=== PATIENT | male | born 1960 | race African-American/Black ===

== ENCOUNTER 2017-02-09 23:40 | Inpatient (IN) ==
[2017-02-10] MEDS ORDERED: ONDANSETRON 4 MG/2 ML VIAL IV STA (00:02)
[2017-02-10] MEDS ORDERED: SODIUM CHLORIDE 0.9% 500 ML IV STA (00:02)
[2017-02-10] MEDS ORDERED: NITROGLYCERIN 2% OINT 1 INCH/GM PACK TOP STA (00:02)
[2017-02-10] MEDS ORDERED: MORPHINE 2 MG/1 ML SYRINGE IV STA (00:02)
[2017-02-10] MEDS ORDERED: ASPIRIN 325 MG TABLET PO STA (00:02)
[2017-02-10] MEDS ORDERED: hydrALAZINE 20 MG/1 ML VIAL IV STA (00:03)
[2017-02-10] MEDS ORDERED: NITROGLYCERIN 2% OINT 1 INCH/GM PACK TOP ONE (00:08)
[2017-02-10] MEDS ORDERED: hydrALAZINE 20 MG/1 ML VIAL ONE (00:08)
[2017-02-10] MEDS ORDERED: ONDANSETRON 4 MG/2 ML VIAL ONE (00:08)
[2017-02-10] MEDS ORDERED: MORPHINE 2 MG/1 ML SYRINGE ONE (00:09)
[2017-02-10] MEDS ORDERED: ASPIRIN 325 MG TABLET ONE (00:09)
[2017-02-10 00:24] LABS: Apearance,Urine CLEAR (Clear); Bilirubin,Urine Negative (Negative); Blood, Urine Moderate mg/dL (Negative); Glucose,Urine (UA) 150 mg/dL (Negative); Ketones,Urine Negative (Negative); Nitrite,Urine Negative (Negative); Protein,Urine 30 MG/DL; RBC,Urine 33 /HPF (0-4); Urine Color Straw (Yellow); Urine Specific Gravity 1.006 (1.001-1.035); Urine Urobilinogen < 2.0 EU/DL (0.2-1.0); WBC,Urine 1 /HPF (0-6)
[2017-02-10 00:33] LABS: Bilirubin,Total 0.4 MG/DL (0.2-1.0); Magnesium 2.5 MG/DL (1.8-2.4); Osmolality,Calculated 284.1 MOS/KG (273-304); Potassium 3.4 MMOL/L (3.5-5.1); Total Protein 6.5 G/DL (6.4-8.3)
[2017-02-10 00:35] LABS: Basophils # 0.1 10*3/uL (0.0-0.2); Basophils % 0.6 % (0.0-0.8); Eosinophils # 0.2 10*3/uL (0.0-0.87); Hematocrit 41.9 VOL% (42.0-52.0); Hemoglobin 13.6 GM/DL (14.0-18.0); Immature Granulocytes % 0.8 %; Immature Granulocytes Absolute 0.09 #; Lymphocytes # 1.9 10*3/uL (1.4-4.0); Lymphocytes % 16.9 % (21.2-54.2); Mean Corpuscular HGB Conc 32.5 GM/DL (32-36); Mean Corpuscular Hemoglobin 29 PG (27-34); Mean Corpuscular Volume 89.9 FL (87-102); Mean Platelet Volume 10.6 FL (9.6-12.0); Monocytes # 0.9 10*3/uL (0.11-0.8); Monocytes % 8.3 % (1.7-12.7); Neutrophils # 7.9 10*3/uL (1.4-7.4); Neutrophils % 71.4 % (38.7-73.9); Platelet Count 235 T/CUMM (130-400); Red Blood Count 4.66 MC/CUMM (3.8-5.5); Red Cell Distribution Width 12.1 % (9.3-17.3); White Blood Count 11.1 T/CUMM (4-12)
--- NOTE | 2017-02-10 00:43 | Emergency Department Note ---
Raven Boyd Emily, am scribing for, and in the presence of, Zay Tim MD 00: 08. Glenroy Boyd Robert M, MD, personally performed the services described in this documentation, ascribed by Sarika Carbajal in my presence, and it is both accurate and complete . Arrival - Arrival Chief Complaint: Chest Pain Stated Complaint: chest pain ED Nursing Triage Note: Patient to room via ems. Patient complaining of chest pain and shortness of breath. EMS activated a stemi. rober notified but wanted EKG in the Er. Patient has demished breath sound on the right lower lobe. Patient states that he ran out of his medication yesterday and has not had his medication today. Mode of Arrival: Stretcher Limitations: No Limitations Source: Patient - History of Present Illness HPI Narrative: Pt is a 56 y/o male who came to ED by EMS for further evaluation of possible ST elevation that started earlier tonight. A STEMI alert initially was called, however, Dr. Jorgensen was alerted and he discontinued the STEMI alert and deferred the patient to the emergency department for further evaluation due to EKG results. Pt states mid sternal, non radiating chest pain started this afternoon and pain is worse with breathing causing a sharp pain. Pt denies N/V and abdomen pain. Pt notes he hasn't taken his BP medication today due to running out of nml medication yesterday. Pt's BP is 202/108 in ED. he also has some shortness of breath which worsens with his pain. The patient has had a stroke in the past. Onset (ago): hour(s) Consistency: constant Severity: moderate Severity scale (1-10): 5 Quality: sharp Allergies/Adverse Reactions: Allergies Allergy/AdvReac Type Severity Reaction Status Date / Time No Known Allergies Allergy Unverified 02/09/17 23:53 Review of System - Review of System 12 point system: reviewed and no additional remarkable complaints except as stated - Review of System Constitutional: Absent: chills, diaphoresis, fever Respiratory: Present: respiratory distress (with pain) Cardiovascular: Present: chest pain (sharp). Absent: palpitations, syncope Gastrointestinal: Absent: abdominal pain, nausea, vomiting Musculoskeletal: Absent: arm pain, neck pain Skin: Absent: rash Neurological: Absent: headache Medical,Surgical,& Family Hx - Medical History Cardio: History of: Hypertension Neurology: History of: Cerebrovascular Accident - Social History Smoking Status: Smoker, status unknown Frequency of Alcohol Use: None Type of Drug Use: None Exam Vital Signs: Vital Signs Temperature 97.8 F 02/10/17 00:00 Pulse Rate 73 02/10/17 01:00 Respiratory Rate 22 02/10/17 01:00 Blood Pressure 230/123 02/10/17 01:00 O2 Sat by Pulse Oximetry 100 02/10/17 01:00 - General General appearance: alert, in no apparent distress - Head Head exam: Present: atraumatic, normocephalic - Eye Eye exam: Present: PERRL, EOMI - ENT ENT exam: Present: mucous membranes moist. Absent: mucous membranes dry - Neck Neck exam: Present: full ROM. Absent: tenderness - Chest Chest inspection: Present: symmetric chest wall rise. Absent: tenderness - Respiratory Respiratory exam: Present: normal lung sounds bilaterally. Absent: respiratory distress - Cardiovascular Cardiovascular exam: Present: regular rate, normal rhythm, normal heart sounds - Abdominal Exam Abdominal exam: Present: soft. Absent: tenderness - Extremities Exam Extremities exam: Present: full ROM. Absent: tenderness, pedal edema - Neurological Exam Neurological exam: Present: alert, oriented X3, CN II-XII intact. Absent: motor sensory deficit - Psychiatric Psychiatric exam: Present: normal affect, normal mood - Skin Skin exam: Present: warm, dry Course - Consultations Consultation #1: Dr. Jorgensen will admit the patient. He requests the patient be placed on beta-blockers, aspirin, nitroglycerin, and Lovenox. Time: 00:56 Results - Labs CBC & BMP: 02/10/17 00:00 02/10/17 00:00 Lab Results: I have reviewed the patients labs Labs: Lab Results WBC 11.1 T/CUMM (4-12) 02/10/17 00:00 RBC 4.66 MC/CUMM (3.8-5.5) 02/10/17 00:00 Hgb 13.6 GM/DL (14.0-18.0) L 02/10/17 00:00 Hct 41.9 VOL% (42.0-52.0) L 02/10/17 00:00 MCV 89.9 FL (87-102) 02/10/17 00:00 MCH 29 PG (27-34) 02/10/17 00:00 MCHC 32.5 GM/DL (32-36) 02/10/17 00:00 RDW 12.1 % (9.3-17.3) 02/10/17 00:00 Plt Count 235 T/CUMM (130-400) 02/10/17 00:00 MPV 10.6 FL (9.6-12.0) 02/10/17 00:00 Neut % (Auto) 71.4 % (38.7-73.9) 02/10/17 00:00 Lymph % (Auto) 16.9 % (21.2-54.2) L 02/10/17 00:00 [place] % (Auto) 8.3 % (1.7-12.7) 02/10/17 00:00 Eos % (Auto) 2.0 % (0.00-10.9) 02/10/17 00:00 Baso % (Auto) 0.6 % (0.0-0.8) 02/10/17 00:00 Neut # (Auto) 7.9 10*3/uL (1.4-7.4) H 02/10/17 00:00 Lymph # (Auto) 1.9 10*3/uL (1.4-4.0) 02/10/17 00:00 [place] # (Auto) 0.9 10*3/uL (0.11-0.8) H 02/10/17 00:00 Eos # (Auto) 0.2 10*3/uL (0.0-0.87) 02/10/17 00:00 Baso # (Auto) 0.1 10*3/uL (0.0-0.2) 02/10/17 00:00 Immature Gran % 0.8 % 02/10/17 00:00 Nucleated RBC % 0.0 /100WBC 02/10/17 00:00 Immature Gran # 0.09 # 02/10/17 00:00 Nucleated RBCs # 0.00 10*3/uL 02/10/17 00:00 INR 1.0 02/10/17 00:00 PT Patient/Control Mix 10.0 SECS 02/10/17 00:00 Sodium 142 MMOL/L (136-145) 02/10/17 00:00 Potassium 3.4 MMOL/L (3.5-5.1) L 02/10/17 00:00 Chloride 106 MMOL/L (98-107) 02/10/17 00:00 Carbon Dioxide 30 MMOL/L (21-32) 02/10/17 00:00 Anion Gap 9.4 MMOL/L (5.0-15.0) 02/10/17 00:00 BUN 25 MG/DL (7-18) H 02/10/17 00:00 Creatinine 2.80 MG/DL (0.70-1.30) H 02/10/17 00:00 GFR Calculation 34 ML/MIN 02/10/17 00:00 BUN/Creatinine Ratio 8.00 RATIO (6.00-20.00) 02/10/17 00:00 Glucose 61 MG/DL (74-106) L 02/10/17 00:00 Calculated Osmolality 284.1 MOS/KG (273-304) 02/10/17 00:00 Calcium 9.0 MG/DL (8.5-10.1) 02/10/17 00:00 Magnesium 2.5 MG/DL (1.8-2.4) H 02/10/17 00:00 Total Bilirubin 0.40 MG/DL (0.2-1.0) 02/10/17 00:00 AST 43 U/L (0-37) H 02/10/17 00:00 ALT 39 U/L (16-61) 02/10/17 00:00 Alkaline Phosphatase 97 U/L (45-117) 02/10/17 00:00 Total Protein 6.5 G/DL (6.4-8.3) 02/10/17 00:00 Albumin 4.0 G/DL (3.4-5.0) 02/10/17 00:00 Globulin 2.5 G/DL (2.3-3.5) 02/10/17 00:00 Albumin/Globulin Ratio 1.6 RATIO (1.1-2.2) 02/10/17 00:00 Lipase 722.0 U/L (73-393) H 02/10/17 00:00 Urine Color Straw (Yellow) 02/10/17 00:00 Urine Appearance Clear (Clear) 02/10/17 00:00 Urine pH 7.0 (4.5-8.0) 02/10/17 00:00 Ur Specific [place] 1.006 (1.001-1.035) 02/10/17 00:00 Urine Protein 30 MG/DL 02/10/17 00:00 Urine Glucose (UA) 150 mg/dL (Negative) 02/10/17 00:00 Urine Ketones Negative mg/dL (Negative) 02/10/17 00:00 Urine Blood Moderate mg/dL (Negative) 02/10/17 00:00 Urine Nitrate Negative (Negative) 02/10/17 00:00 Urine Bilirubin Negative mg/dL (Negative) 02/10/17 00:00 Urine Urobilinogen < 2.0 EU/DL (0.2-1.0) H 02/10/17 00:00 Urine Leukocytes Negative Kristin/ul (Negative) 02/10/17 00:00 Urine RBC 33 /HPF (0-4) 02/10/17 00:00 Urine WBC 1 /HPF (0-6) 02/10/17 00:00 Ur Culture Indicated? Not indicated 02/10/17 00:00 Laboratory Tests 02/10/17 00:00 Troponin I 4.170 H - EKG EKG results: interpreted by ERMD (2 EKGs obtained. The first demonstrates a wide complex left bundle branch appearing rhythm with no ST elevation. The patient had a second EKG which demonstrates normal sinus rhythm with inverted T waves inferiorly and laterally with no ST elevation. Dr. Jorgensen is aware of the changes.) - Diagnostic Findings Procedure: Chest x-ray: image reviewed by me (No acute process) Disposition Clinical Impression: Non-STEMI (non-ST elevated myocardial infarction), Elevated lipase, Chest pain Case discussed with: patient Disposition: Still a Patient Condition: Stable Time of Disposition: 00:49
[2017-02-10] MEDS ORDERED: ONDANSETRON 4 MG/2 ML VIAL IV PRN (00:56)
[2017-02-10] MEDS ORDERED: MAGNESIUM SULF RIDER 4 GM in PREMIX 1 EACH IV PRN (00:56)
[2017-02-10] MEDS ORDERED: guaiFENesin/DM ER 600-30 MG TABLET PO PRN (00:56)
[2017-02-10] MEDS ORDERED: ZALEPLON 5 MG CAPSULE PO PRN (00:56)
[2017-02-10] MEDS ORDERED: MORPHINE 2 MG/1 ML SYRINGE IV PRN (00:56)
[2017-02-10] MEDS ORDERED: DOCUSATE SODIUM 100 MG CAPSULE PO PRN (00:56)
[2017-02-10] MEDS ORDERED: diphenhydrAMINE CAP 25 MG CAPSULE PO PRN (00:56)
[2017-02-10] MEDS ORDERED: MAGNESIUM SULF RIDER 2 GM in PREMIX 1 EACH IV PRN ×2 (00:56→18:15)
[2017-02-10] MEDS ORDERED: ENOXAPARIN 100 MG/ML SYRINGE SUBCUT SCH (01:00)
[2017-02-10] MEDS ORDERED: niCARdipine 25 MG/10 ML VIAL IV ONE (01:09)
[2017-02-10] MEDS: niCARdipine INJ 25 MG in SODIUM CHLORIDE 0.9% 240 ML IV SCH ×3 (01:19→10:40)
[2017-02-10 01:29] LABS: CKMB % 3.6 %
[2017-02-10 01:37] LABS: Troponin I Only 4.15 NG/ML (0.00-0.045)
[2017-02-10] MEDS: SODIUM CHLORIDE 0.45% 1,000 ML IV SCH ×2 (02:50→10:14)
--- NOTE | 2017-02-10 07:45 | Cardiology History & Physical ---
Assessment and Plan - Time spent with patient Time spent with patient: Greater than 30 minutes (1) Non-STEMI (non-ST elevated myocardial infarction) Status: Acute Assessment and plan: Of note, it appears that his chest wall pain was reproducible with what brought him in. However, his troponins were mildly high on admission at higher overnight. He seems to had a non-STEMI. He has not had a STEMI Plan/recommendation: treat for [id number], Lovenox, beta-woody Hydrate cautiously with saline Reassess renal function in a.m. If creatinine is decreasing we will proceed with cath, will use cardiac swing protocol to minimize contrast Replete potassium Restart the amlodipine from home. Leave off HCTZ Check lipids and treat per guidelines. Echo to evaluate murmur Brilinta 180 mg was given Left heart cath and possible PTCA or stent in the a.m. The risk and benefits were discussed. He agrees to proceed. See H&P sedation uptake I discussed with the patient the benefits of stopping tobacco/nicotine, the problems with continuing to use it, and options of treatment. The patient is considering this option. Current Visit: Yes (2) Chest wall pain Status: Acute Current Visit: Yes (3) Hypertension Status: Acute Current Visit: Yes (4) Elevated serum creatinine Status: Acute Current Visit: Yes (5) Hypokalemia Status: Acute Current Visit: Yes (6) History of stroke Status: Acute Current Visit: Yes (7) LVH (left ventricular hypertrophy) due to hypertensive disease Status: Acute Current Visit: Yes (8) Smoker Status: Acute Current Visit: Yes (9) Murmur Status: Acute Current Visit: Yes (10) Chest pain Status: Acute Current Visit: Yes (11) Elevated lipase Status: Acute Current Visit: Yes History of Present Illness Chief complaint: "I hurt my chest and was short of breath" History of present illness: Mr. Gregorio is a 56 year old male PCP: Dr. Michael Dey Crop Duster Helper: None The patient is 56. He ran out of meds a few days ago. His blood pressure is higher. 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 He did not have any trauma to his chest and did not have any injury to his chest. However he began to have knifelike chest pain in his chest. It is worse with deep breath. It lessened if he change positions. Last about 10 minutes or so. There is some associated shortness breath but no nausea diaphoresis. No dysphagia odynophagia GE reflux. He was seen by EMS. They did an EKG. They called a STEMI protocol code. However, I saw the EKG and saw it was LVH with strain so he was taken to the ER. Repeat EKG showed the same EKG. He is not having a STEMI. However his troponins were elevated. He has had a non-STEMI. He was admitted. No orthopnea, PND, edema, palpitations, syncope, cough, wheezing, or phlegm. No diabetes Has had a stroke 3 years ago Says he has some kidney problems due to his hypertension Hypertension Does smoke cigarettes. Does not drink alcohol. There is a family history of some CAD and some diabetes SPH: Occasional, yes, yes and yes. Review of systems is marked for decreased visual acuity. No bleeding in the pt's bowels, urine, or coughing up blood. No planned surgery for the next year. No contraindication to anticoagulation for a year. Home Medications Medication Instructions Recorded Confirmed Type Amlodipine Besylate 10 mg PO DAILY 02/10/17 02/10/17 History Chlorthalidone 25 mg PO DAILY 02/10/17 02/10/17 History Hydrocodone/Acetaminophen [[place] 1 tablet PO Q6HR PRN 02/10/17 02/10/17 History 10-325 Tablet] Tizanidine HCl [Zanaflex] 2 mg PO TID 02/10/17 02/10/17 History hydroCHLOROthiazide 25 mg PO DAILY 02/10/17 02/10/17 History [Hydrochlorothiazide] Allergies Allergy/AdvReac Type Severity Reaction Status Date / Time No Known Allergies Allergy Unverified 02/09/17 23:53 12 point system: reviewed and no additional remarkable complaints except as stated (A 12 point review of systems is negative except for as mentioned in the HPI.) Medical,Surgical,& Family Hx - Medical History Cardio: History of: Hypertension Neurology: History of: Cerebrovascular Accident - Family History Family History: Reports;: Family Cancer (Father), Family Diabetes (Mother), Family Hypertension (Sister) - Social History Smoking Status: Current every day smoker Have you smoked in the last 12 months: Yes Time spent discussing smoking cessation with patient: 3 to 10 minutes Frequency of Alcohol Use: Frequently Type of Drug Use: None Functional capacity: independent ambulation Cardiology Physical Exam - Constitutional Vitals: Vital Signs Temp Pulse Resp BP Pulse Ox 98.6 F 71 24 149/81 98 02/10/17 04:00 02/10/17 06:00 02/10/17 06:00 02/10/17 06:45 02/10/17 06:00 Intake and Output 02/09/17 02/09/17 02/10/17 15:59 23:59 07:59 Intake Total 350 / 850 Output Total 700 / 700 Balance -350 / 150 Intake: IV 250 / 250 Cardene Inj 25 mg In Ns 250 / 250 240 ml @ 5 MG/HR 50 mls/ hr IV TITRATE DARLINE Rx#: [id number] Oral 100 / 100 Output: Urine 700 / 700 Other: Voiding Method Urinal Weight 90.492 kg Patient Weight 02/10/17 23:59 Weight 90.492 kg Exam: HEENT: Pupils equal, reactive to light and accommodation Neck: NoJVD or bruit Lungs clear to auscultation Heart: Regular rhythm rate with normal S1 and S2. Apical S4 1-2/6 systolic ejection murmur along the left lower sternal border. Abdomen: No hepatosplenomegaly, Spine/extremities: No clubbing, cyanosis, or edema Neuro: Nonfocal Psych: No depression or anxiety Femoral pulses are 4+. Foot pulses are 2+. Result/EKG - Labs CBC & BMP: 02/10/17 00:00 02/10/17 00:00 Lab Results: I have reviewed the past 24 hour labs Labs: Laboratory Results - last 24 hr 02/10/17 Unknown Total Creatine Kinase 508 H CK-MB (CK-2) 18.5 H CK and CKMB Interp 3.6 Troponin I 4.150 H - Diagnostic Findings Procedure: Chest x-ray: report reviewed by me - EKG EKG results: interpreted by me
--- NOTE | 2017-02-10 07:56 | XRay Report ---
XR chest 1V portable Indication: Chest pain. Chest one view: No comparison. Heart is borderline enlarged. Aorta slightly tortuous. Lungs are hypoinflated with atelectasis but otherwise clear. Pleural spaces are clear. Impression: Borderline cardiomegaly. Pulmonary hypoinflation with vascular crowding and atelectasis. PROCEDURE INTERPRETED AT [facility] DEPARTMENT OF RADIOLOGY Final Report Signed by: Omero Be M.D.
[2017-02-10] MEDS ORDERED: METOPROLOL TARTRATE 50 MG TABLET PO SCH (09:00)
[2017-02-10] MEDS: PANTOPRAZOLE 40 MG TABLET PO SCH (09:20)
[2017-02-10] MEDS: NITROGLYCERIN 2% OINT 1 INCH/GM PACK TOP SCH ×2 (09:21→20:42)
--- NOTE | 2017-02-10 09:48 | EKG Report ---
Stationary ECG Study 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
--- NOTE | 2017-02-10 09:48 | EKG Report ---
Please refer to the EKG image. Final interpretation is pending.
[2017-02-10] MEDS ORDERED: ASPIRIN CHEW 81 MG TABLET PO ONE (10:01)
[2017-02-10 10:02] LABS: CKMB % 6.8 %
[2017-02-10 10:05] LABS: Troponin I Only 23.7 NG/ML (0.00-0.045)
[2017-02-10] MEDS: POTASSIUM CHLORIDE 20 MEQ TABLET PO PRN ×3 (10:36→20:41)
[2017-02-10] MEDS: amLODIPine 10 MG TABLET PO SCH (10:36)
[2017-02-10] MEDS: ACETAMINOPHEN 325 MG TABLET PO SCH ×2 (10:36→20:41)
[2017-02-10] MEDS: traMADol 50 MG TABLET PO SCH ×2 (10:36→20:41)
[2017-02-10] MEDS: GABAPENTIN 100 MG CAPSULE PO SCH ×3 (10:37→20:41)
[2017-02-10] MEDS: SODIUM CHLORIDE 0.9% 1,000 ML IV SCH (10:38)
[2017-02-10] MEDS ORDERED: TICAGRELOR 90 MG TABLET PO ONE (12:35)
--- NOTE | 2017-02-10 13:39 | ECHO Report ---
Karthik Gregorio Exam Date: 02/10/2017 10:22 Referring Physician: Technologist: July Mcgovern RDCS Age: 56 Ht (in): 71 Wt (lb): 199 Gender: M Exam Location: [facility] Echo Indications: Chest pain, unspecified, Non-ST elevation (NSTEMI) myocardial infarction, Shortness of breath, Essential (primary) hypertension, Nicotine dependence, cigarettes, uncomplicated, hx CVA BP: 137 / 75 HR: 55 Rhythm: Sinus Technical Quality: Good IMPRESSIONS Left ventricular ejection fraction is estimated at >55 %. Severe left ventricular hypertrophy. Normal left ventricular cavity size. The right atrium is mildly enlarged. Moderately increased left atrial size. Trace mitral valve regurgitation. Mild aortic valve regurgitation. Aortic valve sclerosis without stenosis. Trace to mild tricuspid valve regurgitation. Tricuspid regurgitation velocities suggest a PAP of 49 mmHg. Mild pulmonary valve regurgitation. MEASUREMENTS (Male / Female) Normal Values 2D ECHO LV Diastolic Diameter PLAX 4.1 cm 4.2 - 5.9 / 3.9 - 5.3 cm LV Systolic Diameter PLAX 3.3 cm LV Fractional Shortening PLAX 19.3 % IVS Diastolic Thickness 2.4 cm 0.6 - 1.0 / 0.6 - 0.9 cm LVPW Diastolic Thickness 2.2 cm 0.6 - 1.0 / 0.6 - 0.9 cm RV Internal Dim ED PLAX 3.2 cm Aortic Root Diameter 3.1 cm LA Systolic Diameter LX 5.0 cm 3.0 - 4.0 / 2.7 - 3.8 cm DOPPLER TR Peak Velocity 311.0 cm/s TR Peak Gradient 38.7 mmHg FINDINGS Left Ventricle Normal left ventricular cavity size. Severe left ventricular hypertrophy. Left ventricular ejection fraction is estimated at >55 %. Right Ventricle The right ventricle is normal in size and function. Right Atrium The right atrium is mildly enlarged. Left Atrium Moderately increased left atrial size. Mitral Valve Morphologically normal mitral valve. Trace mitral valve regurgitation. Aortic Valve Aortic valve sclerosis without stenosis. mild aortic valve regurgitation. Tricuspid Valve Morphologically normal tricuspid valve. Trace to mild tricuspid valve regurgitation. Tricuspid regurgitation velocities suggest a PAP of 49 mmHg. Pulmonic Valve Morphologically normal pulmonic valve. Mild pulmonary valve regurgitation. Pericardium Normal pericardium without effusion. Aorta Normal ascending aorta dimension. Moises Jorgensen MD (Electronically Signed) Final Date: 10 February 2017 13:39
[2017-02-10] MEDS: tiZANidine 4 MG TABLET PO SCH ×2 (14:42→20:41)
[2017-02-10] MEDS: ENOXAPARIN 100 MG/ML SYRINGE SUBCUT SCH (14:42)
--- NOTE | 2017-02-10 17:13 | EKG Report ---
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
[2017-02-10 18:05] LABS: CKMB % 6.4 %
[2017-02-10 18:06] LABS: Troponin I Only 31.1 NG/ML (0.00-0.045)
[2017-02-10] MEDS ORDERED: diphenhydrAMINE CAP 25 MG CAPSULE PO ONE (18:15)
[2017-02-10] MEDS ORDERED: POTASSIUM CHLORIDE RIDER 10 MEQ in PREMIX 1 EACH IV PRN (18:15)
[2017-02-10] MEDS ORDERED: DIAZEPAM 5 MG TABLET PO ONE (18:15)
--- NOTE | 2017-02-10 18:19 | History and Physical Update ---
Sedation H&P Update - History and Physical H&P was reviewed, the patient examined and there: are no changes in the patients condition since last H&P was completed. (No bleeding in the pt's bowels , urine, or coughing up blood. No planned surgery for the next year. No contraindication to anticoagulation for a year.) - Dictation Physical: refer to H&P completed by admitting physician (Bilateral femoral pulses are 3-4+. Foot pulses are 2+.) - Physical Exam Mental Status: alert and oriented Heart: regular rate and rhythm Lung: clear to auscultation Abdomen: within normal limits Vitals: within normal limits - Sedation Plan for Sedation: minimal Patient Consent: Procedure disscussed with patient and patinet has consented., Risks and benefits were discussed with patient,including infection,, bleeding, injury to surrounding structures, seizure, temporary nerve, Patient understands and accepts potential risks/benefits and agrees to (Left heart cath and possible PTCA or stent were discussed with the patient. The risk of the procedure include but are not limited to a small risk of injury to the vessel, abnormal heart rhythm, stroke, heart attack, need for emergent surgery, contrast reaction, restenosis, or . The patient voices understanding, agrees with the plan, and desires to proceed with the heart catheterization.), proceed. ASA Class: III Airway Assessment: Class III: Soft palate, base of uvula visible
[2017-02-10] MEDS ORDERED: CARVEDILOL 3.125 MG TABLET PO SCH (21:00)
[2017-02-11] MEDS: ENOXAPARIN 100 MG/ML SYRINGE SUBCUT SCH (00:07)
[2017-02-11 04:45] LABS: Basophils # 0.1 10*3/uL (0.0-0.2); Basophils % 0.7 % (0.0-0.8); Eosinophils # 0.3 10*3/uL (0.0-0.87); Eosinophils % 3.3 % (0.00-10.9); Hematocrit 37.9 VOL% (42.0-52.0); Hemoglobin 12.4 GM/DL (14.0-18.0); Immature Granulocytes % 0.2 %; Immature Granulocytes Absolute 0.02 #; Mean Corpuscular HGB Conc 32.7 GM/DL (32-36); Mean Corpuscular Hemoglobin 29 PG (27-34); Mean Corpuscular Volume 89.6 FL (87-102); Mean Platelet Volume 10.5 FL (9.6-12.0); Monocytes # 0.9 10*3/uL (0.11-0.8); Monocytes % 10.7 % (1.7-12.7); Neutrophils # 5.2 10*3/uL (1.4-7.4); Neutrophils % 61.1 % (38.7-73.9); Platelet Count 211 T/CUMM (130-400); Red Blood Count 4.23 MC/CUMM (3.8-5.5); Red Cell Distribution Width 12.4 % (9.3-17.3); White Blood Count 8.5 T/CUMM (4-12)
[2017-02-11 05:13] LABS: Albumin 3.1 G/DL (3.4-5.0); Bilirubin,Total 0.9 MG/DL (0.2-1.0); Calcium 8.1 MG/DL (8.5-10.1); Potassium 4.5 MMOL/L (3.5-5.1); Total Protein 5.4 G/DL (6.4-8.3)
[2017-02-11] MEDS: SODIUM CHLORIDE 0.9% 1,000 ML IV SCH ×3 (06:38→22:43)
[2017-02-11] MEDS ORDERED: SODIUM CHLORIDE 0.9% 1,000 ML IV SCH (07:00)
[2017-02-11] MEDS ORDERED: diphenhydrAMINE CAP 25 MG CAPSULE PO ONE (07:00)
[2017-02-11] MEDS ORDERED: DIAZEPAM 5 MG TABLET PO ONE (07:00)
--- NOTE | 2017-02-11 07:25 | Cardiology Progress Note ---
Cardiology - PN: Subj Interval history: Cardiology note 56-year-old man with chronic hypertension admitted with chest pain and non-Q- wave PA. Total CPK 518 troponin IV 0.150 Also has chronic renal failure. Creatinine 2.80 BUN 25 No pain. O2 sat 97% on 2 L Telemetry shows sinus rhythm in the 60s and 70s Blood pressure 150/90 Decreased breath sounds but clear Regular rhythm no gallop Abdomen soft benign Femoral pulses 2+ without bruit distal pulses 2+ Lab data today Sodium 143 potassium 4.5 chloride 112 CO2 24 BUN 25 creatinine 2.80 glucose 87 Peak CPK 518 troponin IV 0.150 BNP 147 Echo Doppler showed ejection fraction of 55% with moderate LVH, moderate dilated left atrium, aortic valve sclerosis, normal RV function, moderate TR PA pressure [address] Jorgensen Impression Non-Q-wave infarction Chronic hypertension Chronic renal failure creatinine 2.80 History of stroke 2013 Active smoker Noncompliance with medication Plan Cardiac cath. Procedure, risk benefits discussed in layman's terms with nurse Pravin present for the entire discussion. All questions answered. He agrees to proceed as outlined. Patient is fully aware of the increased risk for progressive renal failure with contrast administration. Patient will require aggressive lifestyle changes and risk factor modification Normal saline hydration Exam (Progress Note) - Constitutional Vitals: Period Temp Pulse Resp BP Sys/[place] Pulse Ox Last 24 Hr 97.7 F-98.2 F 42-104 15-20 110-185/49-100 98-100 Result/EKG - Labs CBC & BMP: 02/11/17 03:37 02/11/17 03:36 Labs: Laboratory Results - last 24 hr 02/10/17 02/10/17 02/10/17 07:44 08:40 17:02 WBC RBC Hgb Hct MCV MCH MCHC RDW Plt Count MPV Neut % (Auto) Lymph % (Auto) [place] % (Auto) Eos % (Auto) Baso % (Auto) Neut # (Auto) Lymph # (Auto) [place] # (Auto) Eos # (Auto) Baso # (Auto) Immature Gran % Nucleated RBC % Immature Gran # Nucleated RBCs # Sodium Potassium Chloride Carbon Dioxide Anion Gap BUN Creatinine GFR Calculation BUN/Creatinine Ratio Glucose POC Glucose 96 Calculated Osmolality Calcium Total Bilirubin AST ALT Alkaline Phosphatase Total Creatine Kinase 461 H 337 H D CK-MB (CK-2) 31.3 H D 21.5 H D CK and CKMB Interp 6.8 6.4 Troponin I 23.700 H D 31.100 H D Total Protein Albumin Globulin Albumin/Globulin Ratio 02/11/17 02/11/17 03:36 03:37 WBC 8.5 RBC 4.23 Hgb 12.4 L Hct 37.9 L MCV 89.6 MCH 29 MCHC 32.7 RDW 12.4 Plt Count 211 MPV 10.5 Neut % (Auto) 61.1 Lymph % (Auto) 24.0 [place] % (Auto) 10.7 Eos % (Auto) 3.3 Baso % (Auto) 0.7 Neut # (Auto) 5.2 Lymph # (Auto) 2.0 [place] # (Auto) 0.9 H Eos # (Auto) 0.3 Baso # (Auto) 0.1 Immature Gran % 0.2 Nucleated RBC % 0.0 Immature Gran # 0.02 Nucleated RBCs # 0.00 Sodium 143 Potassium 4.5 Chloride 112 H Carbon Dioxide 24 Anion Gap 11.5 BUN 25 H Creatinine 2.80 H GFR Calculation 34 BUN/Creatinine Ratio 8.00 Glucose 87 POC Glucose Calculated Osmolality 287.0 Calcium 8.1 L Total Bilirubin 0.90 AST 36 ALT 29 Alkaline Phosphatase 66 Total Creatine Kinase CK-MB (CK-2) CK and CKMB Interp Troponin I Total Protein 5.4 L Albumin 3.1 L Globulin 2.3 Albumin/Globulin Ratio 1.3
[2017-02-11] MEDS ORDERED: ASPIRIN CHEW 81 MG TABLET PO SCH (09:00)
[2017-02-11] MEDS: NITROGLYCERIN 2% OINT 1 INCH/GM PACK TOP SCH ×2 (09:07→20:16)
[2017-02-11] MEDS: amLODIPine 10 MG TABLET PO SCH (09:08)
[2017-02-11] MEDS: PANTOPRAZOLE 40 MG TABLET PO SCH (09:09)
[2017-02-11] MEDS: traMADol 50 MG TABLET PO SCH ×2 (09:09→20:16)
[2017-02-11] MEDS: tiZANidine 4 MG TABLET PO SCH ×3 (09:09→20:16)
[2017-02-11] MEDS: GABAPENTIN 100 MG CAPSULE PO SCH ×3 (09:09→20:15)
[2017-02-11] MEDS: ACETAMINOPHEN 325 MG TABLET PO SCH ×2 (09:09→20:15)
[2017-02-11] MEDS ORDERED: LIDOCAINE 1% 20 ML VIAL ONE (09:46)
[2017-02-11] MEDS ORDERED: MIDAZOLAM 2 MG/2 ML VIAL ONE (09:47)
[2017-02-11] MEDS ORDERED: MEPERIDINE 25 MG/1 ML VIAL ONE (09:47)
[2017-02-11] MEDS ORDERED: ASPIRIN CHEW 81 MG TABLET PO ONE (09:47)
[2017-02-11] MEDS ORDERED: TIROFIBAN 5,000 MCG/100 ML PREMIX IV ONE (10:21)
[2017-02-11] MEDS ORDERED: HEPARIN 5,000 UNIT/1 ML VIAL ONE (10:28)
[2017-02-11] MEDS ORDERED: NITROGLYCERIN DRIP 50 MG/250 ML BOTTLE IV ONE (10:48)
[2017-02-11] MEDS ORDERED: TICAGRELOR 90 MG TABLET ONE (11:00)
[2017-02-11] MEDS ORDERED: NIFEdipine 10 MG CAPSULE ONE (11:07)
--- NOTE | 2017-02-11 11:22 | Operative Note ---
Date of procedure: 02/11/17 Procedure Preformed: Left heart cath Coronary angiography Angiogram of the right femoral artery Stent of the right coronary [id number] stent, 4.0 x 18 mm Zions Alpine , after pre-dilating with a 3.5 x 15 mm NC apex Loading with Brilinta, 180 mg p.o. Angio-Seal of the right femoral artery-successful A total of 115 cc of Visipaque was used-- Surgeon / Physician: Moises Jorgensen Cake Wrapper: Leah Vanegas Post-op diagnosis: same (Patient has a non-STEMI and also has had some chest wall pain. He has hypertension, is a smoker. Patient has LVH with strain on EKG.) Findings: Impression: Significant disease in the mid right coronary-95%, GYPSY grade III flow --mid vessel, large vessel, dominant Moderate disease in the proximal and mid LAD-50% lesions Mild disease in circumflex No LV gram was done-to conserve contrast exposure because of his renal insufficiency--he had an echocardiogram done post ID which showed normal LVEF and 3+ LVH Aggrastat bolus and infusion-for ACS Status post successful stenting of the mid right coronary artery-4.0 x 18 mm Zions Alpine, after pre-dilating with a 3.5 x 15 mm NC apex Angiogram right femoral artery Angio-Seal of the right femoral artery-successful Loading with Brilinta, 180 mg p.o. Plan/recommendations: The patient will have risk factors optimized. The patient did have a non-STEMI, involve the right coronary. He has had intervention. I have emphasized to him to the patient importance of taking his medication, particularly the aspirin and the Brilinta/Plavix. In the past, at times is run out of his antihypertensive medicines and she has not taken them. I emphasized to him that could not be done with these post ID/stent medications. He voices understanding. He agrees. Otherwise, we will adjust medication to better treat his hypertension. His renal function will be assessed tomorrow. He will be hydrated well overnight with saline, hopefully will prevent some worsening renal function. The patient will be on antiplatelet medications to include aspirin indefinitely and Plavix or Brilinta for at least a year. Follow-up will be scheduled. Addenda: I saw the patient post-cath. the groin puncture site and distal pulse are stable. vital signs are stable and the patient will be observed closely overnight. Specimens: none sent Estimated blood loss: minimal Condition: stable Anesthesia: local, conscious sedation Disposition: ICU
[2017-02-11] MEDS ORDERED: TIROFIBAN 5,000 MCG/100 ML PREMIX IV SCH (11:30)
--- NOTE | 2017-02-11 11:30 | Cardiology Operative Report ---
Date of Procedure:: 02/11/17 Post-op diagnosis: same (Patient has a non-STEMI and also has had some chest wall pain. He has hypertension, is a smoker. Patient has LVH with strain on EKG.) Procedure: Date of procedure: 02/11/17 Procedure Preformed: Left heart cath Coronary angiography Angiogram of the right femoral artery Stent of the right coronary [id number] stent, 4.0 x 18 mm Zions Alpine , after pre-dilating with a 3.5 x 15 mm NC apex Loading with Brilinta, 180 mg p.o. Angio-Seal of the right femoral artery-successful A total of 115 cc of Visipaque was used-- Surgeon / Physician: Moises Jorgensen Electro Mechanical Engineer: Leah Vanegas Post-op diagnosis: same (Patient has a non-STEMI and also has had some chest wall pain. He has hypertension, is a smoker. Patient has LVH with strain on EKG.) procedure: The patient was prepped and draped in usual manner. Entered the right femoral artery via the Seldinger technique. I used a sheath and then used a JL4 and engaged left coronary. Cardiac sling was used to minimize contrast, 1 injection I then exchanged for a JR4. 2 views of the right coronary were taken. The interventional procedure was then done-see below. I crossed the valve with the JR4 guide. Left ventricular end-diastolic pressures measured. no Left ventriculography was done. Left ventricle pullback was done. The catheters were then removed from the patient. Please see the data sheets for the details of catheters used. Intervention: Cardiovascular surgery was available for any complications. The coronary intervention was done using a JR4 guiding catheter, 0.014 run through wire,, After predilatation with a 3.5 x 15 mm NC apex[3.5 x 12 mm NC apex squeegeed out of the lesion], then placed a 4.0 x 18 mm Zions Alpine coronary stent across the lesion. It was deployed. Afterwards, there was some narrowing proximally and distally. It has appearance of a curtain alvaro finding, straightening curve vessel. I removed the balloon and gave some intracoronary nitroglycerin. I then did a test shot and it indicated it was much better. I removed the wire and appeared there was no dissection. Angiogram of the artery after intervention was done. There was a good result.. Angiogram of the right femoral artery was done, either at that time . Angio- Seal was done. Patient was transferred to her room on telemetry in satisfactory condition. Please see the cath report for details of the pressures and times. Complications: none Hemodynamic data: LVEDP was 34 mmHg. Angiographic data: The left main coronary was large and had minimal luminal irregularities. The left anterior descending artery was large. There is one major diagonal. It was approximately mid lesion which was 50%, eccentric, and smooth Otherwise, there are minimal luminal irregularities. The left circumflex system was moderate to large. It was 1 major obtuse marginal and 1 posterior lateral branches. Otherwise there are minimal luminal irregularities in the circumflex The right coronary artery was large in size, dominant vessel with the PDA. There was a moderate sized post lateral branch. There was moderate tortuosity throughout the vessel. The midportion had a 99% narrowing with GYPSY grade III flow. Otherwise there were minimal luminal irregularities and some mild to moderate disease within the vessel. After intervention of the right coronary there was a slight stepup and stepdown. There is a 0% residual. the area of curtain alvaro findings was gone after removal of the wire and giving intracoronary nitroglycerin Angiogram of the right femoral artery revealed the puncture site to be in a large vessel, above the bifurcation. It was suitable for Angio-Seal. Findings: Impression: Significant disease in the mid right coronary-95%, GYPSY grade III flow --mid vessel, large vessel, dominant Moderate disease in the proximal and mid LAD-50% lesions Mild disease in circumflex No LV gram was done-to conserve contrast exposure because of his renal insufficiency--he had an echocardiogram done post DE which showed normal LVEF and 3+ LVH LVEDP is high at 34 mmHg. Aggrastat bolus and infusion-for ACS Status post successful stenting of the mid right coronary artery-4.0 x 18 mm Syeda Ding, after pre-dilating with a 3.5 x 15 mm NC apex Angiogram right femoral artery Angio-Seal of the right femoral artery-successful Loading with Brilinta, 180 mg p.o. Plan/recommendations: The patient will have risk factors optimized. The patient did have a non-STEMI, involve the right coronary. He has had intervention. I have emphasized to him to the patient importance of taking his medication, particularly the aspirin and the Brilinta/Plavix. In the past, at times is run out of his antihypertensive medicines and she has not taken them. I emphasized to him that could not be done with these post DE/stent medications. He voices understanding. He agrees. Otherwise, we will adjust medication to better treat his hypertension. His renal function will be assessed tomorrow. He will be hydrated well overnight with saline, hopefully will prevent some worsening renal function. The patient will be on antiplatelet medications to include aspirin indefinitely and Plavix or Brilinta for at least a year. Follow-up will be scheduled. Addenda: I saw the patient post-cath. the groin puncture site and distal pulse are stable. vital signs are stable and the patient will be observed closely overnight. Specimens: none sent Estimated blood loss: minimal Condition: stable Anesthesia: local, conscious sedation Disposition: ICU Additional CC's: Moises Quiñonez Anesthesia: local, minimal conscious sedation Surgeon / Physician: Moises Jorgensen Electro Mechanical Engineer: other Estimated blood loss: minimal Specimens: none sent Condition: stable Disposition: ICU/CCU
--- NOTE | 2017-02-11 12:24 | EKG Report ---
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
[2017-02-11 13:11] LABS: Risk Ratio 3.27; VLDL CHOLESTEROL 10.8 MG/DL
[2017-02-11] MEDS: MINOXIDIL 2.5 MG TABLET PO SCH ×2 (13:19→20:15)
[2017-02-11] MEDS: ATORVASTATIN 20 MG TABLET PO SCH (13:19)
[2017-02-11] MEDS: CARVEDILOL 6.25 MG TABLET PO SCH ×2 (15:53→20:15)
[2017-02-11 19:34] LABS: CKMB % 5.2 %
[2017-02-11 19:35] LABS: Troponin I Only 23.1 NG/ML (0.00-0.045)
[2017-02-11] MEDS: TICAGRELOR 90 MG TABLET PO SCH (20:16)
[2017-02-12 04:52] LABS: Basophils % 0.4 % (0.0-0.8); Eosinophils # 0.2 10*3/uL (0.0-0.87); Eosinophils % 2.6 % (0.00-10.9); Hemoglobin 12.7 GM/DL (14.0-18.0); Immature Granulocytes % 0.4 %; Immature Granulocytes Absolute 0.04 #; Lymphocytes # 1.4 10*3/uL (1.4-4.0); Lymphocytes % 15.2 % (21.2-54.2); Mean Corpuscular HGB Conc 31.8 GM/DL (32-36); Mean Corpuscular Hemoglobin 29 PG (27-34); Mean Corpuscular Volume 92.2 FL (87-102); Mean Platelet Volume 10.7 FL (9.6-12.0); Monocytes % 10.9 % (1.7-12.7); Neutrophils # 6.6 10*3/uL (1.4-7.4); Neutrophils % 70.5 % (38.7-73.9); Platelet Count 212 T/CUMM (130-400); Red Blood Count 4.34 MC/CUMM (3.8-5.5); Red Cell Distribution Width 12.1 % (9.3-17.3); White Blood Count 9.3 T/CUMM (4-12)
[2017-02-12 05:36] LABS: CKMB % 6.7 %
[2017-02-12 05:37] LABS: Troponin I Only 25.3 NG/ML (0.00-0.045)
[2017-02-12 05:47] LABS: Calcium 8.7 MG/DL (8.5-10.1); Magnesium 2.3 MG/DL (1.8-2.4); Potassium 4.8 MMOL/L (3.5-5.1)
--- NOTE | 2017-02-12 07:17 | Cardiology Progress Note ---
Cardiology - PN: Subj Interval history: Cardiology note Status post non-Q-wave DE Chronic hypertension with poor control Cardiac cath yesterday by Dr. Jorgensen showed 99% mid right coronary which was stented with a 4.0 x 18 mm Alpine drug-coated stent with mild circumflex disease and 50% mid LAD disease. LV gram not done to conserve dye. No pain. Telemetry shows sinus rhythm in the 50s and 60s Blood pressure still running high 180/90 Regular rhythm no murmur Clear lungs Abdomen soft Right groin soft and dry. No bruit or hematoma. Distal pulses 2+ symmetric. Lab data today Sodium 143 potassium 4.8 chloride 110 CO2 25 BUN 26 creatinine 2.80 which is stable Glucose 79 magnesium 2.3 Peak CPK 508 peak troponin 25.3 Impression Non-Q-wave inferior DE with mid RCA stent EF 55% by recent echo with LVH Chronic hypertension with poor control History of stroke 2013 Chronic renal failure creatinine 2.80 Active smoker History of noncompliance Plan Transfer to telemetry Optimize BP meds. Currently taking Coreg 6.25 mg twice daily, minoxidil 5 mg twice daily, Norvasc 10 mg daily Routine groin precautions discussed Aspirin 81 mg daily and Brilinta 90 mg twice daily Atorvastatin 20 mg daily BMP in a.m. Probable discharge in a.m. Exam (Progress Note) - Constitutional Vitals: Period Temp Pulse Resp BP Sys/Carrasco Pulse Ox Last 24 Hr 97.3 F-98.8 F 48-71 8-26 137-186/66-139 95-100 Result/EKG - Labs CBC & BMP: 02/12/17 03:23 02/12/17 03:23 Labs: Laboratory Results - last 24 hr 02/11/17 02/11/17 02/11/17 11:41 11:41 18:57 WBC RBC Hgb Hct MCV MCH MCHC RDW Plt Count MPV Neut % (Auto) Lymph % (Auto) [place] % (Auto) Eos % (Auto) Baso % (Auto) Neut # (Auto) Lymph # (Auto) [place] # (Auto) Eos # (Auto) Baso # (Auto) Immature Gran % Nucleated RBC % Immature Gran # Nucleated RBCs # Sodium Potassium Chloride Carbon Dioxide Anion Gap BUN Creatinine GFR Calculation BUN/Creatinine Ratio Glucose Calculated Osmolality Calcium Magnesium Total Creatine Kinase 199 D 187 CK-MB (CK-2) 7.9 H D 9.7 H CK and CKMB Interp 4.0 5.2 Troponin I 25.000 H 23.100 H Triglycerides 54 Cholesterol 183 LDL Cholesterol 126.0 VLDL Cholesterol 10.8 HDL Cholesterol 56 Heart Disease Risk Ratio 3.27 02/12/17 02/12/17 02/12/17 03:23 03:23 03:23 WBC 9.3 RBC 4.34 Hgb 12.7 L Hct 40.0 L MCV 92.2 MCH 29 MCHC 31.8 L RDW 12.1 Plt Count 212 MPV 10.7 Neut % (Auto) 70.5 Lymph % (Auto) 15.2 L [place] % (Auto) 10.9 Eos % (Auto) 2.6 Baso % (Auto) 0.4 Neut # (Auto) 6.6 Lymph # (Auto) 1.4 [place] # (Auto) 1.0 H Eos # (Auto) 0.2 Baso # (Auto) 0.0 Immature Gran % 0.4 Nucleated RBC % 0.0 Immature Gran # 0.04 Nucleated RBCs # 0.00 Sodium 143 Potassium 4.8 Chloride 110 H Carbon Dioxide 25 Anion Gap 12.8 BUN 26 H Creatinine 2.80 H GFR Calculation 34 BUN/Creatinine Ratio 9.00 Glucose 79 Calculated Osmolality 288.0 Calcium 8.7 Magnesium 2.3 Total Creatine Kinase 220 CK-MB (CK-2) 14.8 H D CK and CKMB Interp 6.7 Troponin I 25.300 H Triglycerides Cholesterol LDL Cholesterol VLDL Cholesterol HDL Cholesterol Heart Disease Risk Ratio Quality Measures - VTE Contraindication to Pharmacological VTE Prophylaxis: High Risk of Bleeding Specialty Discharge - Follow Up or Referrals
--- NOTE | 2017-02-12 07:30 | Physician Query Form ---
CLICK EDIT DOCUMENT TO SELECT QUERY ANSWER --> OK --> SIGN Gaye Tim RN, CCDS Certified Clinical Hog Trader W) [phone] (f) [phone] [email or web address] PROVIDERS: Make your selection(s) from the choices in EACH section by typing an "x" and enter comments in the comment section. Please use your independent medical judgment in providing your response. This request does not imply that any particular answer is desired or expected. CLINICAL INDICATORS: (Providers should not edit this section) The medical record indicates that the patient was admitted with Non STEMI, "Chronic renal failure creatinine 2.80" and GFR of 34#. Clarify which of the following most accurately represents the patient's renal status: Chronic Kidney Disease Stages Source: National Kidney Disease Foundation ( ) Stage I (eGFR > or = 90) ( ) Stage II (eGFR 60 - 89) ( ) Stage III (eGFR 30 - 59) ( ) Stage IV (eGFR 15 - 29) ( ) Stage V (eGFR < 15 or dialysis) COMMENTS: Use of terms such as suspected, likely, or probable (associated with a specific diagnosis that is being evaluated, monitored, or treated as if it exists) are acceptable and can be restated in the discharge summary if not ruled out. MTDD
--- NOTE | 2017-02-12 08:08 | EKG Report ---
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
[2017-02-12] MEDS: FUROSEMIDE 40 MG TABLET PO SCH (08:15)
[2017-02-12] MEDS: PANTOPRAZOLE 40 MG TABLET PO SCH (08:16)
[2017-02-12] MEDS: amLODIPine 10 MG TABLET PO SCH (08:16)
[2017-02-12] MEDS: TICAGRELOR 90 MG TABLET PO SCH ×2 (08:16→22:06)
[2017-02-12] MEDS: GABAPENTIN 100 MG CAPSULE PO SCH ×3 (08:16→22:06)
[2017-02-12] MEDS: ACETAMINOPHEN 325 MG TABLET PO SCH ×2 (08:16→22:06)
[2017-02-12] MEDS: traMADol 50 MG TABLET PO SCH ×2 (08:16→22:06)
[2017-02-12] MEDS: MINOXIDIL 2.5 MG TABLET PO SCH ×2 (08:16→22:05)
[2017-02-12] MEDS: tiZANidine 4 MG TABLET PO SCH ×3 (08:17→22:06)
[2017-02-12] MEDS: ATORVASTATIN 20 MG TABLET PO SCH (08:17)
[2017-02-12] MEDS: ASPIRIN CHEW 81 MG TABLET PO SCH (08:17)
[2017-02-12] MEDS: CARVEDILOL 12.5 MG TABLET PO SCH ×2 (08:17→22:06)
--- NOTE | 2017-02-12 15:56 | Discharge Summary ---
<Sunday Han - Last Filed: 02/13/17 11:11> Hospital Course - Hospital Course Hospital Course: Cardiology addendum Patient examined and chart reviewed. Right groin soft and dry. No bruit or hematoma. Distal pulses 2+ symmetric. Patient has chronic renal failure. Potassium 3.8, sodium 140, BUN 35 creatinine 3.20 today. Blood pressure 156/86 in the right arm by me Patient is not a candidate for CRAINE or ARB due to chronic renal failure Plan Home today. local care with Dr. Jian Quiñonez in [place]. He will call his office to schedule office visit and recheck BMP in 1 week. I stressed the importance of taking his blood pressure medications daily and not missing doses. Patient had a prior stroke and has progressive renal failure. 10 mg amlodipine daily Minoxidil 5 mg twice daily Carvedilol 12.5 mg twice daily Lasix 40 mg daily Hydralazine 50 mg 3 times daily Specialty Discharge - Follow Up or Referrals Follow up with: Moises Jorgensen MD [Physician] - (1-2 weeks. MG KRISSY, CBC) Discharge Plan - Discharge Data Disposition: Disch To Home/Self Care - Discharge Medications New Atorvastatin [Lipitor] 20 mg PO BEDTIME #30 tablet Carvedilol [Coreg] 12.5 mg PO BID #60 tablet Furosemide Tab [Lasix Tab] 40 mg PO DAILY #30 tablet Ticagrelor [Brilinta] 90 mg PO BID #60 tablet hydrALAZINE TAB [Apresoline Tab] 50 mg PO TID #90 tablet Aspirin Chew Tab 81 mg PO DAILY #30 tablet Minoxidil [Loniten] 5 mg PO BID #60 tablet Continue Hydrocodone/Acetaminophen [[place] 10-325 Tablet] 1 tablet PO Q6HR PRN PRN Reason: Pain Amlodipine Besylate 10 mg PO DAILY Tizanidine HCl [Zanaflex] 2 mg PO TID Discontinued hydroCHLOROthiazide [Hydrochlorothiazide] 25 mg PO DAILY Chlorthalidone 25 mg PO DAILY - Follow Up or Referral Follow Up: Moises Jorgensen MD [Physician] - (1-2 weeks. MG KRISSY, CBC) - Forms/Instructions Instructions: Myocardial Infarction (GEN), Left Heart Catheterization (DC), Cigarette Smoking and Your Health (GEN), How to Stop Smoking, Inventory Control Planner ( GEN), Coronary Intravascular Stent Placement, Inventory Control Planner (GEN) Exam - Constitutional Vitals: Period Temp Pulse Resp BP Sys/Carrasco Pulse Ox Last 24 Hr 97 F-99.0 F 53-69 13-27 144-194/72-98 97-99 Discharge Results Procedures and tests throughout hospitalization: Pending Orders 02/14/17 04:00 Basic Metabolic Panel IN AM Labs on day of discharge: Labs from last 24 hours 02/13/17 02/13/17 02:26 02:26 WBC 7.6 RBC 4.32 Hgb 12.5 L Hct 37.3 L MCV 86.3 L MCH 29 MCHC 33.5 RDW 12.0 Plt Count 200 MPV 10.4 Neut % (Auto) 68.6 Lymph % (Auto) 17.8 L [place] % (Auto) 9.9 Eos % (Auto) 3.0 Baso % (Auto) 0.4 Neut # (Auto) 5.2 Lymph # (Auto) 1.4 [place] # (Auto) 0.8 Eos # (Auto) 0.2 Baso # (Auto) 0.0 Immature Gran % 0.3 Nucleated RBC % 0.0 Immature Gran # 0.02 Nucleated RBCs # 0.00 Sodium 140 Potassium 3.8 Chloride 106 Carbon Dioxide 24 Anion Gap 13.8 BUN 35 H Creatinine 3.20 H GFR Calculation 29 BUN/Creatinine Ratio 10.00 Glucose 89 Calculated Osmolality 285.4 Calcium 8.6 Magnesium 2.2 DS: Provider Date of admission: 02/10/17 00:56 Primary care physician: . No PCP Attending physician on admission: Moises Jorgensen MD Consults: 02/11/17 07:07 Consult to Cardiac Rehabilitation [CONS] Routine Reason for Cardiac Rehabilitation: Other 02/11/17 11:16 Consult to Cardiac Rehabilitation [CONS] Routine Reason for Cardiac Rehabilitation: Risk Factor Modification Home Exercise Program/Claudio Appt Out Pt Cardiac Rehab Discharging clinician: Sunday Han MD <Vee Johnson - Last Filed: 02/13/17 11:33> Hospital Course - Hospital Course Hospital Course: CARDIOLGIST: DR. JORGENSEN PCP: DR. JIAN MCDANIEL, MS Mr. Gregorio, 56-year-old male, was admitted February 10, 2017 for complaints of chest discomfort. His troponins were elevated overnight and he was taken to the cardiac catheterization lab where Dr. Jorgensen performed heart catheterization February 11, 2017 with the following impression noted: Findings: Impression: Significant disease in the mid right coronary-95%, GYPSY grade III flow --mid vessel, large vessel, dominant Moderate disease in the proximal and mid LAD-50% lesions Mild disease in circumflex No LV gram was done-to conserve contrast exposure because of his renal insufficiency--he had an echocardiogram done post SD which showed normal LVEF and 3+ LVH LVEDP is high at 34 mmHg. Aggrastat bolus and infusion-for ACS Status post successful stenting of the mid right coronary artery-4.0 x 18 mm Zions Alpine, after pre-dilating with a 3.5 x 15 mm NC apex Angiogram right femoral artery Angio-Seal of the right femoral artery-successful Plan/recommendations: The patient will have risk factors optimized. The patient did have a non-STEMI, involved the right coronary. He has had intervention. I have emphasized to him to the patient importance of taking his medication, particularly the aspirin and the Brilinta. In the past, at times is run out of his antihypertensive medicines and has not taken them. The patient will be on antiplatelet medications to include aspirin indefinitely and Brilinta for at least a year. Patient has known chronic renal insufficiency, stage IIIB Moderate. Patient was hydrated during hospital stay in order to preserve kidney function as much as possible. Patient was admitted with creatinine of 2.8, rachel to 3.2 during hospital stay. Patient remained hypertensive during hospital stay and medications were adjusted accordingly. He is NOT being discharged on CARINE or ARB due to fear of worsening renal insufficiency, (Stage III) Having felt the patient met maximal medical therapy, patient is being discharged home in stable condition. Patient is being given a follow-up appoint with Dr. Jorgensen approximately 1-2 weeks. At that visit the following labs were obtained: BMP, magnesium, CBC. Patient's primary care provider is Dr. Jian Quiñonez and we will arrange for him to have an appointment within a week, labs to be drawn Saturday, February 18, 2017 to include BMP, Mg. I am also making an outpatient referral to nephrology as patient has chronic renal insufficiency and will benefit from routine follow-up. Patient's blood pressure was elevated prior to receiving morning medications. Meds adjusted this morning and blood pressure under better control at discharge. He is being given a Brilinta Rx card at discharge. Discharge medications include: Aspirin 81 mg orally daily Atorvastatin 20 mg orally each evening Carvedilol 12.5 mg orally twice daily Lasix 40 mg orally daily Minoxidil 5 mg orally twice daily Brilinta 90 mg orally twice daily without fail. He is being given a Brilinta prescription card Amlodipine 10 mg orally daily Hydralazine 50 mg orally 3 times daily Patient was given handwritten prescriptions for above listed meds as there was no pharmacy listed - Time spent with patient Time with patient DS: Greater than 30 minutes Time spent discussing smoking cessation with patient: 3 to 10 minutes Diagnosis - Discharge Diagnosis (1) CAD (coronary artery disease) Status: Chronic (2) Chronic renal insufficiency, stage III (moderate) Status: Chronic (3) Non-STEMI (non-ST elevated myocardial infarction) Status: Resolved (4) Chest pain Status: Resolved (5) Hypertension Status: Chronic (6) Smoker Status: Chronic Discharge Plan - Discharge Data Condition at Discharge: Stable Discharge Diet: heart healthy Activity: other (Post cath expectations) Hygiene: no restrictions Weight Bearing at Discharge: other (Post cath expectations) Driving: other (Post cath expectations) Contact your physician if you experience:: fever over 101, Difficulty voiding, Redness or swelling, Nausea/Vomiting, Shortness of breath, Bleeding, pain uncontrolled by pain medications - Forms/Instructions Additional Discharge Instructions: Please arrange for patient to have BMP, Mg drawn with his PCP Dr. Jian Quiñonez SATURDAY, FEBRUARY 18, 2017. 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 Exam - Constitutional Exam: General: [Appears well with no apparent distress.] [Pleasant and cooperative. ] [Appears comfortable.] HEENT: [PERRL, normocephalic, atraumatic. Mucous membranes moist. No jaundice noted. Conjunctiva moist and clear, sclerae anicteric] Neck: No JVD/HJR, no thyromegaly or lymphadenopathy noted. No carotid bruit appreciated Cardiac: [Regular rate and rhythm.] [No murmur rub or gallop.] Lungs: [Clear to auscultation without accessory muscle use to assist the respiratory pattern.] Not requiring oxygen Abdomen: Soft, bowel sounds normoactive. Nontender and nondistended. No abdominal bruit or thrill noted. No masses noted. Musculoskeletal: No fluid collection. Decreased range of motion is noted. Extremities: Right groin soft, free of hematoma or bruit. No clubbing, cyanosis noted. [ No edema noted.] Upper extremity pulses 2+. Lower extremity pulses 2+. Capillary refill less than 3 seconds. Skin: No unusual lesions or rashes. No skin breakdown appreciated. Neuro: Awake, alert and oriented 3. Moves all extremities well without hemiparesis or paralysis. No essential tremor is appreciated. Discharge Results - Imaging and Cardiology Cardiology Procedure: report reviewed by Procedure: Chest x-ray: report reviewed by DS: Provider Expected date of discharge: 02/13/17
[2017-02-12] MEDS: hydrALAZINE 25 MG TABLET PO SCH ×2 (16:57→22:06)
[2017-02-13 02:43] LABS: Basophils % 0.4 % (0.0-0.8); Eosinophils # 0.2 10*3/uL (0.0-0.87); Hematocrit 37.3 VOL% (42.0-52.0); Hemoglobin 12.5 GM/DL (14.0-18.0); Immature Granulocytes % 0.3 %; Immature Granulocytes Absolute 0.02 #; Lymphocytes # 1.4 10*3/uL (1.4-4.0); Lymphocytes % 17.8 % (21.2-54.2); Mean Corpuscular HGB Conc 33.5 GM/DL (32-36); Mean Corpuscular Hemoglobin 29 PG (27-34); Mean Corpuscular Volume 86.3 FL (87-102); Mean Platelet Volume 10.4 FL (9.6-12.0); Monocytes # 0.8 10*3/uL (0.11-0.8); Monocytes % 9.9 % (1.7-12.7); Neutrophils # 5.2 10*3/uL (1.4-7.4); Neutrophils % 68.6 % (38.7-73.9); Platelet Count 200 T/CUMM (130-400); Red Blood Count 4.32 MC/CUMM (3.8-5.5); White Blood Count 7.6 T/CUMM (4-12)
[2017-02-13 03:14] LABS: Calcium 8.6 MG/DL (8.5-10.1); Magnesium 2.2 MG/DL (1.8-2.4); Osmolality,Calculated 285.4 MOS/KG (273-304); Potassium 3.8 MMOL/L (3.5-5.1)
[2017-02-13] MEDS ORDERED: hydrALAZINE 25 MG TABLET PO ONE (09:30)
[2017-02-13] MEDS: MINOXIDIL 2.5 MG TABLET PO SCH (09:34)
[2017-02-13] MEDS: ATORVASTATIN 20 MG TABLET PO SCH (09:34)
[2017-02-13] MEDS: GABAPENTIN 100 MG CAPSULE PO SCH (09:34)
[2017-02-13] MEDS: PANTOPRAZOLE 40 MG TABLET PO SCH (09:35)
[2017-02-13] MEDS: FUROSEMIDE 40 MG TABLET PO SCH (09:35)
[2017-02-13] MEDS: ASPIRIN CHEW 81 MG TABLET PO SCH (09:35)
[2017-02-13] MEDS: CARVEDILOL 12.5 MG TABLET PO SCH (09:35)
[2017-02-13] MEDS: tiZANidine 4 MG TABLET PO SCH (09:35)
[2017-02-13] MEDS: amLODIPine 10 MG TABLET PO SCH (09:35)
[2017-02-13] MEDS: ACETAMINOPHEN 325 MG TABLET PO SCH (09:35)
[2017-02-13] MEDS: traMADol 50 MG TABLET PO SCH (09:36)
[2017-02-13] MEDS: TICAGRELOR 90 MG TABLET PO SCH (09:36)
[2017-02-13] MEDS: hydrALAZINE 25 MG TABLET PO SCH (09:43)
[2017-02-13 11:19] VITALS: BP 153/85
== END 2017-02-13 14:00 | disposition home or self-care (01) | DRG 174 ==
LOC: EDUNIT# → N.ED 23:40 → N.EDINP 02-10 00:56 → N.TELES 02-10 01:13 → N.ICU 02-10 01:13 → N.TELES 02-12 17:17
PROVIDERS: ADMIT Internal Medicine Cardiovascular Disease; ATTEND Internal Medicine Cardiovascular Disease
PROC: CLCCHCL (ICD-10-PCS; 2017-02-11 10:45)

== ENCOUNTER 2017-02-15 21:22 | Inpatient (IN) ==
[2017-02-15] MEDS ORDERED: ALBUTEROL/IPRATROPIUM 3 ML NEB RESP TX STA (21:42)
[2017-02-15] MEDS ORDERED: LEVOFLOXACIN INJ 750 MG in PREMIX 1 EACH IV STA (21:42)
[2017-02-15] MEDS ORDERED: NITROGLYCERIN 2% OINT 1 INCH/GM PACK TOP STA (21:42)
[2017-02-15] MEDS ORDERED: methylPREDNISolone SOD SUC 125 MG/2 ML VIAL IV STA (21:42)
--- NOTE | 2017-02-15 21:50 | Emergency Department Note ---
Arrival - Arrival Chief Complaint: Chest Pain Stated Complaint: CP,FEVER, CHILLS ED Nursing Triage Note: TRANSFERRED VIA [facility] WITH C/O CHEST PAIN, CHILLS AND GENERALIZED DISCOMFORT ALL DAY. PATIENT HAD STENTS X [address] ON [address] JORGENSEN. NITRO SUB 0.4 ADMIN ENROUTE, PT STATES SOME RELIEF OF CP. Mode of Arrival: Ambulatory Limitations: No Limitations Source: Patient Time Seen by Provider: 02/15/17 21:41 - History of Present Illness HPI Narrative: This 56-year-old black male presents with approximately 12 hours of chills, fever 201, cough, shortness of breath, chest pain, and recent discharge 3 days ago with diagnoses of both non-STEMI OR and chronic renal failure. The patient states he does not have any nausea, vomiting, or diaphoresis associated with this. He does state the chest pain is similar to his anginal pain he suffered with several days ago when he was admitted. Currently he is intermittently shivering but afebrile currently. Onset (ago): hour(s) (Patient presents 12 hours post onset of symptoms) Consistency: constant Allergies/Adverse Reactions: Allergies Allergy/AdvReac Type Severity Reaction Status Date / Time No Known Allergies Allergy Unverified 02/09/17 23:53 Home Medications: Home Medications Medication Instructions Recorded Confirmed Type Amlodipine Besylate 10 mg PO DAILY 02/10/17 02/15/17 History Hydrocodone/Acetaminophen [[place] 1 tablet PO Q6HR PRN 02/10/17 02/15/17 History 10-325 Tablet] Tizanidine HCl [Zanaflex] 2 mg PO TID 02/10/17 02/15/17 History Aspirin Chew Tab 81 mg PO DAILY #30 tablet 02/13/17 02/15/17 Rx Atorvastatin [Lipitor] 20 mg PO BEDTIME #30 tablet 02/13/17 02/15/17 Rx Carvedilol [Coreg] 12.5 mg PO BID #60 tablet 02/13/17 02/15/17 Rx Furosemide Tab [Lasix Tab] 40 mg PO DAILY #30 tablet 02/13/17 02/15/17 Rx Minoxidil [Loniten] 5 mg PO BID #60 tablet 02/13/17 02/15/17 Rx Ticagrelor [Brilinta] 90 mg PO BID #60 tablet 02/13/17 02/15/17 Rx hydrALAZINE TAB [Apresoline Tab] 50 mg PO TID #90 tablet 02/13/17 02/15/17 Rx Review of System - Review of System 12 point system: reviewed and no additional remarkable complaints except as stated - Review of System Constitutional: Present: as per HPI Head/Ears/Nose/Throat: Present: see HPI Respiratory: Present: as per HPI Cardiovascular: Present: as per HPI Gastrointestinal: Present: as per HPI Medical,Surgical,& Family Hx - Medical History Cardio: History of: Hypertension, [place] Neurology: History of: Cerebrovascular Accident (3 YEARS AGO, RIGHT SIDE DEFICIETS) Endocrine: History of: Dyslipidemia - Surgical History Cardiac Surgeries: Sugical HX of: Cardiac Catheterization - Family History Family History: Reports;: Family Cancer (Father), Family Diabetes (Mother), Family Hypertension (Sister) - Social History Smoking Status: Current every day smoker Frequency of Alcohol Use: Occasionally Type of Drug Use: None Exam Physical Examination: GENERAL: Well developed, well nourished black male in no acute distress. HEENT: Normocephalic. No trauma. Moist mucous membranes. EOMI. PERRLA. ENT NML NECK: Supple. No adenopathy. CARDIAC: Regular. No murmurs. Heart rate 74 CHEST: Scattered expiratory rhonchi. No respiratory distress. O2 sat 100% ABDOMEN: Soft. Nontender. Active bowel sounds. EXTREMITIES: No trauma. Normal ROM. No pedal edema. SKIN: No diaphoresis. No rash. NEURO: Alert. Oriented 3. 4 out of 5 right-sided strength compared to left. No focal deficits. Vital Signs: Vital Signs Temperature 98.0 F 02/15/17 21:30 Pulse Rate 70 02/15/17 22:01 Respiratory Rate 20 02/15/17 22:01 Blood Pressure 94/65 02/15/17 21:30 O2 Sat by Pulse Oximetry 100 02/15/17 22:01 Course - Reevaluation(s) Reevaluation #1: Discussed with patient the need for hospitalization to rule out the possibility of recurrent ischemia - Consultations Consultation #1: Discussed with Dr. perkins who will admit for Dr. Jorgensen for further evaluation treatment. Results - Labs CBC & BMP: 02/15/17 21:40 02/15/17 21:40 - Impressions EKG sinus at 71 with right axis deviation and left ventricular hypertrophy with significant strain pattern - Diagnostic Findings Procedure: Chest x-ray: image reviewed by me, report reviewed by me ( Cardiomegaly otherwise no acute findings per) Disposition Clinical Impression: Chest pain post stenting, Recent non-STEMI, Bronchitis Case discussed with: patient, patient's family Condition: Guarded Time of Disposition: 22:50
[2017-02-15] MEDS ORDERED: methylPREDNISolone SOD SUC 125 MG/2 ML VIAL ONE (21:55)
[2017-02-15] MEDS ORDERED: NITROGLYCERIN 2% OINT 1 INCH/GM PACK TOP ONE (21:55)
[2017-02-15] MEDS ORDERED: LEVOFLOXACIN INJ 150 ML IV ONE (21:55)
[2017-02-15 22:00] LABS: Basophils % 0.3 % (0.0-0.8); Eosinophils # 0.2 10*3/uL (0.0-0.87); Eosinophils % 2.3 % (0.00-10.9); Hematocrit 40.7 VOL% (42.0-52.0); Hemoglobin 13.7 GM/DL (14.0-18.0); Immature Granulocytes % 0.2 %; Immature Granulocytes Absolute 0.02 #; Mean Corpuscular HGB Conc 33.7 GM/DL (32-36); Mean Corpuscular Hemoglobin 29 PG (27-34); Mean Platelet Volume 10.4 FL (9.6-12.0); Monocytes % 10.5 % (1.7-12.7); Neutrophils # 6.4 10*3/uL (1.4-7.4); Neutrophils % 65.7 % (38.7-73.9); Platelet Count 267 T/CUMM (130-400); Red Blood Count 4.73 MC/CUMM (3.8-5.5); Red Cell Distribution Width 11.9 % (9.3-17.3); White Blood Count 9.7 T/CUMM (4-12)
--- NOTE | 2017-02-15 22:05 | XRay Report ---
Portable chest Date: 02/15/2017 Clinical history: Shortness of breath Comparison: 02/10/2017 Technique: Portable AP sitting chest Findings: The heart is minimally enlarged with left ventricular prominence and uncoiling of the aorta. The lungs are stable in appearance with minimal chronic scarring. Stable mediastinum with degenerative changes. Impression: No acute cardiopulmonary pathology identified. The heart remains minimally enlarged with left ventricular prominence and uncoiling of the aorta which can be seen with hypertensive cardiovascular disease. PROCEDURE INTERPRETED AT [facility] DEPARTMENT OF RADIOLOGY Final Report Signed by: Dr. Naomi Funes
[2017-02-15 22:11] LABS: PT Patient Result 10.2 SECS
[2017-02-15 22:21] LABS: Albumin 4.2 G/DL (3.4-5.0); Bilirubin,Total 0.9 MG/DL (0.2-1.0); CKMB % 4.5 %; Calcium 9.6 MG/DL (8.5-10.1); Osmolality,Calculated 287.5 MOS/KG (273-304); Potassium 3.5 MMOL/L (3.5-5.1); Total Protein 7.8 G/DL (6.4-8.3)
[2017-02-15] MEDS ORDERED: METOPROLOL TARTRATE 50 MG TABLET PO STA (22:26)
[2017-02-15] MEDS ORDERED: METOPROLOL TARTRATE 50 MG TABLET ONE (22:28)
[2017-02-15] MEDS ORDERED: ATORVASTATIN 40 MG TABLET PO STA (22:38)
[2017-02-15] MEDS ORDERED: ONDANSETRON 4 MG/2 ML VIAL IV PRN (22:38)
[2017-02-15] MEDS ORDERED: ASPIRIN CHEW 81 MG TABLET PO STA (22:38)
[2017-02-15] MEDS ORDERED: ATORVASTATIN 40 MG TABLET ONE (22:52)
[2017-02-15] MEDS ORDERED: ASPIRIN CHEW 81 MG TABLET PO ONE (22:52)
[2017-02-16] MEDS: NITROGLYCERIN 2% OINT 1 INCH/GM PACK TOP SCH ×5 (00:23→18:27)
[2017-02-16] MEDS: ALBUTEROL/IPRATROPIUM 3 ML NEB RESP TX SCH ×4 (00:28→19:11)
[2017-02-16 04:43] LABS: Basophils % 0.1 % (0.0-0.8); Immature Granulocytes % 0.5 %; Immature Granulocytes Absolute 0.04 #; Lymphocytes # 0.5 10*3/uL (1.4-4.0); Lymphocytes % 5.8 % (21.2-54.2); Mean Corpuscular HGB Conc 33.3 GM/DL (32-36); Mean Corpuscular Hemoglobin 29 PG (27-34); Mean Corpuscular Volume 87.2 FL (87-102); Mean Platelet Volume 9.9 FL (9.6-12.0); Monocytes # 0.1 10*3/uL (0.11-0.8); Monocytes % 0.9 % (1.7-12.7); Neutrophils # 8.2 10*3/uL (1.4-7.4); Neutrophils % 92.7 % (38.7-73.9); Platelet Count 243 T/CUMM (130-400); Red Blood Count 4.47 MC/CUMM (3.8-5.5); Red Cell Distribution Width 11.9 % (9.3-17.3); White Blood Count 8.8 T/CUMM (4-12)
[2017-02-16 05:19] LABS: CKMB % 5.2 %; Calcium 9.2 MG/DL (8.5-10.1)
[2017-02-16 05:25] LABS: Troponin I Only 11.4 NG/ML (0.00-0.045)
[2017-02-16 05:59] LABS: Atypical Lymphocytes Few; Hypochromasia 1+; Lymphocytes 7 % (20-55); Platelet Estimate Adequate; Segmented Neutrophils 90 % (50-85); Total Cells Counted 100
[2017-02-16] MEDS: amLODIPine 10 MG TABLET PO SCH (09:10)
[2017-02-16] MEDS: MINOXIDIL 2.5 MG TABLET PO SCH ×2 (09:10→22:27)
[2017-02-16] MEDS: tiZANidine 4 MG TABLET PO SCH ×3 (09:10→22:27)
[2017-02-16] MEDS: PANTOPRAZOLE 40 MG TABLET PO SCH (09:10)
[2017-02-16] MEDS: TICAGRELOR 90 MG TABLET PO SCH ×2 (09:10→22:28)
[2017-02-16] MEDS: CARVEDILOL 12.5 MG TABLET PO SCH ×2 (09:11→22:28)
--- NOTE | 2017-02-16 09:26 | EKG Report ---
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
--- NOTE | 2017-02-16 10:16 | EKG Report ---
Stationary ECG Study 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
--- NOTE | 2017-02-16 13:45 | Cardiology History & Physical ---
History of Present Illness History of present illness: Cardiology history and physical 56-year-old man admitted with shortness of breath cough and atypical chest pain and elevated blood pressure. The patient was just discharged February 12, 2017. He is status post non-Q-wave infarction with mid RCA stent April 12, [address] Jorgensen. A 4.0 x 18 mm Zions drug-coated stent was placed mid right coronary with an excellent result. The LAD had a 50% mid stenosis and the circumflex had mild disease only. LVEDP was elevated 34. LV gram was not done to conserve dye. His echo Doppler showed normal ventricular function with moderate concentric LVH mildly dilated atrium and mild TR. chest x-ray shows mild cardiomegaly with an unfolded aorta but no obvious infiltrate or effusion. EKG shows sinus rhythm LVH with strain pattern unchanged from before. This patient has chronic renal failure. On discharge January 12, 2017 BUN was 35 creatinine 3.20 potassium 3.8. According to Dr. Jorgensen's admission note on February 10, he ran out of his BP medications. On my discharge on February 12, 2017, he was sent home on hydralazine but did not fill the prescription. I di and atorvastatin 20 mg daily. Scussed today with the patient and with his brother Kurtis and his [id number] Janina the importance of taking his blood pressure medications daily and not missing doses. This patient is clearly noncompliant and indifferent about his medical condition and ongoing medical problems. His 2 years ago and things and have never been the same for him. The patient had a stroke in 2013. He continues to smoke 1/2-1 pack of cigarettes daily. He does not drink any alcohol. No history of peptic ulcer disease. Medications on discharge included hydration milligrams to milligrams, carvedilol 12.5 mg twice daily, minoxidil 5 mg twice daily and amlodipine 10 mg daily. In addition, he was struck to take aspirin 81 mg daily and Brilinta 90 mg twice daily Blood pressure is 174/90. Pulse is 78 and regular aspirations 18 bilateral arcus. The back of breath noted. Flat neck veins. No carotid bruit. Decreased breath sounds but clear. Regular rhythm. No murmur or gallop. Abdomen obese soft benign. Femoral pulses are 2+ right groin soft and dry no bruit or hematoma distal pulses 2+ symmetric. Lab data today white count 9.7 hemoglobin 13.7 hematocrit 40.7 platelet count 267 Sodium 139 potassium 3.5 chloride 103 CO2 22 BUN 43 creatinine 3.70 glucose 91 Impression Bronchitis Atypical chest pain Accelerated hypertension due to noncompliance with medication Status post RCA stent February 10, 2011 with patent circumflex, 50% mid LAD and EDP 34 Recent echo showed normal LV function with moderate LVH Status post stroke 2014 Tobacco abuse Chronic renal failure which has progressed Noncompliance of medications Plan Admit to telemetry [facility] Optimize BP meds Recheck BMP in a.m. I had a long talk with the patient and his brother Kurtis and with his sister- in-law Janina. This patient has a long history of noncompliance and is indifferent To his multiple ongoing medical problems. Every effort has been made to stress the importance of taking his medications daily and not missing doses and not smoking, and following up regularly with his physicians. He is followed by Dr. Omero Quiñonez in [place] and the plan is to get a renal consult in [place] when he is released. Home Medications Medication Instructions Recorded Confirmed Type Amlodipine Besylate 10 mg PO DAILY 02/10/17 02/15/17 History Hydrocodone/Acetaminophen [[place] 1 tablet PO Q6HR PRN 02/10/17 02/15/17 History 10-325 Tablet] Tizanidine HCl [Zanaflex] 2 mg PO TID 02/10/17 02/15/17 History Aspirin Chew Tab 81 mg PO DAILY #30 tablet 02/13/17 02/15/17 Rx Atorvastatin [Lipitor] 20 mg PO BEDTIME #30 tablet 02/13/17 02/15/17 Rx Carvedilol [Coreg] 12.5 mg PO BID #60 tablet 02/13/17 02/15/17 Rx Furosemide Tab [Lasix Tab] 40 mg PO DAILY #30 tablet 02/13/17 02/15/17 Rx Minoxidil [Loniten] 5 mg PO BID #60 tablet 02/13/17 02/15/17 Rx Ticagrelor [Brilinta] 90 mg PO BID #60 tablet 02/13/17 02/15/17 Rx hydrALAZINE TAB [Apresoline Tab] 50 mg PO TID #90 tablet 02/13/17 02/15/17 Rx Allergies Allergy/AdvReac Type Severity Reaction Status Date / Time No Known Allergies Allergy Unverified 02/09/17 23:53 Medical,Surgical,& Family Hx - Medical History Cardio: History of: Hypertension, [place] Neurology: History of: Cerebrovascular Accident (3 YEARS AGO, RIGHT SIDE DEFICIETS) Endocrine: History of: Dyslipidemia - Surgical History Cardiac Surgeries: Sugical HX of: Cardiac Catheterization - Family History Family History: Reports;: Family Cancer (Father), Family Diabetes (Mother), Family Hypertension (Sister) - Social History Smoking Status: Current every day smoker Frequency of Alcohol Use: Occasionally Type of Drug Use: None Cardiology Physical Exam - Constitutional Vitals: Vital Signs Temp Pulse Resp BP Pulse Ox 98.8 F 65 20 129/67 98 02/16/17 12:00 02/16/17 12:00 02/16/17 12:00 02/16/17 12:00 02/16/17 12:00 Intake and Output 02/15/17 02/16/17 02/16/17 23:59 07:59 15:59 Intake Total 150 / 150 100 / 100 Output Total 300 / 300 Balance 150 / 150 -200 / -200 Intake: IV 150 / 150 Levaquin Inj 750 mg In 150 / 150 Premix 1 Each @ 100 mls/ hr IV 1X ED STA Rx#: [id number] Oral 100 / 100 Output: Urine 300 / 300 Other: Weight 88.451 kg Result/EKG - Labs CBC & BMP: 02/16/17 04:37 02/16/17 04:37 Labs: Laboratory Results - last 24 hr 02/16/17 02/16/17 04:37 04:37 WBC 8.8 RBC 4.47 Hgb 13.0 L Hct 39.0 L MCV 87.2 MCH 29 MCHC 33.3 RDW 11.9 Plt Count 243 MPV 9.9 Neut % (Auto) 92.7 H Lymph % (Auto) 5.8 L [place] % (Auto) 0.9 L Eos % (Auto) 0.0 Baso % (Auto) 0.1 Neut # (Auto) 8.2 H Lymph # (Auto) 0.5 L [place] # (Auto) 0.1 L Eos # (Auto) 0.0 Baso # (Auto) 0.0 Total Counted 100 Immature Gran % 0.5 Nucleated RBC % 0.0 Immature Gran # 0.04 Segmented Neutrophils 90 H Lymphocytes 7 L Monocytes 3 Nucleated RBCs # 0.00 Atypical Lymphocytes Few Platelet Estimate Adequate Hypochromasia 1+ Sodium 136 Potassium 4.0 Chloride 103 Carbon Dioxide 24 Anion Gap 13.0 BUN 44 H Creatinine 3.90 H GFR Calculation 22 BUN/Creatinine Ratio 11.00 Glucose 152 H Calculated Osmolality 285.0 Calcium 9.2 Total Creatine Kinase 151 CK-MB (CK-2) 7.8 H CK and CKMB Interp 5.2 Troponin I 11.400 H
--- NOTE | 2017-02-16 13:58 | Cardiology Progress Note ---
Cardiology - PN: Subj Interval history: Cardiology note No pain. Nonproductive cough. No fever or chills. Blood pressure 180/86 Regular rhythm no murmur Decreased breath sounds but fairly clear Abdomen benign No leg edema Lab data today Sodium 136 potassium 4.0 chloride 103 CO2 24 BUN 44 creatinine 3.90 Glucose 72 BNP 197 Troponin level is down to 11.0. Peak troponin post infarction was 30 on 2016. Plan BMP in a.m. Increase hydralazine 100 mg 3 times daily Levaquin Nebs Exam (Progress Note) - Constitutional Vitals: Period Temp Pulse Resp BP Sys/[place] Pulse Ox Last 24 Hr 97.8 F-98.8 F 56-85 16-25 129-183/53-104 95-100 Result/EKG - Labs CBC & BMP: 02/16/17 04:37 02/16/17 04:37 Labs: Laboratory Results - last 24 hr 02/16/17 02/16/17 04:37 04:37 WBC 8.8 RBC 4.47 Hgb 13.0 L Hct 39.0 L MCV 87.2 MCH 29 MCHC 33.3 RDW 11.9 Plt Count 243 MPV 9.9 Neut % (Auto) 92.7 H Lymph % (Auto) 5.8 L [place] % (Auto) 0.9 L Eos % (Auto) 0.0 Baso % (Auto) 0.1 Neut # (Auto) 8.2 H Lymph # (Auto) 0.5 L [place] # (Auto) 0.1 L Eos # (Auto) 0.0 Baso # (Auto) 0.0 Total Counted 100 Immature Gran % 0.5 Nucleated RBC % 0.0 Immature Gran # 0.04 Segmented Neutrophils 90 H Lymphocytes 7 L Monocytes 3 Nucleated RBCs # 0.00 Atypical Lymphocytes Few Platelet Estimate Adequate Hypochromasia 1+ Sodium 136 Potassium 4.0 Chloride 103 Carbon Dioxide 24 Anion Gap 13.0 BUN 44 H Creatinine 3.90 H GFR Calculation 22 BUN/Creatinine Ratio 11.00 Glucose 152 H Calculated Osmolality 285.0 Calcium 9.2 Total Creatine Kinase 151 CK-MB (CK-2) 7.8 H CK and CKMB Interp 5.2 Troponin I 11.400 H
[2017-02-16] MEDS ORDERED: NITROGLYCERIN SL 0.4 MG TABLET SL ONE ×2 (18:11→18:12)
[2017-02-16] MEDS: LEVOFLOXACIN INJ 750 MG in PREMIX 1 EACH IV SCH (22:37)
[2017-02-17] MEDS: ALBUTEROL/IPRATROPIUM 3 ML NEB RESP TX SCH ×4 (00:04→20:46)
[2017-02-17] MEDS: NITROGLYCERIN 2% OINT 1 INCH/GM PACK TOP SCH ×3 (00:15→09:43)
[2017-02-17 06:09] LABS: Osmolality,Calculated 291.7 MOS/KG (273-304); Potassium 3.7 MMOL/L (3.5-5.1)
[2017-02-17] MEDS: TICAGRELOR 90 MG TABLET PO SCH ×2 (09:00→22:25)
[2017-02-17] MEDS: amLODIPine 10 MG TABLET PO SCH (09:00)
[2017-02-17] MEDS: PANTOPRAZOLE 40 MG TABLET PO SCH (09:01)
[2017-02-17] MEDS: CARVEDILOL 12.5 MG TABLET PO SCH (09:01)
[2017-02-17] MEDS: tiZANidine 4 MG TABLET PO SCH ×3 (09:01→22:24)
[2017-02-17] MEDS: MINOXIDIL 2.5 MG TABLET PO SCH ×2 (09:05→22:24)
[2017-02-17] MEDS ORDERED: MAGNESIUM HYDROXIDE SUSP 30 ML UDCUP PO ONE (11:12)
[2017-02-17] MEDS ORDERED: MAGNESIUM HYDROXIDE SUSP 30 ML UDCUP PO PRN (11:33)
--- NOTE | 2017-02-17 11:34 | Cardiology Progress Note ---
Cardiology - PN: Subj Interval history: Cardiology note 56-year-old man status post non-Q-wave inferior IA with mid RCA stent February 10, [address] Jorgensen. Circumflex was patent and LAD had a 50% mid stenosis with EDP of 34. Echo showed normal LV function with moderate LVH and diastolic dysfunction. Patient also has chronic renal failure. Baseline creatinine was 2.8 prior to his heart cath. 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 Omero Quiñonez in [place]. The patient was readmitted on February 16 with elevated blood pressure cough weakness and atypical chest pain. EKG shows sinus rhythm with LVH with strain pattern. Troponin level was continuing to trend downward. Today his blood pressure is still high. 174/90 in the left arm by me. No chest pain. Telemetry has been benign. Heart rate in the 70s. Without ectopy O2 sat 90% on 2 L Lab data today Sodium 138 potassium 3.7 chloride 102 CO2 22 BUN 58 creatinine 4.60 Impression Status post small non-Q-wave inferior IA with mid RCA stent February 10, [address] Jorgensen Normal ejection fraction with moderate LVH and diastolic dysfunction by recent echo Bronchitis Progressive renal failure. Creatinine was 2.8 at baseline precath. Creatinine today 4.60 Active smoker Status post stroke 2013 Noncompliance with medications Plan Increase carvedilol 25 mg twice daily Continue minoxidil 5 mg twice daily Continue amlodipine 10 mg daily Continue hydralazine 100 mg 3 times daily Renal consult with Dr. Cardenas No family is present at this time. However, I had a long talk with his brother Kurtis and [id number] Janina yesterday BMP in a.m. Exam (Progress Note) - Constitutional Vitals: Period Temp Pulse Resp BP Sys/[place] Pulse Ox Last 24 Hr 98.5 F-99.9 F 55-94 16-25 129-170/67-87 94-99 Result/EKG - Labs CBC & BMP: 02/16/17 04:37 02/17/17 05:02 Labs: Laboratory Results - last 24 hr 02/17/17 05:02 Sodium 138 Potassium 3.7 Chloride 102 Carbon Dioxide 22 Anion Gap 17.7 H BUN 58 H Creatinine 4.60 H GFR Calculation 18 BUN/Creatinine Ratio 12.00 Glucose 111 H Calculated Osmolality 291.7 Calcium 9.0
--- NOTE | 2017-02-17 13:51 | Nephrology Consult Note ---
History of Present Illness Chief complaint: ARF on CRF History of present illness: Mr. Gregorio is a 56 year old male recently hospitalized for non-ST elevation [place]. He underwent cardiac cath on 02/11/2017. He has chronic renal failure and had a creatinine of 2.8 on the day of heart cath. He was discharged on 2016. He returned yesterday with hypertension shortness of breath and worsening renal failure. His hypertension has been treated and his shortness of breath has improved. Renal function continues to decline Home Medications Medication Instructions Recorded Confirmed Type Amlodipine Besylate 10 mg PO DAILY 02/10/17 02/15/17 History Hydrocodone/Acetaminophen [[place] 1 tablet PO Q6HR PRN 02/10/17 02/15/17 History 10-325 Tablet] Tizanidine HCl [Zanaflex] 2 mg PO TID 02/10/17 02/15/17 History Aspirin Chew Tab 81 mg PO DAILY #30 tablet 02/13/17 02/15/17 Rx Atorvastatin [Lipitor] 20 mg PO BEDTIME #30 tablet 02/13/17 02/15/17 Rx Carvedilol [Coreg] 12.5 mg PO BID #60 tablet 02/13/17 02/15/17 Rx Furosemide Tab [Lasix Tab] 40 mg PO DAILY #30 tablet 02/13/17 02/15/17 Rx Minoxidil [Loniten] 5 mg PO BID #60 tablet 02/13/17 02/15/17 Rx Ticagrelor [Brilinta] 90 mg PO BID #60 tablet 02/13/17 02/15/17 Rx hydrALAZINE TAB [Apresoline Tab] 50 mg PO TID #90 tablet 02/13/17 02/15/17 Rx Allergies Allergy/AdvReac Type Severity Reaction Status Date / Time No Known Allergies Allergy Unverified 02/09/17 23:53 Medical,Surgical,& Family Hx - Medical History Cardio: History of: Hypertension, [place] Neurology: History of: Cerebrovascular Accident (3 YEARS AGO, RIGHT SIDE DEFICIETS) Endocrine: History of: Dyslipidemia - Surgical History Cardiac Surgeries: Sugical HX of: Cardiac Catheterization - Family History Family History: Reports;: Family Cancer (Father), Family Diabetes (Mother), Family Hypertension (Sister) - Social History Smoking Status: Current every day smoker Frequency of Alcohol Use: Occasionally Type of Drug Use: None Review of Systems 12 point system: reviewed and no additional remarkable complaints except as stated Exam - Vital Signs Vital signs: Period Temp Pulse Resp BP Sys/[place] Pulse Ox Last 24 Hr 97.7 F-99.9 F 55-94 16-25 131-170/69-87 94-100 Exam: Gen.: Alert and oriented x3. ENT: Pupils equal round reactive to light. EOMs intact. Mucous membranes moist. Neck: Supple. No JVD or bruit. Cardiovascular: Regular rate and rhythm. No murmur rub or gallop Lungs: Clear Abdomen: Soft. Nontender. Positive bowel sounds. No organomegaly Extremities: No edema Results - Labs CBC & BMP: 02/16/17 04:37 02/17/17 05:02 Assessment and Plan (1) ARF (acute renal failure) Status: Acute Assessment and plan: 56-year-old man admitted with: * CRF stage III. This is late stage III. Baseline creatinine prior to heart cath 2.8. * ARF. This is due to contrast-induced nephropathy. He is on no nephrotoxic medications. He is not volume overloaded. Cautious hydration * Hypertension. Now controlled * CAD. Recent stent placement Current Visit: Yes (2) Chronic renal failure, stage 3 (moderate) Status: Acute Current Visit: Yes (3) History of stroke Status: Acute Current Visit: No (4) CAD (coronary artery disease) Status: Chronic Current Visit: No (5) Hypertension Status: Chronic Current Visit: No (6) Non-STEMI (non-ST elevated myocardial infarction) Status: Resolved Current Visit: No
[2017-02-17] MEDS: CARVEDILOL 25 MG TABLET PO SCH ×2 (14:06→22:25)
[2017-02-17] MEDS: DEXTROSE 5% NACL 0.45% 1,000 ML IV SCH (14:50)
[2017-02-17] MEDS: DOCUSATE SODIUM 100 MG CAPSULE PO SCH (22:23)
[2017-02-17] MEDS: LEVOFLOXACIN INJ 750 MG in PREMIX 1 EACH IV SCH (22:29)
[2017-02-18] MEDS: ALBUTEROL/IPRATROPIUM 3 ML NEB RESP TX SCH ×4 (01:41→19:17)
[2017-02-18 05:59] LABS: Calcium 8.9 MG/DL (8.5-10.1); Osmolality,Calculated 288.7 MOS/KG (273-304); Potassium 3.9 MMOL/L (3.5-5.1)
--- NOTE | 2017-02-18 06:21 | EKG Report ---
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
--- NOTE | 2017-02-18 07:52 | EKG Report ---
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
[2017-02-18] MEDS: amLODIPine 10 MG TABLET PO SCH (08:32)
[2017-02-18] MEDS: tiZANidine 4 MG TABLET PO SCH ×3 (08:32→20:50)
[2017-02-18] MEDS: MINOXIDIL 2.5 MG TABLET PO SCH ×2 (08:32→20:50)
[2017-02-18] MEDS: PANTOPRAZOLE 40 MG TABLET PO SCH (08:33)
[2017-02-18] MEDS: TICAGRELOR 90 MG TABLET PO SCH ×2 (08:33→20:50)
[2017-02-18] MEDS: DOCUSATE SODIUM 100 MG CAPSULE PO SCH ×2 (08:33→20:50)
[2017-02-18] MEDS: CARVEDILOL 25 MG TABLET PO SCH ×2 (08:33→20:50)
--- NOTE | 2017-02-18 13:05 | Nephrology Progress Note ---
Nephrology - PN: Subj Interval history: He complains of chest wall pain this morning. Mild SOB. Exam (PN)-Nephrology - Vital Signs Vital signs: Period Temp Pulse Resp BP Sys/[place] Pulse Ox Last 24 Hr 97.8 F-99.4 F 65-77 16-20 135-150/65-78 94-99 Exam: ENT: Normal Cardiovascular: Regular rate and rhythm. No murmur rub or gallop Lungs: Clear Extremities: No edema - Lab 02/16/17 04:37 02/18/17 04:32 Most recent lab results Calcium 8.9 MG/DL (8.5-10.1) 02/18/17 04:32 Assessment and Plan (1) ARF (acute renal failure) Status: Acute Assessment and plan: 56-year-old man admitted with: * CRF stage III. This is late stage III. Baseline creatinine prior to heart cath 2.8. * ARF. This is due to contrast-induced nephropathy. Creatinine is slightly better today. * Hypertension. Now controlled * CAD. Recent stent placement Current Visit: Yes (2) Chronic renal failure, stage 3 (moderate) Status: Acute Current Visit: Yes (3) History of stroke Status: Acute Current Visit: No (4) CAD (coronary artery disease) Status: Chronic Current Visit: No (5) Hypertension Status: Chronic Current Visit: No
[2017-02-18] MEDS ORDERED: BISACODYL 5 MG TABLET PO ONE (14:13)
[2017-02-18] MEDS ORDERED: MAGNESIUM HYDROXIDE SUSP 30 ML UDCUP PO ONE (14:13)
--- NOTE | 2017-02-18 14:32 | Cardiology Progress Note ---
<Vee Johnson E - Last Filed: 02/18/17 14:14> Assessment and Plan - Time spent with patient Time spent with patient: Greater than 30 minutes (1) Bronchitis Status: Acute Assessment and plan: See plan of care listed below Current Visit: Yes (2) Dyslipidemia Status: Chronic Assessment and plan: See plan of care listed below Current Visit: Yes (3) Noncompliance Status: Chronic Assessment and plan: See plan of care listed below Current Visit: Yes (4) Chest pain Status: Resolved Assessment and plan: See plan of care listed below Current Visit: No (5) Hypertension Status: Chronic Assessment and plan: See plan of care listed below Current Visit: No (6) History of stroke Status: Chronic Assessment and plan: See plan of care listed below Current Visit: No (7) LVH (left ventricular hypertrophy) due to hypertensive disease Status: Acute Current Visit: No (8) Smoker Status: Chronic Assessment and plan: See plan of care listed below Current Visit: No (9) CAD (coronary artery disease) Status: Chronic Assessment and plan: See plan of care listed below Current Visit: No (10) Chronic renal insufficiency, stage III (moderate) Status: Chronic Assessment and plan: See plan of care listed below Current Visit: No Cardiology - PN: Subj Interval history: Cardiology history and physical INKING MACHINE TENDER: DR. SHUKLA PCP: DR. JIAN ANGLIN [place], [place] SUMMARY: 56-year-old man admitted over the weekend with shortness of breath, cough, atypical chest pain and elevated blood pressure. Patient had been discharged home February 13, 2017 after requiring PCI to the right coronary artery for non-STEMI. (Moderate disease in the proximal and mid LAD - 50% lesions. Mild disease in circumflex). Echocardiogram revealed LVEF 55%, 3+ LVH, no significant valvular abnormality. Patient also has chronic renal insufficiency and history of noncompliance. He returned to the emergency department after not having taking his medications as prescribed. He has been diagnosed with bronchitis, worsened acute on chronic renal insufficiency, uncontrolled hypertension. Cardiac biomarkers, though elevated, lower than at recent discharge. EKG reveals LV strain pattern unchanged from prior admission. DAY 3 FEBRUARY 18, 2017: Over the weekend, patient said chest pain has improved. His cardiac biomarkers, though elevated, are lower than at recent discharge. Appreciate Dr. Ahn's management of patient's worsened renal insufficiency. Creatinine is slightly better today, noted to be 4.1. It peaked at 4.6 yesterday. Blood pressure seems to be better controlled. He is tolerating carvedilol, minoxidil, amlodipine and hydralazine. Avoiding CARINE inhibitors due to fear of worsening renal insufficiency. Today, I will add aspirin to his medication regimen. Low-dose Lovenox 30 mg subcu daily given his renal insufficiency. Hopefully, the patient will be eligible for discharge in the next 1-2 days. ASSESSMENT/PLAN: 1. CHEST PAIN - thought to be related to uncontrolled hypertension, bronchitis. This is NOT [place] 2. BRONNCHITIS - was put on Levaquin over the weekend. Improved. 3. CAD - Adding ASA. Continue Brilinta, betablockers. Start lipid lowering agent. 4. UNCONTROLLED HYPERTENSION -better control during hospital stay. Avoiding CARINE inhibitors for fear of worsening renal insufficiency. 5. DYSLIPIDEMIA - lipase was elevated last visit. Will restart lipid lowering agent if lipase okay tomorrow. 6. NON-COMPLIANCE -greater than 30 minutes was spent discussing the need for continued compliance with 2 family members today as well as with the patient. 7. ACUTE ON CHRONIC RENAL INSUFFICIENCY, STAGE III - nephrology continues to follow 8. CONSTIPATION -addressing with medications today 9. TOBACCOISM -reiterated the importance of tobacco cessation. 10. POST STROKE 2013 -continue current plan of care Exam (Progress Note) - Constitutional Vitals: Period Temp Pulse Resp BP Sys/Carr[place] Pulse Ox Last 24 Hr 97.8 F-99.4 F 65-77 16-20 135-150/65-78 94-99 Exam: General: [Appears well with no apparent distress.] [Pleasant and cooperative. ] [Appears comfortable.] HEENT: [PERRL, normocephalic, atraumatic. Mucous membranes moist. No jaundice noted. Conjunctiva moist and clear, sclerae anicteric] Neck: No JVD/HJR, no thyromegaly or lymphadenopathy noted. No carotid bruit appreciated Cardiac: [Regular rate and rhythm.] [No murmur rub or gallop.] Lungs: [Clear to auscultation without accessory muscle use to assist the respiratory pattern.] Not requiring oxygen Abdomen: Soft, bowel sounds normoactive. Nontender and nondistended. No abdominal bruit or thrill noted. No masses noted. Musculoskeletal: No fluid collection. Decreased range of motion is noted. Extremities: No clubbing, cyanosis noted. [ No edema noted.] Upper extremity pulses 2+. Lower extremity pulses 2+. Capillary refill less than 3 seconds. Skin: No unusual lesions or rashes. No skin breakdown appreciated. Neuro: Awake, alert and oriented 3. Moves all extremities well without hemiparesis or paralysis. No essential tremor is appreciated. Result/EKG - Labs CBC & BMP: 02/16/17 04:37 02/18/17 04:32 Lab Results: I have reviewed the past 24 hour labs Labs: Laboratory Results - last 24 hr 02/18/17 02/18/17 04:32 11:40 Sodium 138 Potassium 3.9 Chloride 103 Carbon Dioxide 22 Anion Gap 16.9 H BUN 52 H Creatinine 4.10 H GFR Calculation 21 BUN/Creatinine Ratio 12.00 Glucose 107 H Calculated Osmolality 288.7 Calcium 8.9 Total Creatine Kinase 90 D CK-MB (CK-2) 4.1 H Troponin I 6.770 H D - EKG EKG results: interpreted by me EKG shows: sinus rhythm <Jian Tabares - Last Filed: 02/18/17 17:57> Cardiology - PN: Subj Interval history: Patient personally interviewed and examined and chart reviewed. Discussed case with Vee Johnson COMPUTER SECURITY SPECIALIST. I agree with the note as is. Patient from cardiac standpoint remained stable but his creatinine is still elevated but improving. His blood pressures are still elevated. He does complains of epigastric discomfort this evening. He's had no palpitations. We appreciate nephrology is helping evaluation. Exam is as noted. This evening I note that he has some epigastric tenderness and chest wall soreness. His telemetry is stable. We will continue his present therapy. Exam (Progress Note) - Constitutional Vitals: Period Temp Pulse Resp BP Sys/[place] Pulse Ox Last 24 Hr 98.4 F-99.4 F 65-77 16-20 137-150/66-78 94-99 Result/EKG - Labs CBC & BMP: 02/16/17 04:37 02/18/17 04:32 Labs: Laboratory Results - last 24 hr 02/18/17 02/18/17 02/18/17 04:32 11:40 Unknown Sodium 138 Potassium 3.9 Chloride 103 Carbon Dioxide 22 Anion Gap 16.9 H BUN 52 H Creatinine 4.10 H GFR Calculation 21 BUN/Creatinine Ratio 12.00 Glucose 107 H Calculated Osmolality 288.7 Calcium 8.9 Total Creatine Kinase 90 D CK-MB (CK-2) 4.1 H Troponin I 6.770 H D Lipase 304.0
[2017-02-18] MEDS: ASPIRIN EC 81 MG TABLET PO SCH (16:26)
[2017-02-18] MEDS: DEXTROSE 5% NACL 0.45% 1,000 ML IV SCH (16:26)
[2017-02-18] MEDS: ENOXAPARIN 30 MG/0.3 ML SYRINGE SUBCUT SCH (16:27)
[2017-02-18] MEDS ORDERED: ALUMINUM/MAGNES/SIMETH MAX STR 30 ML UDCUP PO PRN (18:43)
[2017-02-19] MEDS: ALBUTEROL/IPRATROPIUM 3 ML NEB RESP TX SCH ×4 (01:42→20:13)
[2017-02-19 06:10] LABS: Basophils % 0.4 % (0.0-0.8); Eosinophils # 0.1 10*3/uL (0.0-0.87); Eosinophils % 1.5 % (0.00-10.9); Hematocrit 32.7 VOL% (42.0-52.0); Hemoglobin 10.7 GM/DL (14.0-18.0); Immature Granulocytes % 0.3 %; Immature Granulocytes Absolute 0.03 #; Lymphocytes # 1.2 10*3/uL (1.4-4.0); Lymphocytes % 13.9 % (21.2-54.2); Mean Corpuscular HGB Conc 32.7 GM/DL (32-36); Mean Corpuscular Hemoglobin 29 PG (27-34); Mean Corpuscular Volume 88.9 FL (87-102); Mean Platelet Volume 10.1 FL (9.6-12.0); Monocytes # 0.9 10*3/uL (0.11-0.8); Monocytes % 9.8 % (1.7-12.7); Neutrophils # 6.6 10*3/uL (1.4-7.4); Neutrophils % 74.1 % (38.7-73.9); Platelet Count 262 T/CUMM (130-400); Red Blood Count 3.68 MC/CUMM (3.8-5.5); Red Cell Distribution Width 11.8 % (9.3-17.3); White Blood Count 8.9 T/CUMM (4-12)
[2017-02-19 06:47] LABS: Calcium 8.7 MG/DL (8.5-10.1); Magnesium 2.8 MG/DL (1.8-2.4); Osmolality,Calculated 288.5 MOS/KG (273-304); Potassium 3.9 MMOL/L (3.5-5.1)
--- NOTE | 2017-02-19 07:57 | XRay Report ---
XR chest 2V Indication: Shortness of breath Comparison: 15 February 2017 Findings: The heart and mediastinum are normal in size and configuration. The pulmonary vascularity is normal in caliber. No lung infiltrates, effusions, pneumothorax or other abnormality is demonstrated. Impression: No acute cardiopulmonary disease. PROCEDURE INTERPRETED AT [facility] DEPARTMENT OF RADIOLOGY Final Report Signed by: Dr. Eduar Uriarte
[2017-02-19] MEDS: DEXTROSE 5% NACL 0.45% 1,000 ML IV SCH (08:56)
[2017-02-19] MEDS: DOCUSATE SODIUM 100 MG CAPSULE PO SCH ×2 (08:57→21:10)
[2017-02-19] MEDS: TICAGRELOR 90 MG TABLET PO SCH ×2 (08:57→21:10)
[2017-02-19] MEDS: PANTOPRAZOLE 40 MG TABLET PO SCH (08:57)
[2017-02-19] MEDS: amLODIPine 10 MG TABLET PO SCH (08:57)
[2017-02-19] MEDS: CARVEDILOL 25 MG TABLET PO SCH ×2 (08:57→21:10)
[2017-02-19] MEDS: tiZANidine 4 MG TABLET PO SCH ×3 (08:57→21:09)
[2017-02-19] MEDS: ASPIRIN EC 81 MG TABLET PO SCH (08:57)
[2017-02-19] MEDS: MINOXIDIL 2.5 MG TABLET PO SCH ×2 (08:57→21:10)
--- NOTE | 2017-02-19 13:43 | Nephrology Progress Note ---
Nephrology - PN: Subj Interval history: No shortness of breath today. Exam (PN)-Nephrology - Vital Signs Vital signs: Period Temp Pulse Resp BP Sys/[place] Pulse Ox Last 24 Hr 97.8 F-99.0 F 68-85 16-20 132-149/55-74 95-100 Exam: ENT: Normal Cardiovascular: Regular rate and rhythm. No murmur rub or gallop Lungs: Clear Extremities: No edema - Lab 02/19/17 05:28 02/19/17 05:28 Most recent lab results Calcium 8.7 MG/DL (8.5-10.1) 02/19/17 05:28 Magnesium 2.8 MG/DL (1.8-2.4) H 02/19/17 05:28 Assessment and Plan (1) ARF (acute renal failure) Status: Acute Assessment and plan: 56-year-old man admitted with: * CRF stage III. This is late stage III. Baseline creatinine prior to heart cath 2.8. * ARF. This is due to contrast-induced nephropathy. Creatinine is slowly improving * Hypertension. controlled * CAD. Recent stent placement Current Visit: Yes (2) Chronic renal failure, stage 3 (moderate) Status: Acute Current Visit: Yes (3) History of stroke Status: Chronic Current Visit: No (4) CAD (coronary artery disease) Status: Chronic Current Visit: No (5) Hypertension Status: Chronic Current Visit: No
[2017-02-19] MEDS: ENOXAPARIN 30 MG/0.3 ML SYRINGE SUBCUT SCH (15:01)
[2017-02-19 15:43] LABS: Apearance,Urine CLEAR (Clear); Bilirubin,Urine Negative (Negative); Blood, Urine Negative (Negative); Glucose,Urine (UA) Negative (Negative); Ketones,Urine Negative (Negative); Mucus,Urine Occasional /LPF (Occasional); Nitrite,Urine Negative (Negative); Protein,Urine Negative; RBC,Urine 1 /HPF (0-4); Squamous Epithelial Cell,Urine Occasional /HPF (0-10); Urine Color Yellow (Yellow); Urine Specific Gravity 1.011 (1.001-1.035); Urine Urobilinogen < 2.0 EU/DL (0.2-1.0); WBC,Urine 3 /HPF (0-6)
--- NOTE | 2017-02-19 15:50 | Cardiology Progress Note ---
<Vee Johnson E - Last Filed: 02/19/17 15:51> Assessment and Plan - Time spent with patient Time spent with patient: Greater than 30 minutes (1) Bronchitis Status: Resolved Assessment and plan: See plan of care listed below Current Visit: Yes (2) Dyslipidemia Status: Chronic Assessment and plan: See plan of care listed below Current Visit: Yes (3) Noncompliance Status: Chronic Assessment and plan: See plan of care listed below Current Visit: Yes (4) Hypertension Status: Chronic Assessment and plan: See plan of care listed below Current Visit: No (5) History of stroke Status: Chronic Assessment and plan: See plan of care listed below Current Visit: No (6) LVH (left ventricular hypertrophy) due to hypertensive disease Status: Chronic Current Visit: No (7) Smoker Status: Chronic Assessment and plan: See plan of care listed below Current Visit: No (8) CAD (coronary artery disease) Status: Chronic Assessment and plan: See plan of care listed below Current Visit: No (9) Chronic renal insufficiency, stage III (moderate) Status: Chronic Assessment and plan: See plan of care listed below Current Visit: No Cardiology - PN: Subj Interval history: FULLER BRUSH MAN: DR. SHUKLA PCP: DR. JIAN ANGLIN, [place], [place] SUMMARY: 56-year-old man admitted over the weekend with shortness of breath, cough, atypical chest pain and elevated blood pressure. Patient had been discharged home February 13, 2017 after requiring PCI to the right coronary artery for non-STEMI. (Moderate disease in the proximal and mid LAD - 50% lesions. Mild disease in circumflex). Echocardiogram revealed LVEF 55%, 3+ LVH, no significant valvular abnormality. Patient also has chronic renal insufficiency and history of noncompliance. He returned to the emergency department after not having taking his medications as prescribed. He has been diagnosed with bronchitis, worsened acute on chronic renal insufficiency, uncontrolled hypertension. Cardiac biomarkers, though elevated, lower than at recent discharge. EKG reveals LV strain pattern unchanged from prior admission. DAY 4 FEBRUARY 19, 2017: Patient's chest pain resolved over the weekend. His blood pressures well controlled since admission with adjustment of medications. Creatinine has improved slightly today (4.0) and we appreciate Dr. Cardenas'. Being gently hydrated with IV resuscitation. Hopefully, patient will be eligible for discharge in the next 1-2 days depending on his creatinine response. He is tolerating Carvedilol, Minoxidil, Amlodipine and Hydralazine. Avoiding CARINE inhibitors due to fear of worsening renal insufficiency. ASSESSMENT/PLAN: 1. CHEST PAIN - thought to be related to uncontrolled hypertension, bronchitis. This is NOT [place]. Chest pain resolved once blood pressure was controlled 2. BRONCHITIS - was put on Levaquin over the weekend. Improved. 3. CAD -continue aspirin, Brilinta, betablockers, lipid-lowering agent 4. UNCONTROLLED HYPERTENSION -better control during hospital stay. Avoiding CARINE inhibitors for fear of worsening renal insufficiency. 5. DYSLIPIDEMIA - lipase was elevated last visit. Rechecked this morning and it has normalized. Will start a low dose atorvastatin and monitor closely 6. NON-COMPLIANCE -greater than 30 minutes was spent discussing the need for continued compliance. Verbalized understanding 7. ACUTE ON CHRONIC RENAL INSUFFICIENCY, STAGE III - nephrology continues to follow 8. CONSTIPATION -resolved 9. TOBACCOISM -reiterated the importance of tobacco cessation. 10. POST STROKE 2013 -continue current plan of care Exam (Progress Note) - Constitutional Vitals: Period Temp Pulse Resp BP Sys/[place] Pulse Ox Last 24 Hr 97.8 F-99.0 F 68-85 16-20 132-149/55-74 95-100 Exam: General: [Appears well with no apparent distress.] [Pleasant and cooperative. ] [Appears comfortable.] HEENT: [PERRL, normocephalic, atraumatic. Mucous membranes moist. No jaundice noted. Conjunctiva moist and clear, sclerae anicteric] Neck: No JVD/HJR, no thyromegaly or lymphadenopathy noted. No carotid bruit appreciated Cardiac: [Regular rate and rhythm.] [No murmur rub or gallop.] Lungs: [Clear to auscultation without accessory muscle use to assist the respiratory pattern.] Not requiring oxygen Abdomen: Soft, bowel sounds normoactive. Nontender and nondistended. No abdominal bruit or thrill noted. No masses noted. Musculoskeletal: No fluid collection. Decreased range of motion is noted. Extremities: No clubbing, cyanosis noted. [ No edema noted.] Upper extremity pulses 2+. Lower extremity pulses 2+. Capillary refill less than 3 seconds. Skin: No unusual lesions or rashes. No skin breakdown appreciated. Neuro: Awake, alert and oriented 3. Moves all extremities well without hemiparesis or paralysis. No essential tremor is appreciated. Result/EKG - Labs CBC & BMP: 02/19/17 05:28 02/19/17 05:28 Lab Results: I have reviewed the past 24 hour labs Labs: Laboratory Results - last 24 hr 02/18/17 02/19/17 02/19/17 Unknown 05:28 05:28 WBC 8.9 RBC 3.68 L Hgb 10.7 L D Hct 32.7 L MCV 88.9 MCH 29 MCHC 32.7 RDW 11.8 Plt Count 262 MPV 10.1 Neut % (Auto) 74.1 H Lymph % (Auto) 13.9 L [place] % (Auto) 9.8 Eos % (Auto) 1.5 Baso % (Auto) 0.4 Neut # (Auto) 6.6 Lymph # (Auto) 1.2 L [place] # (Auto) 0.9 H Eos # (Auto) 0.1 Baso # (Auto) 0.0 Immature Gran % 0.3 Nucleated RBC % 0.0 Immature Gran # 0.03 Nucleated RBCs # 0.00 Sodium 139 Potassium 3.9 Chloride 106 Carbon Dioxide 23 Anion Gap 13.9 BUN 46 H Creatinine 4.00 H GFR Calculation 22 BUN/Creatinine Ratio 11.00 Glucose 107 H Calculated Osmolality 288.5 Calcium 8.7 Magnesium 2.8 H Lipase 304.0 - EKG EKG results: interpreted by me EKG shows: sinus rhythm <Jian Tabares - Last Filed: 02/19/17 18:05> Cardiology - PN: Subj Interval history: Patient personally interviewed, examined and his chart reviewed. Did discuss his case with Vee Johnson NP. I agree with the history as well as the examination and assessment. As already noted this patient's main issue at this time is his renal dysfunction. His creatinine at least is made some improvement as has his BUN. His cardiac status remained stable. We will discharge the patient when nephrology feels he is had maximum benefit here in the hospital. We'll continue to monitor his blood pressure. I do not think we need to be any more aggressive than we are for fear that dropping his blood pressure too much would cause progressive renal dysfunction. Hopefully we'll didn't go home soon. Exam (Progress Note) - Constitutional Vitals: Period Temp Pulse Resp BP Sys/[place] Pulse Ox Last 24 Hr 97.8 F-99.0 F 68-85 16-20 132-149/55-74 95-100 Result/EKG - Labs CBC & BMP: 02/19/17 05:28 02/19/17 05:28 Labs: Laboratory Results - last 24 hr 02/19/17 02/19/17 02/19/17 05:28 05:28 14:32 WBC 8.9 RBC 3.68 L Hgb 10.7 L D Hct 32.7 L MCV 88.9 MCH 29 MCHC 32.7 RDW 11.8 Plt Count 262 MPV 10.1 Neut % (Auto) 74.1 H Lymph % (Auto) 13.9 L [place] % (Auto) 9.8 Eos % (Auto) 1.5 Baso % (Auto) 0.4 Neut # (Auto) 6.6 Lymph # (Auto) 1.2 L [place] # (Auto) 0.9 H Eos # (Auto) 0.1 Baso # (Auto) 0.0 Immature Gran % 0.3 Nucleated RBC % 0.0 Immature Gran # 0.03 Nucleated RBCs # 0.00 Sodium 139 Potassium 3.9 Chloride 106 Carbon Dioxide 23 Anion Gap 13.9 BUN 46 H Creatinine 4.00 H GFR Calculation 22 BUN/Creatinine Ratio 11.00 Glucose 107 H Calculated Osmolality 288.5 Calcium 8.7 Magnesium 2.8 H Urine Color Yellow Urine Appearance Clear Urine pH 5.0 Ur Specific [place] 1.011 Urine Protein Negative Urine Glucose (UA) Negative Urine Ketones Negative Urine Blood Negative Urine Nitrate Negative Urine Bilirubin Negative Urine Urobilinogen < 2.0 H Urine Leukocytes Trace Urine RBC 1 Urine WBC 3 Ur Squamous Epith Cells Occasional Urine Mucus Occasional Ur Culture Indicated? Not indicated
[2017-02-19] MEDS ORDERED: LEVOFLOXACIN INJ 750 MG in PREMIX 1 EACH IV SCH (21:00)
[2017-02-19] MEDS: ATORVASTATIN 10 MG TABLET PO SCH (21:10)
[2017-02-20] MEDS: ALBUTEROL/IPRATROPIUM 3 ML NEB RESP TX SCH ×4 (01:24→18:59)
[2017-02-20 05:48] LABS: Basophils % 0.3 % (0.0-0.8); Eosinophils # 0.1 10*3/uL (0.0-0.87); Eosinophils % 1.5 % (0.00-10.9); Hematocrit 30.9 VOL% (42.0-52.0); Hemoglobin 10.1 GM/DL (14.0-18.0); Immature Granulocytes % 0.5 %; Immature Granulocytes Absolute 0.04 #; Lymphocytes # 1.2 10*3/uL (1.4-4.0); Mean Corpuscular HGB Conc 32.7 GM/DL (32-36); Mean Corpuscular Hemoglobin 29 PG (27-34); Mean Platelet Volume 10.4 FL (9.6-12.0); Monocytes % 10.8 % (1.7-12.7); Neutrophils # 6.6 10*3/uL (1.4-7.4); Neutrophils % 73.9 % (38.7-73.9); Platelet Count 265 T/CUMM (130-400); Red Blood Count 3.47 MC/CUMM (3.8-5.5); Red Cell Distribution Width 11.7 % (9.3-17.3); White Blood Count 8.9 T/CUMM (4-12)
[2017-02-20 06:12] LABS: Calcium 8.5 MG/DL (8.5-10.1); Magnesium 2.7 MG/DL (1.8-2.4); Osmolality,Calculated 286.5 MOS/KG (273-304); Potassium 3.9 MMOL/L (3.5-5.1)
[2017-02-20] MEDS: tiZANidine 4 MG TABLET PO SCH ×3 (08:45→21:32)
[2017-02-20] MEDS: DOCUSATE SODIUM 100 MG CAPSULE PO SCH ×2 (08:47→21:34)
[2017-02-20] MEDS: CARVEDILOL 25 MG TABLET PO SCH ×2 (08:47→21:35)
[2017-02-20] MEDS: PANTOPRAZOLE 40 MG TABLET PO SCH (08:47)
[2017-02-20] MEDS: amLODIPine 10 MG TABLET PO SCH (08:48)
[2017-02-20] MEDS: TICAGRELOR 90 MG TABLET PO SCH ×2 (08:48→21:34)
[2017-02-20] MEDS: MINOXIDIL 2.5 MG TABLET PO SCH ×2 (08:48→21:33)
[2017-02-20] MEDS: ASPIRIN EC 81 MG TABLET PO SCH (08:48)
[2017-02-20] MEDS: DEXTROSE 5% NACL 0.45% 1,000 ML IV SCH (08:49)
--- NOTE | 2017-02-20 11:01 | Cardiology Progress Note ---
<Vee Johnson E - Last Filed: 02/20/17 10:59> Assessment and Plan - Time spent with patient Time spent with patient: Greater than 30 minutes (1) Bronchitis Status: Resolved Assessment and plan: See plan of care listed below Current Visit: Yes (2) Dyslipidemia Status: Chronic Assessment and plan: See plan of care listed below Current Visit: Yes (3) Noncompliance Status: Chronic Assessment and plan: See plan of care listed below Current Visit: Yes (4) Hypertension Status: Chronic Assessment and plan: See plan of care listed below Current Visit: No (5) History of stroke Status: Chronic Assessment and plan: See plan of care listed below Current Visit: No (6) LVH (left ventricular hypertrophy) due to hypertensive disease Status: Chronic Current Visit: No (7) Smoker Status: Chronic Assessment and plan: See plan of care listed below Current Visit: No (8) CAD (coronary artery disease) Status: Chronic Assessment and plan: See plan of care listed below Current Visit: No (9) Chronic renal insufficiency, stage III (moderate) Status: Chronic Assessment and plan: See plan of care listed below Current Visit: No Cardiology - PN: Subj Interval history: PHOTOGRAPHIC INTELLIGENCE OFFICER: DR. SHUKLA PCP: DR. JIAN ANGLIN, [place], [place] SUMMARY: 56-year-old man admitted over the weekend with shortness of breath, cough, atypical chest pain and elevated blood pressure. Patient had been discharged home February 13, 2017 after requiring PCI to the right coronary artery for non-STEMI. (Moderate disease in the proximal and mid LAD - 50% lesions. Mild disease in circumflex). Echocardiogram revealed LVEF 55%, 3+ LVH, no significant valvular abnormality. Patient also has chronic renal insufficiency and history of noncompliance. He returned to the emergency department after not having taking his medications as prescribed. He has been diagnosed with bronchitis, worsened acute on chronic renal insufficiency, uncontrolled hypertension. Cardiac biomarkers, though elevated, lower than at recent discharge. EKG reveals LV strain pattern unchanged from prior admission. DAY 5 FEBRUARY 20, 2017: Patient's chest pain resolved over the weekend. His blood pressures well controlled since admission with adjustment of medications. Creatinine has improved slightly today (3.9) and we appreciate nephrology's help. Being gently hydrated with IV resuscitation. When okay with nephrology, he will be stable for discharge. He is tolerating Carvedilol, Minoxidil, Amlodipine and Hydralazine. Avoiding CARINE inhibitors due to fear of worsening renal insufficiency. ASSESSMENT/PLAN: 1. CHEST PAIN - thought to be related to uncontrolled hypertension, bronchitis. This is NOT [place]. Chest pain resolved once blood pressure was controlled 2. BRONCHITIS - was put on Levaquin over the weekend. Improved. 3. CAD - continue Aspirin, Brilinta, betablockers, lipid-lowering agent 4. UNCONTROLLED HYPERTENSION - better controlled during hospital stay. Avoiding CARINE inhibitors for fear of worsening renal insufficiency. 5. DYSLIPIDEMIA - lipase was elevated last visit. Rechecked this morning and it has normalized. Will start a low dose atorvastatin and monitor closely 6. NON-COMPLIANCE - greater than 30 minutes was spent discussing the need for continued compliance. Verbalized understanding 7. ACUTE ON CHRONIC RENAL INSUFFICIENCY, STAGE III - nephrology continues to follow 8. CONSTIPATION - resolved 9. TOBACCOISM - reiterated the importance of tobacco cessation. 10. POST STROKE 2013 - continue current plan of care Exam (Progress Note) - Constitutional Vitals: Period Temp Pulse Resp BP Sys/[place] Pulse Ox Last 24 Hr 98.1 F-99.1 F 68-84 18-21 114-152/57-88 97-100 Exam: General: [Appears well with no apparent distress.] [Pleasant and cooperative. ] [Appears comfortable.] HEENT: [PERRL, normocephalic, atraumatic. Mucous membranes moist. No jaundice noted. Conjunctiva moist and clear, sclerae anicteric] Neck: No JVD/HJR, no thyromegaly or lymphadenopathy noted. No carotid bruit appreciated Cardiac: [Regular rate and rhythm.] [No murmur rub or gallop.] Lungs: [Clear to auscultation without accessory muscle use to assist the respiratory pattern.] Not requiring oxygen Abdomen: Soft, bowel sounds normoactive. Nontender and nondistended. No abdominal bruit or thrill noted. No masses noted. Musculoskeletal: No fluid collection. Decreased range of motion is noted. Extremities: No clubbing, cyanosis noted. [ No edema noted.] Upper extremity pulses 2+. Lower extremity pulses 2+. Capillary refill less than 3 seconds. Skin: No unusual lesions or rashes. No skin breakdown appreciated. Neuro: Awake, alert and oriented 3. Moves all extremities well without hemiparesis or paralysis. No essential tremor is appreciated. Result/EKG - Labs CBC & BMP: 02/20/17 05:04 02/20/17 05:04 Lab Results: I have reviewed the past 24 hour labs Labs: Laboratory Results - last 24 hr 02/19/17 02/20/17 02/20/17 14:32 05:04 05:04 WBC 8.9 RBC 3.47 L Hgb 10.1 L Hct 30.9 L MCV 89.0 MCH 29 MCHC 32.7 RDW 11.7 Plt Count 265 MPV 10.4 Neut % (Auto) 73.9 Lymph % (Auto) 13.0 L [place] % (Auto) 10.8 Eos % (Auto) 1.5 Baso % (Auto) 0.3 Neut # (Auto) 6.6 Lymph # (Auto) 1.2 L [place] # (Auto) 1.0 H Eos # (Auto) 0.1 Baso # (Auto) 0.0 Immature Gran % 0.5 Nucleated RBC % 0.0 Immature Gran # 0.04 Nucleated RBCs # 0.00 Sodium 139 Potassium 3.9 Chloride 107 Carbon Dioxide 23 Anion Gap 12.9 BUN 41 H Creatinine 3.90 H GFR Calculation 23 BUN/Creatinine Ratio 10.00 Glucose 105 Calculated Osmolality 286.5 Calcium 8.5 Magnesium 2.7 H Urine Color Yellow Urine Appearance Clear Urine pH 5.0 Ur Specific [place] 1.011 Urine Protein Negative Urine Glucose (UA) Negative Urine Ketones Negative Urine Blood Negative Urine Nitrate Negative Urine Bilirubin Negative Urine Urobilinogen < 2.0 H Urine Leukocytes Trace Urine RBC 1 Urine WBC 3 Ur Squamous Epith Cells Occasional Urine Mucus Occasional Ur Culture Indicated? Not indicated - EKG EKG results: interpreted by me EKG shows: sinus rhythm <Jian Tabares Emanuel - Last Filed: 02/20/17 16:13> Cardiology - PN: Subj Interval history: Patient personally interviewed and examined by me and chart reviewed. Discuss case of Vee Johnson NP. Agree with history as well as examination and assessment. Patient from a cardiac standpoint remained stable. He is continuing his hydration with improving creatinine. Once he has reached maximum benefit from his hydration and nephrology i.e. Dr. Cardenas feels that he be discharged we will do so. Generally is doing well. He's had no rhythm disturbance or other cardiac symptomatology. Exam (Progress Note) - Constitutional Vitals: Period Temp Pulse Resp BP Sys/[place] Pulse Ox Last 24 Hr 98.0 F-99.1 F 66-84 16-21 114-152/57-88 96-100 Result/EKG - Labs CBC & BMP: 02/20/17 05:04 02/20/17 05:04 Labs: Laboratory Results - last 24 hr 02/20/17 02/20/17 05:04 05:04 WBC 8.9 RBC 3.47 L Hgb 10.1 L Hct 30.9 L MCV 89.0 MCH 29 MCHC 32.7 RDW 11.7 Plt Count 265 MPV 10.4 Neut % (Auto) 73.9 Lymph % (Auto) 13.0 L [place] % (Auto) 10.8 Eos % (Auto) 1.5 Baso % (Auto) 0.3 Neut # (Auto) 6.6 Lymph # (Auto) 1.2 L [place] # (Auto) 1.0 H Eos # (Auto) 0.1 Baso # (Auto) 0.0 Immature Gran % 0.5 Nucleated RBC % 0.0 Immature Gran # 0.04 Nucleated RBCs # 0.00 Sodium 139 Potassium 3.9 Chloride 107 Carbon Dioxide 23 Anion Gap 12.9 BUN 41 H Creatinine 3.90 H GFR Calculation 23 BUN/Creatinine Ratio 10.00 Glucose 105 Calculated Osmolality 286.5 Calcium 8.5 Magnesium 2.7 H
[2017-02-20] MEDS: ENOXAPARIN 30 MG/0.3 ML SYRINGE SUBCUT SCH (15:16)
--- NOTE | 2017-02-20 16:29 | Nephrology Progress Note ---
Nephrology - PN: Subj Interval history: He denies shortness breath or chest pain. Exam (PN)-Nephrology - Vital Signs Vital signs: Period Temp Pulse Resp BP Sys/[place] Pulse Ox Last 24 Hr 98.0 F-99.1 F 66-84 16-21 114-152/57-88 96-100 Exam: ENT: Normal Cardiovascular: Regular rate and rhythm. No murmur rub or gallop Lungs: Clear Extremities: No edema - Lab 02/20/17 05:04 02/20/17 05:04 Most recent lab results Calcium 8.5 MG/DL (8.5-10.1) 02/20/17 05:04 Magnesium 2.7 MG/DL (1.8-2.4) H 02/20/17 05:04 Assessment and Plan (1) ARF (acute renal failure) Status: Acute Assessment and plan: 56-year-old man admitted with: * CRF stage III. This is late stage III. Baseline creatinine prior to heart cath 2.8. * ARF. This is due to contrast-induced nephropathy. Renal function slowly improving. * Hypertension. controlled * CAD. Recent stent placement Current Visit: Yes (2) Chronic renal failure, stage 3 (moderate) Status: Acute Current Visit: Yes (3) History of stroke Status: Chronic Current Visit: No (4) CAD (coronary artery disease) Status: Chronic Current Visit: No (5) Hypertension Status: Chronic Current Visit: No
[2017-02-20] MEDS: ATORVASTATIN 10 MG TABLET PO SCH (21:33)
[2017-02-21] MEDS: ALBUTEROL/IPRATROPIUM 3 ML NEB RESP TX SCH ×4 (00:39→18:51)
[2017-02-21] MEDS: DEXTROSE 5% NACL 0.45% 1,000 ML IV SCH ×2 (02:53→20:45)
[2017-02-21] MEDS: PANTOPRAZOLE 40 MG TABLET PO SCH (08:40)
[2017-02-21] MEDS: amLODIPine 10 MG TABLET PO SCH (08:40)
[2017-02-21] MEDS: CARVEDILOL 25 MG TABLET PO SCH ×2 (08:40→20:43)
[2017-02-21] MEDS: tiZANidine 4 MG TABLET PO SCH ×3 (08:40→20:42)
[2017-02-21] MEDS: MINOXIDIL 2.5 MG TABLET PO SCH (08:40)
[2017-02-21] MEDS: DOCUSATE SODIUM 100 MG CAPSULE PO SCH ×2 (08:40→20:42)
[2017-02-21] MEDS: TICAGRELOR 90 MG TABLET PO SCH ×2 (08:40→20:43)
[2017-02-21] MEDS: ASPIRIN EC 81 MG TABLET PO SCH (08:40)
[2017-02-21 10:09] LABS: Calcium 8.9 MG/DL (8.5-10.1); Osmolality,Calculated 285.7 MOS/KG (273-304)
--- NOTE | 2017-02-21 13:04 | Cardiology Progress Note ---
<Vee Johnson E - Last Filed: 02/21/17 13:05> Assessment and Plan (1) Bronchitis Status: Resolved Assessment and plan: See plan of care listed below Current Visit: Yes (2) Dyslipidemia Status: Chronic Assessment and plan: See plan of care listed below Current Visit: Yes (3) Noncompliance Status: Chronic Assessment and plan: See plan of care listed below Current Visit: Yes (4) Hypertension Status: Chronic Assessment and plan: See plan of care listed below Current Visit: No (5) History of stroke Status: Chronic Assessment and plan: See plan of care listed below Current Visit: No (6) LVH (left ventricular hypertrophy) due to hypertensive disease Status: Chronic Current Visit: No (7) Smoker Status: Chronic Assessment and plan: See plan of care listed below Current Visit: No (8) CAD (coronary artery disease) Status: Chronic Assessment and plan: See plan of care listed below Current Visit: No (9) Chronic renal insufficiency, stage III (moderate) Status: Chronic Assessment and plan: See plan of care listed below Current Visit: No Cardiology - PN: Subj Interval history: INSPECTOR PAPER PRODUCTS: DR. SHUKLA PCP: DR. JIAN ANGLIN, [place], [place] SUMMARY: 56-year-old man admitted over the weekend with shortness of breath, cough, atypical chest pain and elevated blood pressure. Patient had been discharged home February 13, 2017 after requiring PCI to the right coronary artery for non-STEMI. (Moderate disease in the proximal and mid LAD - 50% lesions. Mild disease in circumflex). Echocardiogram revealed LVEF 55%, 3+ LVH, no significant valvular abnormality. Patient also has chronic renal insufficiency and history of noncompliance. He returned to the emergency department after not having taking his medications as prescribed. He has been diagnosed with bronchitis, worsened acute on chronic renal insufficiency, uncontrolled hypertension. Cardiac biomarkers, though elevated, lower than at recent discharge. EKG reveals LV strain pattern unchanged from prior admission. DAY 6, FEBRUARY 21, 2017: Patient's chest pain resolved over the weekend. His blood pressures has been averaging 120s. Creatinine increased from 3.9-4.0 overnight. Patient may benefit from higher perfusion pressures. His minoxidil 5 mg orally twice daily I will decrease to 2-1/2 mg orally twice daily. Hopefully, patient will be discharged home soon. When nephrology believes he is ready for discharge we will arrange for such. ASSESSMENT/PLAN: 1. CHEST PAIN - thought to be related to uncontrolled hypertension, bronchitis. This is NOT HI. Chest pain resolved once blood pressure was controlled 2. BRONCHITIS - was put on Levaquin over the weekend. Improved. Will stop after today's dose 3. CAD - continue Aspirin, Brilinta, betablockers, lipid-lowering agent 4. UNCONTROLLED HYPERTENSION -may in fact be somewhat too low for his kidney perfusion. We will decrease minoxidil. Avoiding CARINE inhibitors for fear of worsening renal insufficiency. 5. DYSLIPIDEMIA - Low-dose lipid-lowering agent 6. NON-COMPLIANCE - greater than 30 minutes was spent discussing the need for continued compliance. Verbalized understanding 7. ACUTE ON CHRONIC RENAL INSUFFICIENCY, STAGE III - nephrology continues to follow 8. CONSTIPATION - resolved 9. TOBACCOISM - reiterated the importance of tobacco cessation. 10. POST STROKE 2013 - continue current plan of care Exam (Progress Note) - Constitutional Vitals: Period Temp Pulse Resp BP Sys/[place] Pulse Ox Last 24 Hr 97.8 F-99.1 F 64-90 16-20 116-156/51-71 92-99 Exam: General: [Appears well with no apparent distress.] [Pleasant and cooperative. ] [Appears comfortable.] HEENT: [PERRL, normocephalic, atraumatic. Mucous membranes moist. No jaundice noted. Conjunctiva moist and clear, sclerae anicteric] Neck: No JVD/HJR, no thyromegaly or lymphadenopathy noted. No carotid bruit appreciated Cardiac: [Regular rate and rhythm.] [No murmur rub or gallop.] Lungs: [Clear to auscultation without accessory muscle use to assist the respiratory pattern.] Not requiring oxygen Abdomen: Soft, bowel sounds normoactive. Nontender and nondistended. No abdominal bruit or thrill noted. No masses noted. Musculoskeletal: No fluid collection. Decreased range of motion is noted. Extremities: No clubbing, cyanosis noted. [ No edema noted.] Upper extremity pulses 2+. Lower extremity pulses 2+. Capillary refill less than 3 seconds. Skin: No unusual lesions or rashes. No skin breakdown appreciated. Neuro: Awake, alert and oriented 3. Moves all extremities well without hemiparesis or paralysis. No essential tremor is appreciated. Result/EKG - Labs CBC & BMP: 02/20/17 05:04 02/21/17 09:20 Lab Results: I have reviewed the past 24 hour labs Labs: Laboratory Results - last 24 hr 02/21/17 09:20 Sodium 138 Potassium 4.0 Chloride 107 Carbon Dioxide 23 Anion Gap 12.0 BUN 38 H Creatinine 4.00 H GFR Calculation 22 BUN/Creatinine Ratio 9.00 Glucose 134 H Calculated Osmolality 285.7 Calcium 8.9 - EKG EKG results: interpreted by me EKG shows: sinus rhythm <Jian Tabares - Last Filed: 02/21/17 16:53> Cardiology - PN: Subj Interval history: Patient personally interviewed and examined and chart reviewed. Discussed case with Vee Johnson NP. I agree with the patient's history, exam and assessment. The patient cardiac-yip is stable and stable exam. His issue is that his creatinine now is gone back up. Dr. Neville is increasing his IV fluids. From our standpoint we will continue to monitor him in the hospital until Dr. Neville feels he reached maximum hospital benefit in order to protect his kidneys. Exam (Progress Note) - Constitutional Vitals: Period Temp Pulse Resp BP Sys/[place] Pulse Ox Last 24 Hr 97.8 F-99.1 F 64-90 17-20 116-156/51-71 92-99 Result/EKG - Labs CBC & BMP: 02/20/17 05:04 02/21/17 09:20 Labs: Laboratory Results - last 24 hr 02/21/17 09:20 Sodium 138 Potassium 4.0 Chloride 107 Carbon Dioxide 23 Anion Gap 12.0 BUN 38 H Creatinine 4.00 H GFR Calculation 22 BUN/Creatinine Ratio 9.00 Glucose 134 H Calculated Osmolality 285.7 Calcium 8.9
[2017-02-21] MEDS: ENOXAPARIN 30 MG/0.3 ML SYRINGE SUBCUT SCH (15:05)
--- NOTE | 2017-02-21 15:44 | Nephrology Progress Note ---
Nephrology - PN: Subj Interval history: No chest pain or shortness of breath Exam (PN)-Nephrology - Vital Signs Vital signs: Period Temp Pulse Resp BP Sys/[place] Pulse Ox Last 24 Hr 97.8 F-99.1 F 64-90 17-20 116-156/51-71 92-99 Exam: ENT: Normal Cardiovascular: Regular rate and rhythm. No murmur rub or gallop Lungs: Clear Extremities: No edema - Lab 02/20/17 05:04 02/21/17 09:20 Most recent lab results Calcium 8.9 MG/DL (8.5-10.1) 02/21/17 09:20 Magnesium 2.7 MG/DL (1.8-2.4) H 02/20/17 05:04 Assessment and Plan (1) ARF (acute renal failure) Status: Acute Assessment and plan: 56-year-old man admitted with: * CRF stage III. This is late stage III. Baseline creatinine prior to heart cath 2.8. * ARF. Creatinine slightly higher today. Increase IV fluid * Hypertension. controlled * CAD. Recent stent placement Current Visit: Yes (2) Chronic renal failure, stage 3 (moderate) Status: Acute Current Visit: Yes (3) History of stroke Status: Chronic Current Visit: No (4) CAD (coronary artery disease) Status: Chronic Current Visit: No (5) Hypertension Status: Chronic Current Visit: No
[2017-02-21] MEDS ORDERED: NITROGLYCERIN SL 0.4 MG TABLET SL ONE (18:50)
[2017-02-21] MEDS: ATORVASTATIN 10 MG TABLET PO SCH (20:43)
[2017-02-22] MEDS: ALBUTEROL/IPRATROPIUM 3 ML NEB RESP TX SCH ×4 (01:06→20:18)
[2017-02-22] MEDS: ASPIRIN EC 81 MG TABLET PO SCH (09:09)
[2017-02-22] MEDS: MINOXIDIL 2.5 MG TABLET PO SCH (09:09)
[2017-02-22] MEDS: amLODIPine 10 MG TABLET PO SCH (09:09)
[2017-02-22] MEDS: PANTOPRAZOLE 40 MG TABLET PO SCH (09:09)
[2017-02-22] MEDS: tiZANidine 4 MG TABLET PO SCH ×3 (09:09→22:13)
[2017-02-22] MEDS: DOCUSATE SODIUM 100 MG CAPSULE PO SCH ×2 (09:09→22:11)
[2017-02-22] MEDS: CARVEDILOL 25 MG TABLET PO SCH ×2 (09:10→22:13)
[2017-02-22] MEDS: TICAGRELOR 90 MG TABLET PO SCH ×2 (09:10→22:13)
[2017-02-22 12:34] LABS: Calcium 8.3 MG/DL (8.5-10.1); Osmolality,Calculated 287.4 MOS/KG (273-304)
--- NOTE | 2017-02-22 12:38 | Cardiology Progress Note ---
<Vee Johnson E - Last Filed: 02/22/17 12:38> Assessment and Plan - Time spent with patient Time spent with patient: Greater than 30 minutes (1) Bronchitis Status: Resolved Assessment and plan: See plan of care listed below Current Visit: Yes (2) Dyslipidemia Status: Chronic Assessment and plan: See plan of care listed below Current Visit: Yes (3) Noncompliance Status: Chronic Assessment and plan: See plan of care listed below Current Visit: Yes (4) Hypertension Status: Chronic Assessment and plan: See plan of care listed below Current Visit: No (5) History of stroke Status: Chronic Assessment and plan: See plan of care listed below Current Visit: No (6) LVH (left ventricular hypertrophy) due to hypertensive disease Status: Chronic Current Visit: No (7) Smoker Status: Chronic Assessment and plan: See plan of care listed below Current Visit: No (8) CAD (coronary artery disease) Status: Chronic Assessment and plan: See plan of care listed below Current Visit: No (9) Chronic renal insufficiency, stage III (moderate) Status: Chronic Assessment and plan: See plan of care listed below Current Visit: No Cardiology - PN: Subj Interval history: PHOTOGRAMMETRIC ENGINEER: DR. SHUKLA PCP: DR. JIAN ANGLIN, [place], [place] SUMMARY: 56-year-old man admitted over the weekend with shortness of breath, cough, atypical chest pain and elevated blood pressure. Patient had been discharged home February 13, 2017 after requiring PCI to the right coronary artery for non-STEMI. (Moderate disease in the proximal and mid LAD - 50% lesions. Mild disease in circumflex). Echocardiogram revealed LVEF 55%, 3+ LVH, no significant valvular abnormality. Patient also has chronic renal insufficiency and history of noncompliance. He returned to the emergency department after not having taking his medications as prescribed. He has been diagnosed with bronchitis, worsened acute on chronic renal insufficiency, uncontrolled hypertension. Cardiac biomarkers, though elevated, lower than at recent discharge. EKG reveals LV strain pattern unchanged from prior admission. DAY 7, FEBRUARY 22, 2017: Patient's chest pain resolved over the weekend. His blood pressures has been averaging 120s. Creatinine remains unchanged at 4.0. Hopefully, patient will be discharged home soon. When nephrology believes he is ready for discharge we will arrange for such. ASSESSMENT/PLAN: 1. CHEST PAIN - thought to be related to uncontrolled hypertension, bronchitis. This is NOT DC. Chest pain resolved once blood pressure was controlled 2. BRONCHITIS - resolved 3. CAD - continue Aspirin, Brilinta, betablockers, lipid-lowering agent 4. UNCONTROLLED HYPERTENSION - improved. 5. DYSLIPIDEMIA - Low-dose lipid-lowering agent 6. NON-COMPLIANCE - greater than 30 minutes was spent discussing the need for continued compliance. Verbalized understanding 7. ACUTE ON CHRONIC RENAL INSUFFICIENCY, STAGE III - nephrology continues to follow 8. CONSTIPATION - resolved 9. TOBACCOISM - reiterated the importance of tobacco cessation. 10. POST STROKE 2014 - continue current plan of care Exam (Progress Note) - Constitutional Vitals: Period Temp Pulse Resp BP Sys/C[place] Pulse Ox Last 24 Hr 98.1 F-98.6 F 64-80 16-22 106-155/57-91 95-99 Exam: General: [Appears well with no apparent distress.] [Pleasant and cooperative. ] [Appears comfortable.] HEENT: [PERRL, normocephalic, atraumatic. Mucous membranes moist. No jaundice noted. Conjunctiva moist and clear, sclerae anicteric] Neck: No JVD/HJR, no thyromegaly or lymphadenopathy noted. No carotid bruit appreciated Cardiac: [Regular rate and rhythm.] [No murmur rub or gallop.] Lungs: [Clear to auscultation without accessory muscle use to assist the respiratory pattern.] Not requiring oxygen Abdomen: Soft, bowel sounds normoactive. Nontender and nondistended. No abdominal bruit or thrill noted. No masses noted. Musculoskeletal: No fluid collection. Decreased range of motion is noted. Extremities: No clubbing, cyanosis noted. [ No edema noted.] Upper extremity pulses 2+. Lower extremity pulses 2+. Capillary refill less than 3 seconds. Skin: No unusual lesions or rashes. No skin breakdown appreciated. Neuro: Awake, alert and oriented 3. Moves all extremities well without hemiparesis or paralysis. No essential tremor is appreciated. Result/EKG - Labs CBC & BMP: 02/20/17 05:04 02/21/17 09:20 Lab Results: I have reviewed the past 24 hour labs - EKG EKG results: interpreted by me EKG shows: sinus rhythm <Jian Tabares - Last Filed: 02/22/17 18:06> Cardiology - PN: Subj Interval history: Patient personally interviewed and examined and chart reviewed. I discussed case with Vee Johnson TABLEAU ANALYST. I agree with assessment and plan. In summation and addition the patient is stable. His creatinine is 3.9 today. He is still receiving IV fluids. His exam is stable. We will recheck his lab work tomorrow and when okay with nephrology and/or his creatinine is at least flat and may discharge him then to follow-up as an outpatient. Exam (Progress Note) - Constitutional Vitals: Period Temp Pulse Resp BP Sys/C[place] Pulse Ox Last 24 Hr 98.1 F-98.8 F 65-88 16-22 106-155/57-91 95-99 Result/EKG - Labs CBC & BMP: 02/20/17 05:04 02/22/17 12:01 Labs: Laboratory Results - last 24 hr 02/22/17 12:01 Sodium 140 Potassium 4.0 Chloride 109 H Carbon Dioxide 22 Anion Gap 13.0 BUN 36 H Creatinine 3.90 H GFR Calculation 23 BUN/Creatinine Ratio 9.00 Glucose 113 H Calculated Osmolality 287.4 Calcium 8.3 L
--- NOTE | 2017-02-22 13:04 | Nephrology Progress Note ---
Nephrology - PN: Subj Interval history: No chest pain or shortness of breath. No new symptoms Exam (PN)-Nephrology - Vital Signs Vital signs: Period Temp Pulse Resp BP Sys/[place] Pulse Ox Last 24 Hr 98.1 F-98.6 F 65-80 16-22 106-155/57-91 95-99 Exam: ENT: Normal Cardiovascular: Regular rate and rhythm. No murmur rub or gallop Lungs: Clear Extremities: No edema - Lab 02/20/17 05:04 02/22/17 12:01 Most recent lab results Calcium 8.3 MG/DL (8.5-10.1) L 02/22/17 12:01 Magnesium 2.7 MG/DL (1.8-2.4) H 02/20/17 05:04 Assessment and Plan (1) ARF (acute renal failure) Status: Acute Assessment and plan: 56-year-old man admitted with: * CRF stage III. This is late stage III. Baseline creatinine prior to heart cath 2.8. * ARF. Renal function stable. Continue IV fluid. * Hypertension. controlled * CAD. Recent stent placement Current Visit: Yes (2) Chronic renal failure, stage 3 (moderate) Status: Acute Current Visit: Yes (3) History of stroke Status: Chronic Current Visit: No (4) CAD (coronary artery disease) Status: Chronic Current Visit: No (5) Hypertension Status: Chronic Current Visit: No
[2017-02-22] MEDS: ENOXAPARIN 30 MG/0.3 ML SYRINGE SUBCUT SCH (15:33)
[2017-02-22] MEDS: ATORVASTATIN 10 MG TABLET PO SCH (22:12)
[2017-02-23] MEDS: ALBUTEROL/IPRATROPIUM 3 ML NEB RESP TX SCH ×2 (00:28→07:31)
[2017-02-23] MEDS: DEXTROSE 5% NACL 0.45% 1,000 ML IV SCH (01:11)
[2017-02-23 04:44] LABS: Albumin 3.3 G/DL (3.4-5.0); Calcium 8.2 MG/DL (8.5-10.1); Osmolality,Calculated 286.4 MOS/KG (273-304); Phosphorous 3.8 MG/DL (2.5-4.9)
[2017-02-23 08:34] VITALS: BP 157/77
[2017-02-23] MEDS: ASPIRIN EC 81 MG TABLET PO SCH (09:24)
[2017-02-23] MEDS: CARVEDILOL 25 MG TABLET PO SCH (09:24)
[2017-02-23] MEDS: TICAGRELOR 90 MG TABLET PO SCH (09:24)
[2017-02-23] MEDS: DOCUSATE SODIUM 100 MG CAPSULE PO SCH (09:25)
[2017-02-23] MEDS: PANTOPRAZOLE 40 MG TABLET PO SCH (09:25)
[2017-02-23] MEDS: MINOXIDIL 2.5 MG TABLET PO SCH (09:25)
[2017-02-23] MEDS: amLODIPine 10 MG TABLET PO SCH (09:25)
[2017-02-23] MEDS: tiZANidine 4 MG TABLET PO SCH (09:25)
--- NOTE | 2017-02-23 13:54 | Nephrology Progress Note ---
Nephrology - PN: Subj Interval history: Patient is resting comfortably no acute changes. Serum creatinine stable with a creatinine of 3.7. No shortness of breath or chest pain. Exam (PN)-Nephrology - Vital Signs Vital signs: Period Temp Pulse Resp BP Sys/[place] Pulse Ox Last 24 Hr 98.8 F-99.1 F 65-88 16-20 129-157/60-77 93-100 - General Appearance General appearance: well-developed, well-nourished EENT: ATNC Neck: supple Respiratory: clear Cardiology: no edema, regular rate, regular rhythm Gastrointestinal: normoactive bowel sounds, no tenderness, no guarding Neurologic: CN 3-12 intact Musculoskeletal: no deformities, no clubbing Psychiatric: mood/affect appropriate - Lab 02/20/17 05:04 02/23/17 03:08 Most recent lab results Calcium 8.2 MG/DL (8.5-10.1) L 02/23/17 03:08 Phosphorus 3.8 MG/DL (2.5-4.9) 02/23/17 03:08 Magnesium 2.7 MG/DL (1.8-2.4) H 02/20/17 05:04 Assessment and Plan (1) Chronic renal failure, stage 3 (moderate) Status: Chronic Assessment and plan: Appears renal function is stable. No acute changes.
--- NOTE | 2017-02-23 13:58 | Event Note ---
Patient has left AMA. His monitor was left on the bed and his INT was found the bathroom. His telemetry failed to orange picker shortly after 10 a.m. and it was shortly after this it was felt that he had left.
--- NOTE | 2017-03-06 14:46 | Discharge Summary ---
Hospital Course - Hospital Course Hospital Course: Patient was admitted February 16, 2017 after recently being discharged home February 12, 2017. He is status post non-Q-wave infarction with mid RCA stent April 12, [address] Jorgensen. He was previously admitted for an [place] requiring PCI to the mid RCA. Patient was discharged on multiple cardiac medications with instructions to follow-up with his primary care provider, Dr. Omero Quiñonez , in 1 week for labs as he had acute on chronic renal insufficiency while hospitalized but had improved at discharge. Patient is noncompliant and returned to the ER February 16, 2017 with complaints of shortness of breath, cough , atypical chest pain and elevated blood pressure. His kidney function had again worsened. Nephrology was instrumental during the hospital stay managing his chronic renal insufficiency. He was treated for bronchitis, uncontrolled hypertension, acute on chronic renal insufficiency which worsened at a point to stage III. Patient's chest pain resolved after his cough was treated. Blood pressure also improved however kidney function was slow to improve. The morning of February 23, 2017, around 10 AM, patient's telemetry failed to pick pack worker and it was noted that he had left. His INT was found in the bathroom. His heart monitor was left on the bed. He left AMA. Diagnosis - Discharge Diagnosis (1) Chest wall pain Status: Resolved (2) CAD (coronary artery disease) Status: Chronic (3) Chronic renal failure, stage 3 (moderate) Status: Chronic (4) Dyslipidemia Status: Chronic (5) Hypertension Status: Chronic (6) LVH (left ventricular hypertrophy) due to hypertensive disease Status: Chronic (7) Noncompliance Status: Chronic (8) Smoker Status: Chronic Discharge Plan - Discharge Data Disposition: Left Against Medical Advice - Discharge Medications No Action Hydrocodone/Acetaminophen [[place] 10-325 Tablet] 1 tablet PO Q6HR PRN PRN Reason: Pain Amlodipine Besylate 10 mg PO DAILY Tizanidine HCl [Zanaflex] 2 mg PO TID Atorvastatin [Lipitor] 20 mg PO BEDTIME #30 tablet Carvedilol [Coreg] 12.5 mg PO BID #60 tablet Furosemide Tab [Lasix Tab] 40 mg PO DAILY #30 tablet Ticagrelor [Brilinta] 90 mg PO BID #60 tablet hydrALAZINE TAB [Apresoline Tab] 50 mg PO TID #90 tablet Aspirin Chew Tab 81 mg PO DAILY #30 tablet Minoxidil [Loniten] 5 mg PO BID #60 tablet - Follow Up or Referral - Forms/Instructions DS: Provider Date of admission: 02/15/17 22:37 Primary care physician: . No PCP Attending physician on admission: Moises Jorgensen MD Consults: 02/15/17 23:54 Consult to Pastoral Services [CONS] Routine Comment: Pastoral Screen: Request Container Washer Visit Pastoral Screen Source of Request: Patient 02/17/17 11:12 Consult to Physician [CONS] Routine Comment: Consulting Provider: Neil Cardenas When should Consulting Provider be notified: Now Person Notified: Answering service Date Notified: 02/17/17 Time Notified: 11:22 02/18/17 14:54 Consult to Pharmacy [CONS] Routine Reason for Pharmacy Consult: Adjust Meds Renal Funct Discharging clinician: Sunday Han MD Expected date of discharge: 02/23/17
== END 2017-02-23 12:53 | disposition left against medical advice (07) | DRG 144 ==
LOC: EDBD → EDUNIT# → N.ED 21:22 → N.EDINP 22:37 → N.TELEN 23:08
PROVIDERS: ADMIT Internal Medicine Cardiovascular Disease; ATTEND Internal Medicine Cardiovascular Disease

== ENCOUNTER 2018-02-16 18:35 | Inpatient (IN) ==
[2018-02-16 18:58] LABS: Basophils % 0.3 % (0.0-0.8); Eosinophils % 0.2 % (0.00-10.9); Hematocrit 37.8 VOL% (42.0-52.0); Hemoglobin 12.6 GM/DL (14.0-18.0); Immature Granulocytes % 0.6 %; Immature Granulocytes Absolute 0.08 #; Lymphocytes # 1.6 10*3/uL (1.4-4.0); Lymphocytes % 11.5 % (21.2-54.2); Mean Corpuscular HGB Conc 33.3 GM/DL (32-36); Mean Corpuscular Hemoglobin 29 PG (27-34); Mean Corpuscular Volume 87.7 FL (87-102); Monocytes # 1.4 10*3/uL (0.11-0.8); Monocytes % 10.1 % (1.7-12.7); Neutrophils # 10.5 10*3/uL (1.4-7.4); Neutrophils % 77.3 % (38.7-73.9); Platelet Count 234 T/CUMM (130-400); Red Blood Count 4.31 MC/CUMM (3.8-5.5); Red Cell Distribution Width 12.1 % (9.3-17.3); White Blood Count 13.5 T/CUMM (4-12)
[2018-02-16 19:27] LABS: Albumin 3.5 G/DL (3.4-5.0); Bilirubin,Total 1.7 MG/DL (0.2-1.0); Calcium 8.9 MG/DL (8.5-10.1); Lactic Acid 1.1 MMOL/L (0.4-2.0); Potassium 2.7 MMOL/L (3.5-5.1)
[2018-02-16 19:27] LABS: Apearance,Urine CLEAR (Clear); Bilirubin,Urine Negative (Negative); Blood, Urine Moderate mg/dL (Negative); Glucose,Urine (UA) Negative (Negative); Ketones,Urine Negative (Negative); Nitrite,Urine Negative (Negative); Protein,Urine 30 MG/DL; RBC,Urine 19 /HPF (0-4); Squamous Epithelial Cell,Urine Occasional /HPF (0-10); Urine Color Yellow (Yellow); Urine Specific Gravity 1.012 (1.001-1.035); WBC,Urine 3 /HPF (0-6)
[2018-02-16] MEDS ORDERED: cefTRIAXone 1,000 MG in SODIUM CHLORIDE 0.9% 100 ML IV STA (19:39)
[2018-02-16] MEDS ORDERED: ACETAMINOPHEN 500 MG TABLET PO STA (19:39)
[2018-02-16] MEDS ORDERED: AZITHROMYCIN INJ 500 MG in SODIUM CHLORIDE 0.9% 250 ML IV STA (19:40)
[2018-02-16] MEDS ORDERED: AZITHROMYCIN 500 MG VIAL IV ONE ×2 (19:45→20:01)
[2018-02-16] MEDS ORDERED: ACETAMINOPHEN 500 MG TABLET ONE (19:45)
[2018-02-16] MEDS ORDERED: cefTRIAXone 1,000 MG VIAL ONE (19:45)
[2018-02-16] MEDS ORDERED: SODIUM CHLORIDE 0.9% 100 ML IV ONE (19:46)
[2018-02-16] MEDS ORDERED: DOCUSATE SODIUM 100 MG CAPSULE PO PRN (21:43)
[2018-02-16] MEDS ORDERED: guaiFENesin/DM ER 600-30 MG TABLET PO PRN (21:43)
[2018-02-16] MEDS ORDERED: ONDANSETRON 4 MG/2 ML VIAL IV PRN (21:43)
[2018-02-16] MEDS ORDERED: MORPHINE 4 MG/1 ML VIAL IV PRN (21:43)
[2018-02-16] MEDS ORDERED: ALBUTEROL/IPRATROPIUM 3 ML NEB RESP TX PRN (21:43)
[2018-02-16] MEDS ORDERED: tiZANidine 4 MG TABLET PO PRN (21:43)
[2018-02-16] MEDS ORDERED: LEVOFLOXACIN INJ 500 MG in PREMIX 1 EACH IV ONE (22:00)
[2018-02-16] MEDS: SODIUM CHLOR 0.9% KCL 40 MEQ 40 MEQ/1,000 ML BAG IV SCH (22:37)
[2018-02-16] MEDS: ATORVASTATIN 20 MG TABLET PO SCH (22:38)
[2018-02-16] MEDS: CARVEDILOL 12.5 MG TABLET PO SCH (22:38)
[2018-02-16] MEDS: TICAGRELOR 90 MG TABLET PO SCH (22:38)
[2018-02-17] MEDS ORDERED: ASPIRIN 325 MG TABLET ONE (04:17)
[2018-02-17] MEDS: NITROGLYCERIN SL 0.4 MG TABLET SL PRN ×2 (04:19→04:24)
[2018-02-17] MEDS ORDERED: ASPIRIN CHEW 81 MG TABLET PO ONE (04:22)
[2018-02-17 04:35] LABS: Basophils # 0.1 10*3/uL (0.0-0.2); Basophils % 0.4 % (0.0-0.8); Eosinophils # 0.1 10*3/uL (0.0-0.87); Eosinophils % 0.4 % (0.00-10.9); Hemoglobin 12.2 GM/DL (14.0-18.0); Immature Granulocytes % 0.7 %; Lymphocytes # 0.9 10*3/uL (1.4-4.0); Lymphocytes % 6.1 % (21.2-54.2); Mean Corpuscular HGB Conc 34.9 GM/DL (32-36); Mean Corpuscular Hemoglobin 30 PG (27-34); Mean Corpuscular Volume 85.4 FL (87-102); Mean Platelet Volume 10.1 FL (9.6-12.0); Monocytes # 1.7 10*3/uL (0.11-0.8); Monocytes % 12.2 % (1.7-12.7); Neutrophils # 11.4 10*3/uL (1.4-7.4); Neutrophils % 80.2 % (38.7-73.9); Platelet Count 225 T/CUMM (130-400); Red Cell Distribution Width 12.1 % (9.3-17.3); White Blood Count 14.2 T/CUMM (4-12)
[2018-02-17 04:58] LABS: Lactic Acid 0.8 MMOL/L (0.4-2.0)
[2018-02-17 05:01] LABS: Albumin 2.9 G/DL (3.4-5.0); Bilirubin,Total 1.7 MG/DL (0.2-1.0); Calcium 7.8 MG/DL (8.5-10.1); Osmolality,Calculated 278.7 MOS/KG (273-304); Total Protein 6.2 G/DL (6.4-8.3)
[2018-02-17 06:28] LABS: ABG Base Excess -1.4 MMOL/L (-2.5-2.5); ABG HCO3 23.2 MMOL/L (20-26); ABG Oxygen Saturation 97.8 % (95-100); ABG PCO2 24.5 MM HG (35-48); ABG PH 7.521 (7.35-7.45); ABG PO2 86.9 MM HG (80-95); ABG TCO2 17.7 MMOL/L (23-27); Allen Test Positive
[2018-02-17] MEDS ORDERED: ENOXAPARIN 100 MG/ML SYRINGE SUBCUT SCH ×2 (06:30)
[2018-02-17 07:26] LABS: Calcium 8.1 MG/DL (8.5-10.1); Osmolality,Calculated 277.8 MOS/KG (273-304); Potassium 3.2 MMOL/L (3.5-5.1)
[2018-02-17] MEDS: ALBUTEROL/IPRATROPIUM 3 ML NEB RESP TX SCH ×5 (07:31→23:17)
[2018-02-17] MEDS: TICAGRELOR 90 MG TABLET PO SCH ×2 (10:13→21:34)
[2018-02-17] MEDS: amLODIPine 10 MG TABLET PO SCH (10:13)
[2018-02-17] MEDS: ASPIRIN CHEW 81 MG TABLET PO SCH (10:14)
[2018-02-17] MEDS: PANTOPRAZOLE 40 MG TABLET PO SCH (10:14)
[2018-02-17] MEDS: CARVEDILOL 12.5 MG TABLET PO SCH ×2 (10:14→21:34)
[2018-02-17 10:17] LABS: Troponin I Only 0.208 NG/ML (0.00-0.045)
[2018-02-17 14:36] LABS: Barbiturates Screen,Urine Negative (Negative); Benzodiazepines Screen,Urine Negative (Negative); Cannabinoid Screen,Urine Positive (Negative); Opiate Screen,Urine Negative (Negative); Phencyclidine Screen,Urine Negative (Negative)
[2018-02-17] MEDS: SODIUM CHLOR 0.9% KCL 40 MEQ 40 MEQ/1,000 ML BAG IV SCH (15:20)
[2018-02-17] MEDS: cefTRIAXone 1,000 MG in SYRINGE 1 EACH IV SCH (21:33)
[2018-02-17] MEDS: ATORVASTATIN 20 MG TABLET PO SCH (21:34)
[2018-02-17] MEDS ORDERED: LEVOFLOXACIN INJ 250 MG in PREMIX 1 EACH IV ONE (22:00)
[2018-02-18] MEDS: ALBUTEROL/IPRATROPIUM 3 ML NEB RESP TX SCH ×6 (02:48→22:45)
[2018-02-18] MEDS: SODIUM CHLOR 0.9% KCL 40 MEQ 40 MEQ/1,000 ML BAG IV SCH ×2 (03:13→17:48)
[2018-02-18 06:44] LABS: Basophils % 0.3 % (0.0-0.8); Eosinophils # 0.2 10*3/uL (0.0-0.87); Eosinophils % 1.4 % (0.00-10.9); Hematocrit 35.2 VOL% (42.0-52.0); Hemoglobin 11.7 GM/DL (14.0-18.0); Immature Granulocytes % 0.5 %; Immature Granulocytes Absolute 0.05 #; Lymphocytes # 1.3 10*3/uL (1.4-4.0); Lymphocytes % 11.7 % (21.2-54.2); Mean Corpuscular HGB Conc 33.2 GM/DL (32-36); Mean Corpuscular Hemoglobin 29 PG (27-34); Mean Corpuscular Volume 88.4 FL (87-102); Mean Platelet Volume 10.2 FL (9.6-12.0); Monocytes # 1.5 10*3/uL (0.11-0.8); Monocytes % 14.2 % (1.7-12.7); Neutrophils # 7.7 10*3/uL (1.4-7.4); Neutrophils % 71.9 % (38.7-73.9); Platelet Count 253 T/CUMM (130-400); Red Blood Count 3.98 MC/CUMM (3.8-5.5); Red Cell Distribution Width 12.4 % (9.3-17.3); White Blood Count 10.7 T/CUMM (4-12)
[2018-02-18 07:02] LABS: Calcium 8.3 MG/DL (8.5-10.1); Osmolality,Calculated 284.3 MOS/KG (273-304); Potassium 3.5 MMOL/L (3.5-5.1)
[2018-02-18 07:05] LABS: Risk Ratio 4.18; VLDL CHOLESTEROL 24.4 MG/DL
[2018-02-18] MEDS ORDERED: ENOXAPARIN 30 MG/0.3 ML SYRINGE SUBCUT SCH (09:00)
[2018-02-18] MEDS: TICAGRELOR 90 MG TABLET PO SCH ×2 (09:29→20:01)
[2018-02-18] MEDS: ASPIRIN CHEW 81 MG TABLET PO SCH (09:29)
[2018-02-18] MEDS: PANTOPRAZOLE 40 MG TABLET PO SCH (09:29)
[2018-02-18] MEDS: CARVEDILOL 12.5 MG TABLET PO SCH ×2 (09:29→20:01)
[2018-02-18] MEDS: amLODIPine 10 MG TABLET PO SCH (09:29)
[2018-02-18] MEDS ORDERED: POTASSIUM CHLORIDE RIDER 10 MEQ in PREMIX 1 EACH IV PRN (14:08)
[2018-02-18] MEDS ORDERED: MAGNESIUM SULF RIDER 2 GM in PREMIX 1 EACH IV PRN (14:08)
[2018-02-18] MEDS: cefTRIAXone 1,000 MG in SYRINGE 1 EACH IV SCH (20:01)
[2018-02-18] MEDS: ATORVASTATIN 20 MG TABLET PO SCH (20:01)
[2018-02-19] MEDS: ALBUTEROL/IPRATROPIUM 3 ML NEB RESP TX SCH ×6 (02:43→23:55)
[2018-02-19] MEDS: SODIUM CHLOR 0.9% KCL 40 MEQ 40 MEQ/1,000 ML BAG IV SCH (06:10)
[2018-02-19 06:22] LABS: Basophils # 0.1 10*3/uL (0.0-0.2); Basophils % 0.6 % (0.0-0.8); Eosinophils # 0.2 10*3/uL (0.0-0.87); Eosinophils % 2.6 % (0.00-10.9); Hematocrit 35.5 VOL% (42.0-52.0); Hemoglobin 11.5 GM/DL (14.0-18.0); Immature Granulocytes % 0.6 %; Immature Granulocytes Absolute 0.05 #; Lymphocytes # 1.4 10*3/uL (1.4-4.0); Lymphocytes % 17.4 % (21.2-54.2); Mean Corpuscular HGB Conc 32.4 GM/DL (32-36); Mean Corpuscular Hemoglobin 29 PG (27-34); Mean Platelet Volume 10.1 FL (9.6-12.0); Monocytes # 0.9 10*3/uL (0.11-0.8); Monocytes % 11.8 % (1.7-12.7); Neutrophils # 5.3 10*3/uL (1.4-7.4); Platelet Count 301 T/CUMM (130-400); Red Blood Count 3.99 MC/CUMM (3.8-5.5); Red Cell Distribution Width 12.5 % (9.3-17.3)
[2018-02-19 06:41] LABS: Calcium 8.6 MG/DL (8.5-10.1); Potassium 3.7 MMOL/L (3.5-5.1)
[2018-02-19] MEDS ORDERED: diphenhydrAMINE CAP 25 MG CAPSULE PO ONE (09:00)
[2018-02-19] MEDS ORDERED: DIAZEPAM 5 MG TABLET PO ONE (09:00)
[2018-02-19] MEDS: CARVEDILOL 12.5 MG TABLET PO SCH ×2 (09:08→20:37)
[2018-02-19] MEDS: amLODIPine 10 MG TABLET PO SCH (09:08)
[2018-02-19] MEDS: PANTOPRAZOLE 40 MG TABLET PO SCH (09:09)
[2018-02-19] MEDS: TICAGRELOR 90 MG TABLET PO SCH ×2 (09:09→20:37)
[2018-02-19] MEDS: ENOXAPARIN 40 MG/0.4 ML SYRINGE SUBCUT SCH (09:09)
[2018-02-19] MEDS: ASPIRIN CHEW 81 MG TABLET PO SCH (09:09)
[2018-02-19] MEDS ORDERED: HEPARIN/NACL 0.9% 2 UNITS/ML 500 ML IV ONE ×2 (12:07)
[2018-02-19] MEDS ORDERED: fentaNYL 100 MCG/2 ML VIAL ONE (12:38)
[2018-02-19] MEDS ORDERED: NITROGLYCERIN DRIP 50 MG/250 ML BOTTLE IV ONE (12:38)
[2018-02-19] MEDS ORDERED: VERAPAMIL 5 MG/2 ML VIAL ONE (12:38)
[2018-02-19] MEDS ORDERED: MIDAZOLAM 2 MG/2 ML VIAL ONE (12:38)
[2018-02-19] MEDS ORDERED: ENOXAPARIN 30 MG/0.3 ML SYRINGE ONE (12:57)
[2018-02-19] MEDS ORDERED: SODIUM CHLORIDE 0.45% 1,000 ML IV SCH (13:30)
[2018-02-19] MEDS: ATORVASTATIN 20 MG TABLET PO SCH (20:37)
[2018-02-19] MEDS: cefTRIAXone 1,000 MG in SYRINGE 1 EACH IV SCH (21:44)
[2018-02-20] MEDS: ALBUTEROL/IPRATROPIUM 3 ML NEB RESP TX SCH ×5 (02:43→21:05)
[2018-02-20] MEDS: SODIUM CHLOR 0.9% KCL 40 MEQ 40 MEQ/1,000 ML BAG IV SCH ×3 (05:27→20:09)
[2018-02-20 07:44] LABS: Basophils # 0.1 10*3/uL (0.0-0.2); Basophils % 0.8 % (0.0-0.8); Eosinophils # 0.2 10*3/uL (0.0-0.87); Eosinophils % 2.7 % (0.00-10.9); Hematocrit 33.5 VOL% (42.0-52.0); Hemoglobin 10.9 GM/DL (14.0-18.0); Immature Granulocytes % 0.5 %; Immature Granulocytes Absolute 0.04 #; Lymphocytes # 1.6 10*3/uL (1.4-4.0); Lymphocytes % 20.6 % (21.2-54.2); Mean Corpuscular HGB Conc 32.5 GM/DL (32-36); Mean Corpuscular Hemoglobin 29 PG (27-34); Mean Corpuscular Volume 89.6 FL (87-102); Monocytes # 0.7 10*3/uL (0.11-0.8); Monocytes % 9.6 % (1.7-12.7); Neutrophils # 4.9 10*3/uL (1.4-7.4); Neutrophils % 65.8 % (38.7-73.9); Platelet Count 318 T/CUMM (130-400); Red Blood Count 3.74 MC/CUMM (3.8-5.5); Red Cell Distribution Width 12.5 % (9.3-17.3); White Blood Count 7.5 T/CUMM (4-12)
[2018-02-20 08:17] LABS: Calcium 8.2 MG/DL (8.5-10.1); Osmolality,Calculated 285.1 MOS/KG (273-304); Potassium 3.9 MMOL/L (3.5-5.1)
[2018-02-20] MEDS: amLODIPine 10 MG TABLET PO SCH (09:04)
[2018-02-20] MEDS: ENOXAPARIN 40 MG/0.4 ML SYRINGE SUBCUT SCH (09:04)
[2018-02-20] MEDS: PANTOPRAZOLE 40 MG TABLET PO SCH (09:04)
[2018-02-20] MEDS: CARVEDILOL 12.5 MG TABLET PO SCH ×2 (09:04→21:27)
[2018-02-20] MEDS: ASPIRIN CHEW 81 MG TABLET PO SCH (09:04)
[2018-02-20] MEDS: cefTRIAXone 1,000 MG in SYRINGE 1 EACH IV SCH (21:27)
[2018-02-20] MEDS: ATORVASTATIN 20 MG TABLET PO SCH (21:27)
[2018-02-21] MEDS: ALBUTEROL/IPRATROPIUM 3 ML NEB RESP TX SCH ×3 (00:47→07:25)
[2018-02-21 05:06] LABS: Basophils % 0.6 % (0.0-0.8); Eosinophils # 0.2 10*3/uL (0.0-0.87); Eosinophils % 2.6 % (0.00-10.9); Hematocrit 34.3 VOL% (42.0-52.0); Immature Granulocytes % 0.8 %; Immature Granulocytes Absolute 0.05 #; Lymphocytes # 1.7 10*3/uL (1.4-4.0); Lymphocytes % 26.2 % (21.2-54.2); Mean Corpuscular HGB Conc 32.1 GM/DL (32-36); Mean Corpuscular Hemoglobin 29 PG (27-34); Mean Corpuscular Volume 89.3 FL (87-102); Mean Platelet Volume 9.8 FL (9.6-12.0); Monocytes # 0.6 10*3/uL (0.11-0.8); Monocytes % 9.5 % (1.7-12.7); Neutrophils # 3.9 10*3/uL (1.4-7.4); Neutrophils % 60.3 % (38.7-73.9); Platelet Count 323 T/CUMM (130-400); Red Blood Count 3.84 MC/CUMM (3.8-5.5); Red Cell Distribution Width 12.5 % (9.3-17.3); White Blood Count 6.5 T/CUMM (4-12)
[2018-02-21 05:43] LABS: Calcium 8.3 MG/DL (8.5-10.1); Potassium 4.5 MMOL/L (3.5-5.1)
[2018-02-21] MEDS: SODIUM CHLOR 0.9% KCL 40 MEQ 40 MEQ/1,000 ML BAG IV SCH (07:56)
[2018-02-21] MEDS: ASPIRIN CHEW 81 MG TABLET PO SCH (08:37)
[2018-02-21] MEDS: amLODIPine 10 MG TABLET PO SCH (08:37)
[2018-02-21] MEDS: PANTOPRAZOLE 40 MG TABLET PO SCH (08:37)
[2018-02-21] MEDS: CARVEDILOL 12.5 MG TABLET PO SCH (08:37)
[2018-02-21] MEDS: ENOXAPARIN 40 MG/0.4 ML SYRINGE SUBCUT SCH (08:38)
[2018-02-21 08:40] VITALS: BP 151/87
== END 2018-02-21 10:22 | disposition home or self-care (01) | DRG 194 ==
LOC: EDBD → EDUNIT# → N.ED 18:35 → SUATTDRO 20:08 → N.EDINP 20:08 → N.5E 20:40
PROVIDERS: ADMIT Family Medicine
PROC: CLCCHCL (ICD-10-PCS; 2018-02-19 13:45)

== ENCOUNTER 2021-09-17 02:25 | Inpatient (IN) ==
[2021-09-17] MEDS ORDERED: LABETALOL 20 MG/4 ML SYRINGE IV STA ×2 (03:20→04:58)
[2021-09-17 03:44] LABS: Basophils % 0.3 % (0.0-0.8); Eosinophils # 0.1 10*3/uL (0.0-0.87); Eosinophils % 0.5 % (0.00-10.9); Hematocrit 45.8 VOL% (42.0-52.0); Hemoglobin 14.8 GM/DL (14.0-18.0); Immature Granulocytes % 0.5 %; Immature Granulocytes Absolute 0.06 #; Lymphocytes # 1.1 10*3/uL (1.4-4.0); Lymphocytes % 9.7 % (21.2-54.2); Mean Corpuscular HGB Conc 32.3 GM/DL (32-36); Mean Corpuscular Volume 88.8 FL (87-102); Mean Platelet Volume 10.9 FL (9.6-12.0); Monocytes % 5.9 % (1.7-12.7); Neutrophils % 83.1 % (38.7-73.9); Platelet Count 182 T/CUMM (130-400); Red Blood Count 5.16 MC/CUMM (3.8-5.5); Red Cell Distribution Width 12.8 % (9.3-17.3); White Blood Count 11.7 T/CUMM (4-12)
[2021-09-17 03:50] LABS: Bacteria,Urine Occasional /HPF (Few); Bilirubin,Urine Negative (Negative); Blood, Urine Moderate mg/dL (Negative); Glucose,Urine (UA) 50 mg/dL (Negative); Ketones,Urine Negative (Negative); Mucus,Urine Occasional /LPF (Occasional); Nitrite,Urine Negative (Negative); Protein,Urine >=500 MG/DL; RBC,Urine 12 /HPF (0-4); Squamous Epithelial Cell,Urine Occasional /HPF (0-10); Urine Appearance Slightly Hazy (Clear); Urine Color Yellow (Yellow); Urine Specific Gravity 1.015 (1.001-1.035); Urine Urobilinogen < 2.0 EU/DL (0.2-1.0)
[2021-09-17 04:29] LABS: Albumin 2.9 G/DL (3.4-5.0); Bilirubin,Total 0.7 MG/DL (0.20-1.00); Calcium 8.4 MG/DL (8.5-10.1); Osmolality,Calculated 297.4 MOS/KG (273-304); Potassium 4.2 MMOL/L (3.5-5.1); Total Protein 6.7 G/DL (6.4-8.2)
[2021-09-17] MEDS ORDERED: amLODIPine 5 MG TABLET PO STA (04:42)
[2021-09-17] MEDS ORDERED: carvediloL 3.125 MG TABLET PO STA (04:43)
[2021-09-17] MEDS ORDERED: FUROSEMIDE 100 MG/10 ML VIAL IV STA (04:43)
[2021-09-17] MEDS ORDERED: FUROSEMIDE 40 MG/4 ML VIAL IV STA (04:44)
[2021-09-17] MEDS ORDERED: hydrALAZINE 20 MG/1 ML VIAL IV STA (05:13)
[2021-09-17] MEDS ORDERED: MORPHINE 2 MG/1 ML SYRINGE IV STA (05:50)
[2021-09-17] MEDS ORDERED: DEXTROSE 50% 25 GM/50 ML VIAL IV PRN (07:32)
[2021-09-17] MEDS ORDERED: MORPHINE 2 MG/1 ML SYRINGE IV PRN (07:32)
[2021-09-17] MEDS ORDERED: hydrALAZINE 20 MG/1 ML VIAL IV PRN (07:32)
[2021-09-17] MEDS ORDERED: ONDANSETRON 4 MG/2 ML VIAL IV PRN (07:32)
[2021-09-17] MEDS ORDERED: NICOTINE 21 MG/24 HR PATCH TRANSDERM PRN (07:32)
[2021-09-17] MEDS ORDERED: GLUCAGON 1 MG VIAL IM PRN (07:32)
[2021-09-17] MEDS ORDERED: guaiFENesin/DM ER 600-30 MG TABLET PO PRN (07:32)
[2021-09-17] MEDS ORDERED: ACETAMINOPHEN 325 MG TABLET PO PRN (07:32)
[2021-09-17] MEDS ORDERED: DOCUSATE SODIUM 100 MG CAPSULE PO PRN (07:32)
[2021-09-17] MEDS: HEPARIN 5,000 UNIT/1 ML VIAL SUBCUT SCH ×2 (08:42→20:15)
[2021-09-17] MEDS: SODIUM BICARB INJ 100 MEQ in SODIUM CHLORIDE 0.45% 1,000 ML IV SCH ×2 (08:45→19:46)
[2021-09-17] MEDS: PANTOPRAZOLE 40 MG TABLET PO SCH (08:47)
[2021-09-17] MEDS: ALBUTEROL 2.5 MG/3 ML NEB RESP TX SCH ×2 (12:55→20:36)
[2021-09-17] MEDS: carvediloL 12.5 MG TABLET PO SCH (20:15)
[2021-09-17] MEDS: ATORVASTATIN 20 MG TABLET PO SCH (20:15)
[2021-09-18] MEDS: ALBUTEROL 2.5 MG/3 ML NEB RESP TX SCH ×4 (00:48→19:50)
[2021-09-18 06:17] LABS: Basophils % 0.2 % (0.0-0.8); Eosinophils # 0.1 10*3/uL (0.0-0.87); Eosinophils % 1.3 % (0.00-10.9); Hematocrit 36.4 VOL% (42.0-52.0); Immature Granulocytes % 0.6 %; Immature Granulocytes Absolute 0.05 #; Lymphocytes # 1.2 10*3/uL (1.4-4.0); Lymphocytes % 12.9 % (21.2-54.2); Mean Platelet Volume 11.3 FL (9.6-12.0); Monocytes % 7.3 % (1.7-12.7); Neutrophils % 77.7 % (38.7-73.9); Platelet Count 159 T/CUMM (130-400); White Blood Count 8.9 T/CUMM (4-12)
[2021-09-18 06:18] LABS: Red Blood Count 4.09 MC/CUMM (3.8-5.5)
[2021-09-18] MEDS: SODIUM BICARB INJ 100 MEQ in SODIUM CHLORIDE 0.45% 1,000 ML IV SCH ×3 (06:35→16:00)
[2021-09-18 06:47] LABS: Albumin 2.3 G/DL (3.4-5.0); Bilirubin,Total 0.6 MG/DL (0.20-1.00); Calcium 8.1 MG/DL (8.5-10.1); Osmolality,Calculated 299.4 MOS/KG (273-304); Potassium 4.3 MMOL/L (3.5-5.1); Risk Ratio 5.47; Thyroid Stimulating Hormone 3.55 uIU/ml (0.358-3.74); Total Protein 5.6 G/DL (6.4-8.2); VLDL Cholesterol 26.8 MG/DL
[2021-09-18] MEDS: amLODIPine 10 MG TABLET PO SCH (08:12)
[2021-09-18] MEDS: PANTOPRAZOLE 40 MG TABLET PO SCH (08:12)
[2021-09-18] MEDS: HEPARIN 5,000 UNIT/1 ML VIAL SUBCUT SCH ×3 (08:12→20:23)
[2021-09-18] MEDS: carvediloL 12.5 MG TABLET PO SCH (08:12)
[2021-09-18] MEDS: hydrALAZINE 25 MG TABLET PO SCH ×3 (15:30→20:23)
[2021-09-18] MEDS ORDERED: LIDOCAINE 2% TOP JELLY 20 ML VIAL INTRAURETH ONE (16:17)
[2021-09-18] MEDS: ATORVASTATIN 20 MG TABLET PO SCH ×2 (19:59→20:23)
[2021-09-18] MEDS: TAMSULOSIN 0.4 MG CAPSULE PO SCH ×2 (20:02→20:23)
[2021-09-19] MEDS: ALBUTEROL 2.5 MG/3 ML NEB RESP TX SCH ×4 (00:37→19:40)
[2021-09-19] MEDS: SODIUM BICARB INJ 100 MEQ in SODIUM CHLORIDE 0.45% 1,000 ML IV SCH (01:45)
[2021-09-19 05:37] LABS: Basophils # 0.1 10*3/uL (0.0-0.2); Basophils % 0.6 % (0.0-0.8); Eosinophils # 0.2 10*3/uL (0.0-0.87); Eosinophils % 2.6 % (0.00-10.9); Hematocrit 33.2 VOL% (42.0-52.0); Hemoglobin 10.6 GM/DL (14.0-18.0); Immature Granulocytes % 0.4 %; Immature Granulocytes Absolute 0.03 #; Lymphocytes # 1.6 10*3/uL (1.4-4.0); Lymphocytes % 19.4 % (21.2-54.2); Mean Corpuscular HGB Conc 31.9 GM/DL (32-36); Mean Corpuscular Volume 89.2 FL (87-102); Monocytes % 10.4 % (1.7-12.7); Neutrophils % 66.6 % (38.7-73.9); Platelet Count 153 T/CUMM (130-400); Red Blood Count 3.72 MC/CUMM (3.8-5.5); Red Cell Distribution Width 12.8 % (9.3-17.3)
[2021-09-19 05:59] LABS: Albumin 2.4 G/DL (3.4-5.0); Bilirubin,Total 0.9 MG/DL (0.20-1.00); Calcium 7.8 MG/DL (8.5-10.1); Osmolality,Calculated 297.4 MOS/KG (273-304); Potassium 3.5 MMOL/L (3.5-5.1); Total Protein 5.6 G/DL (6.4-8.2)
[2021-09-19] MEDS: amLODIPine 10 MG TABLET PO SCH (09:07)
[2021-09-19] MEDS: PANTOPRAZOLE 40 MG TABLET PO SCH (09:07)
[2021-09-19] MEDS: HEPARIN 5,000 UNIT/1 ML VIAL SUBCUT SCH ×2 (09:07→21:57)
[2021-09-19] MEDS: SODIUM CHLORIDE 0.45% 1,000 ML IV SCH ×2 (10:06→22:03)
[2021-09-19 12:16] LABS: % Iron Saturation 20.9 % (18-50)
[2021-09-19 12:25] LABS: Folate 3.08 NG/ML (5.38-24.0)
[2021-09-19] MEDS: TAMSULOSIN 0.4 MG CAPSULE PO SCH (21:57)
[2021-09-19] MEDS: ATORVASTATIN 20 MG TABLET PO SCH (21:58)
[2021-09-20] MEDS: ALBUTEROL 2.5 MG/3 ML NEB RESP TX SCH ×4 (01:55→20:25)
[2021-09-20 05:50] LABS: Basophils % 0.5 % (0.0-0.8); Eosinophils # 0.2 10*3/uL (0.0-0.87); Eosinophils % 2.9 % (0.00-10.9); Hematocrit 33.4 VOL% (42.0-52.0); Hemoglobin 10.9 GM/DL (14.0-18.0); Immature Granulocytes % 0.5 %; Immature Granulocytes Absolute 0.03 #; Lymphocytes # 0.9 10*3/uL (1.4-4.0); Lymphocytes % 15.2 % (21.2-54.2); Mean Corpuscular HGB Conc 32.6 GM/DL (32-36); Mean Corpuscular Volume 89.8 FL (87-102); Mean Platelet Volume 11.4 FL (9.6-12.0); Monocytes % 8.3 % (1.7-12.7); Neutrophils % 72.6 % (38.7-73.9); Platelet Count 177 T/CUMM (130-400); Red Blood Count 3.72 MC/CUMM (3.8-5.5); Red Cell Distribution Width 12.8 % (9.3-17.3); White Blood Count 6.1 T/CUMM (4-12)
[2021-09-20 05:55] LABS: Osmolality,Calculated 295.5 MOS/KG (273-304); Potassium 3.5 MMOL/L (3.5-5.1)
[2021-09-20 06:02] LABS: Albumin 2.3 G/DL (3.4-5.0); Bilirubin,Total 1.3 MG/DL (0.20-1.00); Calcium 7.8 MG/DL (8.5-10.1); Osmolality,Calculated 298.3 MOS/KG (273-304); Potassium 3.6 MMOL/L (3.5-5.1); Total Protein 5.8 G/DL (6.4-8.2)
[2021-09-20] MEDS ORDERED: FUROSEMIDE 100 MG/10 ML VIAL IV ONE (09:00)
[2021-09-20] MEDS: amLODIPine 10 MG TABLET PO SCH (09:30)
[2021-09-20] MEDS: HEPARIN 5,000 UNIT/1 ML VIAL SUBCUT SCH ×2 (09:30→21:32)
[2021-09-20] MEDS: PANTOPRAZOLE 40 MG TABLET PO SCH (09:30)
[2021-09-20] MEDS: FINASTERIDE 5 MG TABLET PO SCH (09:31)
[2021-09-20] MEDS: FOLIC ACID 1 MG TABLET PO SCH (09:32)
[2021-09-20] MEDS: SODIUM CHLORIDE 0.45% 1,000 ML IV SCH (11:17)
[2021-09-20] MEDS: ATORVASTATIN 20 MG TABLET PO SCH (21:32)
[2021-09-20] MEDS: TAMSULOSIN 0.4 MG CAPSULE PO SCH (21:32)
[2021-09-21] MEDS: ALBUTEROL 2.5 MG/3 ML NEB RESP TX SCH ×4 (02:31→20:00)
[2021-09-21 06:01] LABS: Calcium 8.6 MG/DL (8.5-10.1); Osmolality,Calculated 290.8 MOS/KG (273-304); Potassium 3.5 MMOL/L (3.5-5.1)
[2021-09-21] MEDS ORDERED: carvediloL 12.5 MG TABLET PO SCH (09:00)
[2021-09-21] MEDS: HEPARIN 5,000 UNIT/1 ML VIAL SUBCUT SCH ×2 (09:17→20:34)
[2021-09-21] MEDS: FOLIC ACID 1 MG TABLET PO SCH (09:17)
[2021-09-21] MEDS: amLODIPine 10 MG TABLET PO SCH (09:18)
[2021-09-21] MEDS: PANTOPRAZOLE 40 MG TABLET PO SCH (09:18)
[2021-09-21] MEDS: FINASTERIDE 5 MG TABLET PO SCH (09:18)
[2021-09-21] MEDS: cloNIDine 0.1 MG TABLET PO SCH ×3 (09:18→20:32)
[2021-09-21] MEDS: TAMSULOSIN 0.4 MG CAPSULE PO SCH ×2 (09:21→20:32)
[2021-09-21] MEDS: ATORVASTATIN 20 MG TABLET PO SCH (20:32)
[2021-09-22] MEDS: ALBUTEROL 2.5 MG/3 ML NEB RESP TX SCH ×2 (01:25→07:20)
[2021-09-22 06:50] LABS: Basophils % 0.6 % (0.0-0.8); Eosinophils # 0.2 10*3/uL (0.0-0.87); Eosinophils % 4.2 % (0.00-10.9); Hematocrit 31.2 VOL% (42.0-52.0); Hemoglobin 9.8 GM/DL (14.0-18.0); Immature Granulocytes % 0.4 %; Immature Granulocytes Absolute 0.02 #; Lymphocytes # 1.2 10*3/uL (1.4-4.0); Lymphocytes % 26.1 % (21.2-54.2); Mean Corpuscular HGB Conc 31.4 GM/DL (32-36); Mean Corpuscular Volume 90.4 FL (87-102); Mean Platelet Volume 11.4 FL (9.6-12.0); Monocytes % 10.5 % (1.7-12.7); Neutrophils % 58.2 % (38.7-73.9); Platelet Count 225 T/CUMM (130-400); Red Blood Count 3.45 MC/CUMM (3.8-5.5); Red Cell Distribution Width 12.9 % (9.3-17.3); White Blood Count 4.8 T/CUMM (4-12)
[2021-09-22 07:13] LABS: Calcium 8.6 MG/DL (8.5-10.1); Osmolality,Calculated 289.8 MOS/KG (273-304); Potassium 3.8 MMOL/L (3.5-5.1)
[2021-09-22 07:47] VITALS: BP 157/88
[2021-09-22] MEDS: PANTOPRAZOLE 40 MG TABLET PO SCH (10:02)
[2021-09-22] MEDS: HEPARIN 5,000 UNIT/1 ML VIAL SUBCUT SCH (10:02)
[2021-09-22] MEDS: TAMSULOSIN 0.4 MG CAPSULE PO SCH (10:03)
[2021-09-22] MEDS: amLODIPine 10 MG TABLET PO SCH (10:03)
[2021-09-22] MEDS: FINASTERIDE 5 MG TABLET PO SCH (10:03)
[2021-09-22] MEDS: cloNIDine 0.1 MG TABLET PO SCH (10:03)
[2021-09-22] MEDS: FOLIC ACID 1 MG TABLET PO SCH (10:03)
== END 2021-09-22 12:30 | disposition home or self-care (01) | DRG 292 ==
LOC: EDUNIT# → EDBD → N.ED 02:25 → N.EDINP 07:32 → SUATTDRO 07:32 → N.5E 15:34
PROVIDERS: ADMIT Internal Medicine; ATTEND Internal Medicine

== ENCOUNTER 2021-10-05 08:00 | Inpatient (IN) ==
[2021-10-05] MEDS ORDERED: ONDANSETRON 4 MG/2 ML VIAL IV PRN (12:14)
[2021-10-05] MEDS ORDERED: PROMETHAZINE 25 MG TABLET PO PRN (12:14)
[2021-10-05] MEDS ORDERED: ACETAMINOPHEN 325 MG TABLET PO PRN (12:14)
[2021-10-05] MEDS ORDERED: BISACODYL 5 MG TABLET PO PRN (12:14)
[2021-10-05 17:08] LABS: Basophils % 0.6 % (0.0-0.8); Eosinophils # 0.2 10*3/uL (0.0-0.87); Eosinophils % 3.2 % (0.00-10.9); Hematocrit 32.2 VOL% (42.0-52.0); Hemoglobin 9.9 GM/DL (14.0-18.0); Immature Granulocytes % 0.5 %; Immature Granulocytes Absolute 0.03 #; Lymphocytes # 1.5 10*3/uL (1.4-4.0); Lymphocytes % 22.9 % (21.2-54.2); Mean Corpuscular HGB Conc 30.7 GM/DL (32-36); Mean Corpuscular Volume 93.6 FL (87-102); Mean Platelet Volume 10.3 FL (9.6-12.0); Monocytes % 7.9 % (1.7-12.7); Neutrophils % 64.9 % (38.7-73.9); Platelet Count 284 T/CUMM (130-400); Red Blood Count 3.44 MC/CUMM (3.8-5.5); Red Cell Distribution Width 12.8 % (9.3-17.3); White Blood Count 6.6 T/CUMM (4-12)
[2021-10-05 17:34] LABS: Albumin 3.2 G/DL (3.4-5.0); Calcium 8.1 MG/DL (8.5-10.1); Osmolality,Calculated 298.8 MOS/KG (273-304); Potassium 4.2 MMOL/L (3.5-5.1)
[2021-10-05 17:40] LABS: % Iron Saturation 18.1 % (18-50); Ferritin 242.3 ng/mL (26-388)
[2021-10-05 19:24] LABS: Hepatitis B Core IgM Quant 0.13 Index; Hepatitis B Surface Ag Quant < 0.10 Index; Hepatitis B Surface Ag Result Non-Reactive (NonReactive); Hepatitis C Virus Ab Quant 0.08 Index; Hepatitis C Virus Ab Result Non-Reactive (NonReactive)
[2021-10-05] MEDS: ATORVASTATIN 20 MG TABLET PO SCH (21:29)
[2021-10-06] MEDS ORDERED: IRON SUCROSE 100 MG/5 ML VIAL IV SCH (09:00)
[2021-10-06] MEDS: FINASTERIDE 5 MG TABLET PO SCH (09:37)
[2021-10-06] MEDS: PANTOPRAZOLE 40 MG TABLET PO SCH (09:37)
[2021-10-06] MEDS: FOLIC ACID 1 MG TABLET PO SCH (09:37)
[2021-10-06] MEDS: TAMSULOSIN 0.4 MG CAPSULE PO SCH ×2 (09:37→21:01)
[2021-10-06] MEDS ORDERED: FERRIC GLUCONATE COMPLEX 125 MG in SODIUM CHLORIDE 0.9% 100 ML IV SCH (10:00)
[2021-10-06] MEDS ORDERED: LIDOCAINE 1%/EPI INJ 20 ML VIAL ONE (11:19)
[2021-10-06] MEDS ORDERED: HEPARIN 5,000 UNIT/1 ML VIAL ONE (11:19)
[2021-10-06] MEDS ORDERED: BUPIVACAINE MPF 0.25% 30 ML VIAL ONE (11:19)
[2021-10-06] MEDS ORDERED: SODIUM CHLORIDE 0.9% 250 ML IV SCH (11:30)
[2021-10-06] MEDS ORDERED: hydrALAZINE 20 MG/1 ML VIAL ONE (12:07)
[2021-10-06] MEDS ORDERED: LIDOCAINE 2% 5 ML VIAL ONE (12:07)
[2021-10-06] MEDS ORDERED: propofoL 200 MG/20 ML VIAL IV ONE (12:07)
[2021-10-06] MEDS ORDERED: hydrALAZINE 20 MG/1 ML VIAL IV ONE (12:35)
[2021-10-06] MEDS ORDERED: HEPARIN 10,000 UNIT/10 ML VIAL IV SCH (16:30)
[2021-10-06] MEDS: ATORVASTATIN 20 MG TABLET PO SCH (21:01)
[2021-10-07] MEDS: TAMSULOSIN 0.4 MG CAPSULE PO SCH ×2 (08:12→20:38)
[2021-10-07] MEDS: PANTOPRAZOLE 40 MG TABLET PO SCH (08:13)
[2021-10-07] MEDS: FINASTERIDE 5 MG TABLET PO SCH (08:13)
[2021-10-07] MEDS: FOLIC ACID 1 MG TABLET PO SCH (08:13)
[2021-10-07] MEDS: APIXABAN 2.5 MG TABLET PO SCH ×2 (12:14→20:39)
[2021-10-07] MEDS: ATORVASTATIN 20 MG TABLET PO SCH (20:38)
[2021-10-08] MEDS: APIXABAN 2.5 MG TABLET PO SCH ×2 (13:08→20:32)
[2021-10-08] MEDS: FOLIC ACID 1 MG TABLET PO SCH (13:09)
[2021-10-08] MEDS: FINASTERIDE 5 MG TABLET PO SCH (13:09)
[2021-10-08] MEDS: TAMSULOSIN 0.4 MG CAPSULE PO SCH ×2 (13:09→20:32)
[2021-10-08] MEDS: PANTOPRAZOLE 40 MG TABLET PO SCH (13:09)
[2021-10-08] MEDS ORDERED: captopriL 25 MG TABLET PO ONE (16:48)
[2021-10-08] MEDS: ATORVASTATIN 20 MG TABLET PO SCH (20:32)
[2021-10-09 06:02] LABS: Basophils % 0.4 % (0.0-0.8); Eosinophils # 0.2 10*3/uL (0.0-0.87); Eosinophils % 2.9 % (0.00-10.9); Hematocrit 33.9 VOL% (42.0-52.0); Hemoglobin 10.3 GM/DL (14.0-18.0); Immature Granulocytes % 0.4 %; Immature Granulocytes Absolute 0.03 #; Lymphocytes # 1.1 10*3/uL (1.4-4.0); Lymphocytes % 15.9 % (21.2-54.2); Mean Corpuscular HGB Conc 30.4 GM/DL (32-36); Mean Corpuscular Volume 92.1 FL (87-102); Mean Platelet Volume 10.7 FL (9.6-12.0); Monocytes % 9.6 % (1.7-12.7); Neutrophils % 70.8 % (38.7-73.9); Platelet Count 253 T/CUMM (130-400); Red Blood Count 3.68 MC/CUMM (3.8-5.5); Red Cell Distribution Width 12.6 % (9.3-17.3)
[2021-10-09 06:36] LABS: Albumin 2.9 G/DL (3.4-5.0); Bilirubin,Total 1.3 MG/DL (0.20-1.00); Calcium 8.9 MG/DL (8.5-10.1); Osmolality,Calculated 284.5 MOS/KG (273-304); Potassium 3.6 MMOL/L (3.5-5.1); Total Protein 6.3 G/DL (6.4-8.2)
[2021-10-09] MEDS: PANTOPRAZOLE 40 MG TABLET PO SCH (08:43)
[2021-10-09] MEDS: FOLIC ACID 1 MG TABLET PO SCH (08:44)
[2021-10-09] MEDS: APIXABAN 2.5 MG TABLET PO SCH ×2 (08:44→20:38)
[2021-10-09] MEDS: TAMSULOSIN 0.4 MG CAPSULE PO SCH ×2 (08:44→20:38)
[2021-10-09] MEDS: FINASTERIDE 5 MG TABLET PO SCH (08:44)
[2021-10-09] MEDS ORDERED: cloNIDine 0.1 MG TABLET PO PRN (18:00)
[2021-10-09] MEDS: ATORVASTATIN 20 MG TABLET PO SCH (20:38)
[2021-10-09] MEDS: cloNIDine 0.1 MG TABLET PO SCH (20:38)
[2021-10-10] MEDS: FOLIC ACID 1 MG TABLET PO SCH (08:54)
[2021-10-10] MEDS: TAMSULOSIN 0.4 MG CAPSULE PO SCH (08:54)
[2021-10-10] MEDS: PANTOPRAZOLE 40 MG TABLET PO SCH (08:54)
[2021-10-10] MEDS: FINASTERIDE 5 MG TABLET PO SCH (08:54)
[2021-10-10] MEDS: APIXABAN 2.5 MG TABLET PO SCH (08:54)
[2021-10-10] MEDS: cloNIDine 0.1 MG TABLET PO SCH (08:54)
[2021-10-10 12:06] VITALS: BP 132/76
== END 2021-10-10 15:00 | disposition home or self-care (01) | DRG 674 ==
LOC: N.5E 15:31
PROVIDERS: ADMIT Internal Medicine Nephrology; ATTEND Internal Medicine Nephrology